=== PATIENT | male | born 1930 | race Caucasian/White ===

== ENCOUNTER 2017-01-05 07:56 | Emergency (ER) | payer MEDICARE, BC ==
[2017-01-05 08:07] VITALS: BP 142/62
--- NOTE | 2017-01-05 08:31 | UC ---
Eye Complaint HPI - HPI Summary HPI Summary: 86 yo male with right upper eyelid pain and redness x 2 days hurts to touch no d/c hx DM hx macular degeneration - History of Current Complaint Chief Complaint: UCEye Stated Complaint: EYE ISSUE Time Seen by Provider: 01/05/17 08:14 - Allergies/Home Medications Allergies/Adverse Reactions: Allergies Allergy/AdvReac Type Severity Reaction Status Date / Time No Known Allergies Allergy Verified 01/05/17 08:07 PMH/Surg Hx/FS Hx/Imm Hx Previously Healthy: Yes Endocrine History: Diabetes Cardiovascular History: Hypertension, Other Other Cardiovascular History: cardiomyopathy Respiratory History: COPD - Surgical History Surgical History: Yes Surgery Procedure, Year, and Place: T&A 17 YRS OF AGE- [facility]. APPENDECTOMY 2006- [place], [place]. RIGHT INGUINAL HERNIA REPAIR - [facility]. VASECTOMY - DR JUAREZ'S OFFICE. CATARACTS. TOOTH EXTRACTION. EYE LID SURGERY - Family History Known Family History: Positive: Hypertension, Diabetes - Social History Alcohol Use: None Alcohol Amount: taste of scotch Substance Use Type: None Smoking Status (MU): Former Smoker Type: Cigarettes Amount Used/How Often: 1/4-1/2 PPD FOR 20 YRS Length of Time of Smoking/Using Tobacco: 10 Have You Smoked in the Last Year: No When Did the Patient Quit Smoking/Using Tobacco: 1970 - Immunization History Most Recent Influenza Vaccination: 2015 Most Recent Tetanus Shot: remote Most Recent Pneumonia Vaccination: current Review of Systems Constitutional: Negative Skin: Negative Eyes: Negative ENT: Negative Respiratory: Negative Cardiovascular: Negative Gastrointestinal: Negative Genitourinary: Negative Motor: Negative Neurovascular: Negative Musculoskeletal: Negative Neurological: Negative Psychological: Negative All Other Systems Reviewed And Are Negative: Yes Physical Exam Triage Information Reviewed: Yes Appearance: Well-Appearing, No Pain Distress, Well-Nourished Vital Signs: Initial Vital Signs Temp 98.1 F 01/05/17 08:01 Pulse 77 01/05/17 08:01 Resp 16 01/05/17 08:01 BP 142/62 01/05/17 08:01 Pulse Ox 100 01/05/17 08:01 Eyes: Positive: Conjunctiva Clear, Other: - right upper lid sty (temopral aspect ) with upper lid cellulitis ENT: Positive: Hearing grossly normal. Negative: Nasal congestion, Nasal drainage, Trismus, Muffled/hoarse voice Neck: Positive: Supple, Nontender Respiratory: Positive: Lungs clear, Normal breath sounds, No respiratory distress, No accessory muscle use Cardiovascular: Positive: RRR, No Murmur Abdomen Description: Positive: Nontender, No Organomegaly Musculoskeletal: Positive: ROM Intact, No Edema Neurological: Positive: Alert Skin Exam: Normal Eye Complaint Course/Dx - Differential Dx/Diagnosis Provider Diagnoses: right upper eyelid stye with lid cellulitis Discharge - Discharge Plan Condition: Stable Disposition: HOME Prescriptions: Cephalexin CAP* [Keflex CAP*] 500 mg PO TID #21 cap Patient Education Materials: Cellulitis (ED), Stye (ED) Referrals: Chuck Jennings MD [Primary Care Provider] - Additional Instructions: lid cellulitis warm compresses recheck in 2-3 days if not improved
== END 2017-01-05 08:30 | disposition home or self-care (01) ==
LOC: UCEAST 07:56
DX: Z87.891 Personal history of nicotine dependence (principal); H00.011 Hordeolum externum right upper eyelid; H00.031 Abscess of right upper eyelid; E11.9 Type 2 diabetes mellitus without complications
CPT/HCPCS: 99212; G0463

== ENCOUNTER 2017-08-28 08:16 | Observation (INO) | payer MEDICARE, OTHER ==
[2017-08-28] MEDS ORDERED: NS 0.9% 1000 ML* 1,000 ML IV SCH (08:45)
[2017-08-28 09:07] LABS: ABS Basophils 0 10^3/ul (0-0.2); ABS Eosinophils 0.3 10^3/ul (0-0.6); ABS Lymphocytes 1.8 10^3/ul (1.0-4.8); ABS Monocytes 0.7 10^3/ul (0-0.8); ABS Neutrophils 5.9 10^3/ul (1.5-7.7); ABS Nucleated RBC 0 10^3/ul; Eosinophil % 3.3 % (0-6); Hematocrit 35 % (42-52); Hemoglobin 11.9 g/dl (14.0-18.0); Lymphocyte % 20.8 % (25-47); Mean Corpuscular HGB Conc 34 g/dl (31-36); Mean Corpuscular Hemoglobin 30 pg (27-31); Mean Corpuscular Volume 88 fL (80-94); Mean Platelet Volume 10 um3 (7.4-10.4); Nucleated Red Blood Cells % 0; Platelet Count 224 10^3/ul (150-450); Red Blood Count 3.98 10^6/ul (4.0-5.4); Red Cell Distribution Width 15 % (10.5-15); White Blood Count 8.8 10^3/ul (3.5-10.8)
--- NOTE | 2017-08-28 09:16 | RAD ---
INDICATION: Chest pain and tightness COMPARISON: Chest x-ray dated April 20, 2016 TECHNIQUE: Single AP portable view of the chest was obtained. FINDINGS: Image quality is compromised due to the relative inferiority of a portable chest x-ray. The heart and mediastinum exhibit normal size and contour. There is coarse atherosclerotic calcification overlying the arch of the aorta. The lungs are grossly clear. There is no evidence of a large pleural effusion. Visualized bones are normal for the patient's age. IMPRESSION: No radiographic evidence for acute cardiopulmonary abnormality on this portable chest x-ray.
[2017-08-28 09:19] LABS: EGFR Non-African American 76.1 (>60)
[2017-08-28 09:21] LABS: INR 0.87 (0.77-1.02)
[2017-08-28] MEDS ORDERED: Diltiazem IV* 5 MG/ML 5 ML VIAL (for loading dose/IV Push) (25 MG) IV SLOW PU ONE (09:21)
[2017-08-28] MEDS ORDERED: Diltiazem DRIP* 100 MG/100 ML ADDV.BAG IVPB ONE (09:21)
[2017-08-28] MEDS ORDERED: Furosemide TAB* 20 MG PO ONE (12:14)
--- NOTE | 2017-08-28 12:18 | ED ---
Matt Deal Angela, scribed for Dionisio Pelayo MD on 08/28/17 at 0841 . HPI Chest Pain - HPI Summary HPI Summary: This pt is a 87 y/o male presenting to [facility] c/o chest tightness since 22:00 last night. 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 Pt reports he thought he had indigestion after he ate the cookies. He notes he feels SOB and "winded" since last night. 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 He notes he was unable to sleep last night secondary to chest tightness. He rates his chest tightness 3-4 out of 10 in severity. Pt additionally reports he has a cough. Denies nausea, abd pain, LE swelling, calf pain. His meat carver is Dr. Polo. He notes hx of leaking mitral valve. Usually takes baby aspirin every day. Since he has an upcoming eye surgery he was told to stop taking them. Today he took bystolic (which he takes once a day, has taken it for 1 year now ) and 1 full aspirin. - History of Current Complaint Chief Complaint: EDChestPainROMI Hx Obtained From: Patient Onset/Duration: Started Hours Ago, Still Present Timing: Lasting Hours Current Severity: Mild Pain Intensity: 3 Pain Scale Used: 0-10 Numeric Chest Pain Location: Diffuse Chest Pain Radiates: No Character: Tightness Aggravating Factor(s): Nothing Alleviating Factor(s): Nothing Associated Signs and Symptoms: Positive: Chest Pain, Shortness of Breath, Cough. Negative: Nausea, Abdominal Pain, Calf Pain/Swelling - Allergy/Home Medications Allergies/Adverse Reactions: Allergies Allergy/AdvReac Type Severity Reaction Status Date / Time No Known Allergies Allergy Verified 08/28/17 08:24 Home Medications: Home Medications Albuterol HFA INHALER* [Ventolin HFA Inhaler*] 2 puff INH Q4H PRN 08/28/17 [ History Confirmed 08/28/17] Fluticasone/Vilanterol MDI(NF) [Breo Ellipta MDI 200/25(NF)] 1 puff INH DAILY [History Confirmed 08/28/17] Metformin ER (NF) 250 mg PO DAILY 08/28/17 [History Confirmed 08/28/17] Berkey-3 Fatty Acids (Nf) [Fish Oil (NF)] 1,000 mg PO DAILY 08/28/17 [History Confirmed 08/28/17] PMH/Surg Hx/FS Hx/Imm Hx Endocrine/Hematology History: Reports: Hx Diabetes - ON METFORMIN Denies: Hx Thyroid Disease Cardiovascular History: Reports: Hx Hypertension - ON MEDICATION, 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", Other Cardiovascular Problems/Disorders Denies: Hx Pacemaker/ICD Respiratory History: Reports: Hx Asthma - ALLERGIES, Hx Chronic Obstructive Pulmonary Disease (COPD), Hx Seasonal Allergies GI History: Reports: Hx Gastroesophageal Reflux Disease, Hx Irritable Bowel - years ago Denies: Hx Ulcer, Other GI Disorders History: Reports: Hx Benign Prostatic Hyperplasia, Hx Kidney Stones, Other Problems/Disorders - BPH Denies: Hx Dialysis, Hx Renal Disease Musculoskeletal History: Reports: Hx Arthritis - LOWER BACK, HIPS Denies: Hx Osteoporosis Sensory History: Reports: Hx Contacts or Glasses Denies: Hx Hearing Aid, Hx Hearing Problem Opthamlomology History: Reports: Hx Contacts or Glasses Neurological History: Denies: Hx Migraine, Hx Spinal Cord Injury, Hx Transient Ischemic Attacks ( TIA) Psychiatric History: Denies: Hx Panic Disorder - Surgical History Surgery Procedure, Year, and Place: T&A 16 YRS OF AGE- [facility]. APPENDECTOMY 2006- [place], [place]. RIGHT INGUINAL HERNIA REPAIR - [facility]. VASECTOMY - DR JUAREZ'S OFFICE. CATARACTS. TOOTH EXTRACTION. EYE LID SURGERY Hx Anesthesia Reactions: No Infectious Disease History: No Infectious Disease History: Reports: Hx Shingles - 4 years ago Denies: Hx Hepatitis, Hx Human Immunodeficiency Virus (HIV), Hx of Known/ Suspected MRSA, Traveled Outside the [place] in Last 30 Days - Family History Known Family History: Positive: Hypertension, Diabetes - Social History Alcohol Use: None Alcohol Amount: taste of scotch Substance Use Type: Reports: None Hx Tobacco Use: No Smoking Status (MU): Former Smoker Type: Cigarettes Amount Used/How Often: 1/4-1/2 PPD FOR 20 YRS Length of Time of Smoking/Using Tobacco: 10 Have You Smoked in the Last Year: No Review of Systems Negative: Fever Positive: Chest Pain Positive: Shortness Of Breath, Cough Negative: Abdominal Pain, Nausea Negative: Edema Skin: Negative Neurological: Negative All Other Systems Reviewed And Are Negative: Yes Physical Exam - Summary Physical Exam Summary: General: well-appearing, no pain distress Skin: warm, color reflects adequate perfusion, dry Head: normal Eyes: EOMI, HEATHER ENT: normal Neck: supple, nontender Respiratory: CTA, breath sounds present Cardiovascular: tachycardic and irregularly irregular rhythm Abdomen: soft, nontender Bowel: present Musculoskeletal: normal, strength/ROM intact Neurological: normal, sensory/motor intact, A&O x3 Psychological: affect/mood appropriate Triage Information Reviewed: Yes Vital Signs On Initial Exam: Initial Vitals Temp Pulse Resp BP Pulse Ox 98.3 F 130 19 168/88 98 08/28/17 08:19 08/28/17 08:19 08/28/17 08:19 08/28/17 08:19 08/28/17 08:19 Vital Signs Reviewed: Yes Diagnostics - Vital Signs Vital Signs Temp Pulse Resp BP Pulse Ox 08/28/17 08:19 98.3 F 130 19 168/88 98 - Laboratory Lab Results: Lab Results 08/28/17 08/28/17 08/28/17 Range/Units 08:35 08:35 08:35 WBC (3.5-10.8) 10^3/ul RBC (4.0-5.4) 10^6/ul Hgb (14.0-18.0) g/dl Hct (42-52) % MCV (80-94) fL MCH (27-31) pg MCHC (31-36) g/dl RDW (10.5-15) % Plt Count (150-450) 10^3/ul MPV (7.4-10.4) um3 Neut % (Auto) (38-83) % Lymph % (Auto) (25-47) % [place] % (Auto) (0-7) % Eos % (Auto) (0-6) % Baso % (Auto) (0-2) % Absolute Neuts (auto) (1.5-7.7) 10^3/ul Absolute Lymphs (auto) (1.0-4.8) 10^3/ul Absolute Monos (auto) (0-0.8) 10^3/ul Absolute Eos (auto) (0-0.6) 10^3/ul Absolute Basos (auto) (0-0.2) 10^3/ul Absolute Nucleated RBC 10^3/ul Nucleated RBC % INR (Anticoag Therapy) 0.87 (0.77-1.02) APTT 25.8 L (26.0-36.3) seconds D-Dimer, Quantitative < 200 (Less Than 230) ng/mL Sodium 136 (133-145) mmol/L Potassium 4.3 (3.5-5.0) mmol/L Chloride 102 (101-111) mmol/L Carbon Dioxide 26 (22-32) mmol/L Anion Gap 8 (2-11) mmol/L BUN 14 (6-24) mg/dL Creatinine 0.94 (0.67-1.17) mg/dL Est GFR ( Amer) 97.9 (>60) Est GFR (Non-Af Amer) 76.1 (>60) BUN/Creatinine Ratio 14.9 (8-20) Glucose 141 H (70-100) mg/dL Lactic Acid (0.5-2.0) mmol/L Calcium 9.0 (8.6-10.3) mg/dL Magnesium 2.1 (1.9-2.7) mg/dL Total Bilirubin 0.40 (0.2-1.0) mg/dL AST 30 (13-39) U/L ALT 36 (7-52) U/L Alkaline Phosphatase 41 (34-104) U/L Total Creatine Kinase 114 (10-223) U/L CK-MB (CK-2) 5.7 (0.6-6.3) ng/mL Troponin I 0.03 (<0.04) ng/mL C-Reactive Protein 14.89 H (< 5.00) mg/L B-Natriuretic Peptide 1081 H ( - 100) pg/mL Total Protein 6.2 L (6.4-8.9) g/dL Albumin 3.7 (3.2-5.2) g/dL Globulin 2.5 (2-4) g/dL Albumin/Globulin Ratio 1.5 (1-3) Lipase < 10 L (11.0-82.0) U/L TSH 2.98 (0.34-5.60) mcIU/mL 08/28/17 08/28/17 Range/Units 08:35 08:35 WBC 8.8 (3.5-10.8) 10^3/ul RBC 3.98 L (4.0-5.4) 10^6/ul Hgb 11.9 L (14.0-18.0) g/dl Hct 35 L (42-52) % MCV 88 (80-94) fL MCH 30 (27-31) pg MCHC 34 (31-36) g/dl RDW 15 (10.5-15) % Plt Count 224 (150-450) 10^3/ul MPV 10 (7.4-10.4) um3 Neut % (Auto) 67.9 (38-83) % Lymph % (Auto) 20.8 L (25-47) % [place] % (Auto) 7.6 H (0-7) % Eos % (Auto) 3.3 (0-6) % Baso % (Auto) 0.4 (0-2) % Absolute Neuts (auto) 5.9 (1.5-7.7) 10^3/ul Absolute Lymphs (auto) 1.8 (1.0-4.8) 10^3/ul Absolute Monos (auto) 0.7 (0-0.8) 10^3/ul Absolute Eos (auto) 0.3 (0-0.6) 10^3/ul Absolute Basos (auto) 0 (0-0.2) 10^3/ul Absolute Nucleated RBC 0 10^3/ul Nucleated RBC % 0 INR (Anticoag Therapy) (0.77-1.02) APTT (26.0-36.3) seconds D-Dimer, Quantitative (Less Than 230) ng/mL Sodium (133-145) mmol/L Potassium (3.5-5.0) mmol/L Chloride (101-111) mmol/L Carbon Dioxide (22-32) mmol/L Anion Gap (2-11) mmol/L BUN (6-24) mg/dL Creatinine (0.67-1.17) mg/dL Est GFR ( Amer) (>60) Est GFR (Non-Af Amer) (>60) BUN/Creatinine Ratio (8-20) Glucose (70-100) mg/dL Lactic Acid 1.8 (0.5-2.0) mmol/L Calcium (8.6-10.3) mg/dL Magnesium (1.9-2.7) mg/dL Total Bilirubin (0.2-1.0) mg/dL AST (13-39) U/L ALT (7-52) U/L Alkaline Phosphatase (34-104) U/L Total Creatine Kinase (10-223) U/L CK-MB (CK-2) (0.6-6.3) ng/mL Troponin I (<0.04) ng/mL C-Reactive Protein (< 5.00) mg/L B-Natriuretic Peptide ( - 100) pg/mL Total Protein (6.4-8.9) g/dL Albumin (3.2-5.2) g/dL Globulin (2-4) g/dL Albumin/Globulin Ratio (1-3) Lipase (11.0-82.0) U/L TSH (0.34-5.60) mcIU/mL Result Diagrams: 08/28/17 08:35 08/28/17 08:35 Lab Statement: Any lab studies that have been ordered have been reviewed, and results considered in the medical decision making process. - Radiology Chest XR Xray Interpretation: No Acute Changes - IMPRESSION: No radiographic evidence for acute cardiopulmonary abnormalitiy on this portable chest x-ray. Dr. Pelayo has reviewed this radiology report. Radiology Interpretation Completed By: Radiologist - EKG 08:28 Cardiac Rate: Tachycardia EKG Rhythm: Atrial Fibrillation - at 129 bpm Re-Evaluation - Re-Evaluation First Eval Re-Evaluation Time: 10:41 Comment: I reviewed the lab and XR results with the pt. Chest Pain Course/Dx - Course Course Of Treatment: BP noted and advised to follow up with PCP. Medications reviewed. I discussed pt care with Dr. Gonzalez, hospitalist, and Dr. Lora, meat carver. DISCUSSED WITH DR LORA WHO RECOMMENDED ADMISSION. CRITICAL CARE TIME LESS THAN 30 MINUTES. - Diagnoses Provider Diagnoses: New onset a-fib, Chest pain, CHF (congestive heart failure) - Provider Notifications Discussed Care Of Patient With: Cintia Gonzalez Time Discussed With Above Provider: 11:00 Instructed by Provider To: Other - I discussed pt care with Dr. Gonzalez, hospitalist. [11:46] I spoke with Dr. Lora, meat carver. Discharge - Discharge Plan Condition: Stable Disposition: ADMITTED TO [facility] Referrals: Chuck Jennings MD [Primary Care Provider] - The documentation as recorded by the Matt olivia Angela accurately reflects the service I personally performed and the decisions made by me, Dionisio Pelayo MD.
[2017-08-28] MEDS ORDERED: Albuterol HFA INHALER* 8 gm MDI INH PRN (15:01)
[2017-08-28] MEDS ORDERED: Acetaminophen TAB* 325 MG PO PRN (15:03)
--- NOTE | 2017-08-28 17:36 | ECHO ---
Patient: RG SALVADOR [facility] Rec#: [id number] : 1930 Date: 08/28/2017 Age: 87y Height: 172.72 cm / 68.0 in Weight: 75.75 kg / 167.0 lbs Sex: M BSA: 1.89 Room#: 441 Admit Date#: 08/28/2017 Type: Inpatient Referring: Cintia Gonzalez DO Reading: Dayday Lora MD Parking Line Painter: Lakia Rod CC: Chuck Jennings MD CC: Monica Polo MD Transthoracic Echocardiogram Indication: A-fib BP: 130/75 HR: 87 Rhythm: NSR Findings History: DM,HTN,leaky mitral valve,GERD,IBS,TIA. Technical Comments: The study quality is good. Completed at 1612. Left Ventricle: The left ventricular chamber size is normal. Mild concentric left ventricular hypertrophy is observed. Moderate global hypokinesis of the left ventricle is observed. There is mild to moderately decreased left ventricular systolic function. The estimated ejection fraction is 30-35%. Normal left ventricular diastolic filling is observed. Left Atrium: The left atrium is mildly dilated. Right Ventricle: The right ventricular cavity size is normal. The right ventricular global systolic function is normal. Right Atrium: The right atrium is mildly dilated. Aortic Valve: The aortic valve is trileaflet. There is mild aortic regurgitation. There is no evidence of aortic stenosis. Mitral Valve: The mitral valve leaflets are mildly thickened. There is moderate to severe mitral regurgitation. There is no evidence of mitral stenosis. Tricuspid Valve: The tricuspid valve leaflets are normal. There is mild to moderate tricuspid regurgitation. There is evidence of borderline pulmonary hypertension. There is no tricuspid stenosis. Pulmonic Valve: The pulmonic valve appears normal. There is trace to mild pulmonic regurgitation. There is no pulmonic stenosis. Pericardium: The pericardium appears normal. Aorta: There is moderate dilatation of the ascending aorta. There is no dilatation of the aortic arch. There is moderate dilatation of the aortic root. Pulmonary Artery: The main pulmonary artery appears normal. Venous: The inferior vena cava appears normal in size. There is a greater than 50% respiratory change in the inferior vena cava dimension. Conclusions Moderate global hypokinesis of the left ventricle is observed. There is mild to moderately decreased left ventricular systolic function. The estimated ejection fraction is 30-35%. There is mild aortic regurgitation. There is moderate to severe mitral regurgitation. There is mild to moderate tricuspid regurgitation. There is evidence of borderline pulmonary hypertension. The pericardium appears normal. Compared to study of 02/28/17, the LV function is slightly worse and MR is slightly worse Measurements Name Value Normal Range RVIDd (AP) 2D 2.2 cm (0.9 - 2.6) RVDdMajor (2D) 2.9 cm (2.2 - 4.4) RAd ISD 4CH 5.6 cm (3.4 - 4.9) RA (A4C)W 3.6 cm (2.9 - 4.6) IVSd (2D) 1.2 cm (0.6 - 1) LVPWd (2D) 1.1 cm (0.6 - 1) LVIDd (2D) 4.9 cm (3.6 - 5.4) LVIDs (2D) 4 cm - LV FS (2D) 18 % (25 - 45) Aortic Annulus 2.4 cm (1.4 - 2.6) Ao root diameter (2D) 4.3 cm (2.1 - 3.5) Ascending Ao 4.8 cm (2.1 - 3.4) Aortic arch 2.9 cm (1.8 - 3.4) Descending Ao 0.5 cm - LA dimension (AP) 2D 4.1 cm (2.3 - 3.8) LAd ISD 4CH 6.1 cm (2.9 - 5.3) LA ISD 4CH W 4.9 cm (2.5 - 4.5) Name Value Normal Range LA ESV SP 4CH (A/L) 80 ml - LA ESV SP 2CH (A/L) 93 ml - LA ESV BP (A/L) 87 ml - LA ESV BP (A/L) index 46.12 ml/m2 - LA ESV SP 4CH (MOD) 76 ml - LA ESV SP 2CH (MOD) 86 ml - Name Value Normal Range MV E-wave Vmax 1.1 m/sec - MV deceleration time 171 msec - MV A-wave Vmax 0.5 m/sec - MV E:A ratio 2.19 ratio - LV septal e' Vmax 0.05 m/sec - LV lateral e' Vmax 0.05 m/sec - LV E:e' septal ratio 22 ratio - LV E:e' lateral ratio 22 ratio - Name Value Normal Range AV Vmax 1.2 m/sec - AV VTI 23.6 cm - AV peak gradient 6.04 mmHg - AV mean gradient 3.25 mmHg - LVOT Vmax 1 m/sec - LVOT VTI 19.2 cm - LVOT peak gradient 3.71 mmHg - LVOT mean gradient 1.74 mmHg - AR PHT 497 msec - AR peak gradient 44.64 mmHg - Name Value Normal Range MR Vmax 5.1 m/sec - MR VTI 173 cm - MR flow (PISA) 193.82 ml/sec - MR ERO 3.8 cm2 - MR PISA radius 0.9 cm - Name Value Normal Range TR Vmax 2.8 m/sec - TR peak gradient 31 mmHg - RAP 3 mmHg - RVSP 33 mmHg - IVC diameter 1.6 cm - Name Value Normal Range PV Vmax 0.6 m/sec - PV peak gradient 1.32 mmHg -
[2017-08-28] MEDS: Albuterol/Ipratropium NEB.SOL* Albuterol 2.5 MG/Ipratropium 0.5 MG 3 ML INH SCH ×2 (18:12→18:14)
[2017-08-28] MEDS ORDERED: Atorvastatin* 40 MG TAB PO SCH (21:00)
[2017-08-28] MEDS ORDERED: Diltiazem DRIP* 100 MG/100 ML ADDV.BAG IVPB SCH (21:00)
[2017-08-28] MEDS ORDERED: Diltiazem IV VIAL* 125 MG in NS 0.9% 100 ML* 100 ML IV SCH ×2 (21:00→23:00)
[2017-08-28] MEDS: Apixaban* 2.5 MG TAB PO SCH (21:16)
[2017-08-28] MEDS: Dronedarone TAB* 400 MG PO SCH (21:16)
--- NOTE | 2017-08-28 22:23 | CONS ---
CC: Dr. Monica Polo * CARDIOLOGY CONSULTATION: DATE OF CONSULT: 08/28/17 INDICATION FOR CONSULTATION: Atrial fibrillation. HISTORY OF PRESENT ILLNESS: The patient is an 87-year-old gentleman with a history of nonischemic cardio-myopathy, who came to the emergency room because of shortness of breath and mild congestive heart failure. In the emergency room , he was found to be in atrial fibrillation with rapid ventricular response. The patient was started on a diltiazem drip and converted back to normal sinus rhythm on his own. The patient states that he takes his blood pressure on a daily basis. Yesterday , his heart rate and blood pressure were normal. Earlier this morning when he took his blood pressure, his blood pressure was normal at 140/80; however, his heart rate read a 120. He did not believe this and tried to take his pulse radially, but was unable to get his pulse. Throughout the morning, he started feeling more short of breath and then decided to come to the emergency room. PAST MEDICAL HISTORY: Significant for nonischemic cardiomyopathy, hypertension , diabetes, gastroesophageal reflux disease, aortic aneurysm. PAST SURGICAL HISTORY: Appendectomy, tonsillectomy. OUTPATIENT MEDICATIONS: 1. Irbesartan 150 mg a day. 2. 2.5 mg a day. 3. Metformin 1000 mg q.h.s. 4. Aspirin 81 mg a day. 5. Atorvastatin 40 mg a day. 6. Finasteride 5 mg a day. 7. Multivitamin a day. 8. Omeprazole 20 mg a day. ALLERGIES: No known drug allergies. FAMILY HISTORY: Positive for Alzheimer's disease. His mother at 104 years of age. SOCIAL HISTORY: He is a previous smoker, but quit many years ago. He drinks 1 glass of wine a day. 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 He is accompanied by his daughter. PHYSICAL EXAM: Height is 5 feet and 8 inches, weight is 165 pounds. Temperature 98.3, heart rate 81, respiratory rate 20, oxygen saturation 95% on 2 L, blood pressure 128/78. Sclerae anicteric. Oropharynx is pink without erythema. Carotids are 2+ without bruits. JVD is normal. Thyroid is normal. Cardiac Exam: S1, S2 without any murmurs, rubs, or gallops. PMI is normal. Lungs are clear to auscultation bilateral. There is no dullness to percussion. Abdomen is soft, nontender, nondistended with normoactive bowel sounds. Extremities show no edema. He has 2+ pulses throughout. The patient is awake, alert, and oriented. He moves all 4 extremities equally. DIAGNOSTIC STUDIES/LAB DATA: CBC within normal limits. Chemistry is within normal limits. AST and ALT are normal. BNP is elevated at 1081. CRP is elevated at 14. TSH 2.98. EKG in the emergency room was atrial fibrillation with rapid ventricular response. On the floor, his EKG shows normal sinus rhythm with LVH. IMPRESSION: This is an 87-year-old gentleman with a history of nonischemic cardiomyopathy, who came to the hospital because of shortness of breath. He was found to be in mild congestive heart failure. He was also found to be in atrial fibrillation with rapid ventricular response. He converted to normal sinus rhythm on his own. Currently, the patient has no symptoms. He feels much better now that he is back in normal sinus rhythm. RECOMMENDATIONS: For now, my recommendation is to start antiarrhythmic therapy and will start Multaq 400 mg b.i.d. Because of his age and his renal function, the patient could be started on amiodarone 200 mg b.i.d., but we will start with Multaq for now and Dr. Polo can follow that up. Because of his age and his atrial fibrillation, the patient should be on anticoagulation. The patient will be started on Eliquis 2.5 mg b.i.d. The patient will be observed overnight. If no further problems, the patient will follow up with Dr. Polo as an outpatient in 3 to 4 weeks. [id number]/[facility] #: [id number]
--- NOTE | 2017-08-29 00:04 | HP ---
CC: Dr. Jennings; Dr. Polo * HISTORY AND PHYSICAL: DATE OF ADMISSION: 08/28/17 PRIMARY CARE PROVIDER: Dr. Jennings. WILDERNESS GUIDE: Dr. Polo. CHIEF COMPLAINT: Chest discomfort. HISTORY OF PRESENT ILLNESS: Mr. Estrada is an 87-year-old male, who states that yesterday evening, he was watching the [employer] basketball game and while doing so, he does state that he ate what he describes as too many [employer]. He described these as being the Thin Mints. He began to have upset stomach. He felt an indigestion-type feeling in his upper abdomen and chest. He took [place] and an antacid without any relief. He states that he slept very poorly to not sleeping at all last night. In the morning, the patient took his blood pressure due to feeling unwell and noted that the blood pressure seemed normal; however, his pulse rate was elevated at 120. He began to feel "weird." He again had this indigestion feeling more so in the chest. He also describes a tightness within his chest. Because of the tightness in the chest, he presented to the emergency room. The patient does state that in addition to eating what he described as too many Thin Mints, he also had 1 beer on the evening prior to admission. Additionally, he admits to drinking several cups of half-caff coffee yesterday. PAST MEDICAL HISTORY: 1. Type 2 diabetes. 2. COPD/asthma. 3. Macular degeneration. 4. Nonischemic cardiomyopathy. PAST SURGICAL HISTORY: 1. Eyelid surgery. 2. Tonsillectomy. 3. Appendectomy. 4. Inguinal hernia surgery, the patient is unclear which side. MEDICATIONS: 1. [place]-3 fatty acid 1000 mg p.o. daily. 2. Breo Ellipta 200/25 one puff inhaled daily. 3. Albuterol HFA 2 puffs inhaled q.4 hours p.r.n. shortness of breath. 4. Spiriva 1 puff inhaled daily. 5. Bystolic 2.5 mg p.o. daily. 6. Aspirin 81 mg p.o. daily. 7. Omeprazole 20 mg p.o. daily. 8. Multivitamin 1 tab p.o. daily. 9. Metformin ER 250 mg p.o. daily. 10. Irbesartan 150 mg p.o. daily. 11. Align 4 mg p.o. daily. 12. Lipitor 40 mg p.o. q.h.s. 13. DuoNeb 1 neb inhaled q.4 hours p.r.n. shortness of breath. ALLERGIES: No known drug allergies. FAMILY HISTORY: Mom at the age of 104, she had macular degeneration and coronary disease. Dad at the age of 76. He also had coronary disease and Alzheimer's. The patient had 2 brothers, one from lung cancer, one from metastatic thyroid cancer. SOCIAL HISTORY: The patient is a former smoker. He states he quit several decades ago. He drinks alcohol on occasion. 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 He is x2. He has 5 children. His daughter, Annika, is his healthcare proxy. REVIEW OF SYSTEMS: A complete 11-system review of systems is obtained. Pertinent positives and negatives are as per HPI and otherwise negative. PHYSICAL EXAMINATION GENERAL: The patient is a well-developed elderly male, who appears younger than his stated age, sitting up in the stretcher, in no acute distress. VITAL SIGNS: Blood pressure 130/75, pulse 83, respirations 17, temp 98.3, O2 sat 98% on room air. HEENT: Pupils are equal and round. Extraocular muscles are intact. Oropharynx is clear. Oral mucosa is moist. The patient has a bridge on top and bottom. There is no submandibular, cervical, or supraclavicular adenopathy. PULMONARY: Lungs are clear to auscultation bilaterally. CARDIAC: Normal S1, S2. Regular rate and rhythm. I do not appreciate any murmurs. There is no lower extremity edema. ABDOMEN: Bowel sounds are present. Abdomen is soft, nontender, nondistended. MUSCULOSKELETAL: There is no cyanosis or clubbing of the digits. There is full active range of motion of all 4 extremities. NEURO: Cranial nerves II through XII are grossly intact. Sensation is intact to light touch throughout. Strength is 5/5 and symmetric to both upper and lower extremities bilaterally. PSYCH: The patient is alert. He is oriented x3. Affect appears appropriate. SKIN: Warm and dry. There are no rashes. DIAGNOSTIC STUDIES/LAB DATA: WBC 8.8, hemoglobin 11.9, hematocrit 35, platelets 224. INR is 0.87, D-dimer less than 200. Sodium 136, potassium 4.3, chloride 102, CO2 26, BUN 14, creatinine 0.94, glucose 141, lactic acid 1.8, calcium 9.0, magnesium 2.1. Bilirubin 0.4, AST 30, ALT 36, alk phos 41. CPK 114, CK-MB 5.7. Troponin 0.03, followed up 0.02. CRP 14.89. BNP 1081. Albumin 3.7. Lipase less than 10. TSH 2.98. EKG on presentation to the emergency room revealed atrial fibrillation with rapid ventricular response, slight ST depressions in the lateral leads. Chest x-ray: No radiographic evidence for acute cardiopulmonary abnormality. ASSESSMENT AND PLAN: Mr. Estrada is an 87-year-old male, who has a history of what appears to be a nonischemic cardiomyopathy, hypertension, and type 2 diabetes, who presents to the emergency room with complaints of chest tightness and was found to be in atrial fibrillation. The patient spontaneously converted to normal sinus rhythm in the ER. 1. Atrial fibrillation with rapid ventricular response. The patient does describe having palpitations and tightness in his chest wall and atrial fibrillation. He has not described this until the day of admission. Question is he may have been going in and out of atrial fibrillation; however, as the patient is able to identify that he felt unwell in the atrial fibrillation, I suspect this is not the case. The patient will be in seen in consultation by Dr. Lora. For now, the patient will continue on his Bystolic. He will need to begin anticoagulation and this discussion will need to be had. Transthoracic echocardiogram will be ordered. The patient will have another troponin to rule out acute coronary syndrome. I question whether or not his atrial fibrillation may be related to caffeine intake given significant amount of chocolate he ate and the amount of coffee he drank yesterday. We will a no- to low-caffeine diet. 2. Hypertension. The patient's blood pressure is under good control. He will be maintained on his usual home medication regimen. This will be monitored. 3. Type 2 diabetes. The patient's most recent hemoglobin A1c that we have in our system was 6.8% in September 2015. His blood sugar in the emergency room today was slightly elevated at 141. He will continue on his metformin at his current dose. Fingersticks will be obtained a.c., h.s., and we will monitor his blood sugars. I am going to hold off on a lispro sliding scale for now; however, if his sugars are markedly elevated, this can be added and his metformin dose can be modified. 4. Nonischemic cardiomyopathy. The patient will continue his Bystolic and losartan. He will be having a repeat echocardiogram today. His most recent echo from February 2017 did show improvement from an echo obtained in July 2016. 5. DVT prophylaxis. According to the Adult Thrombosis Prophylaxis Risk Factor Assessment Guide, the patient has a total risk factor score of 4, making him high risk as he will likely be started on full anticoagulation. This will act as a DVT prophylaxis. 6. Code status is full. Again, the patient indicates that his daughter, Annika, is his healthcare proxy. TIME SPENT: Sixty-five minutes was spent admitting this patient. [id number]/[facility] #: [id number] CHAVEZ
[2017-08-29] MEDS: Albuterol/Ipratropium NEB.SOL* Albuterol 2.5 MG/Ipratropium 0.5 MG 3 ML INH SCH ×3 (00:08→08:59)
--- NOTE | 2017-08-29 05:34 | PN ---
Progress Note - Progress Note Date of Service: 08/29/17 Note: Patient went back into rapid afib, diltiazem drip was resumed and titrated to 10 mg/hr. Went back in NSR several hours later, drip d/c and PO diltiazem started.
[2017-08-29] MEDS ORDERED: Diltiazem TAB* 30 MG PO SCH (06:00)
[2017-08-29] MEDS ORDERED: Omeprazole CAP* 20 MG PO SCH (07:30)
[2017-08-29] MEDS: Tiotropium CAP.INH* CAP.INH/18 MCG (USE ORDER SET !) INH SCH ×2 (08:32→08:59)
[2017-08-29] MEDS ORDERED: Albuterol/Ipratropium NEB.SOL* Albuterol 2.5 MG/Ipratropium 0.5 MG 3 ML INH PRN (08:40)
[2017-08-29] MEDS: Apixaban* 2.5 MG TAB PO SCH (08:50)
[2017-08-29] MEDS: Dronedarone TAB* 400 MG PO SCH (08:50)
[2017-08-29] MEDS ORDERED: Multivitamins/Minerals TAB PO SCH (09:00)
[2017-08-29] MEDS ORDERED: CMCS:Nebivolol TAB (NF) 2.5 MG TAB PO SCH (09:00)
[2017-08-29] MEDS ORDERED: Spiriva Inhaler DEVICE* 1 EACH DEVICE INH ONE (09:00)
[2017-08-29] MEDS ORDERED: Fluticasone/Vilanterol MDI(NF) 200/25 MDI INH SCH (09:00)
[2017-08-29] MEDS ORDERED: Aspirin EC Low Dose* 81 MG TAB.EC PO SCH (09:00)
[2017-08-29] MEDS ORDERED: Losartan TAB* 25 MG PO SCH (09:00)
[2017-08-29] MEDS ORDERED: Metformin ER (NF) 500 MG TAB PO SCH (09:00)
--- NOTE | 2017-08-29 11:44 | PN ---
Subjective Date of Service: 08/29/17 Interval History: Pt is feeling well. He denies any SOB or pain. No palpitations at this time. He states he also did not feel palpitations last night when he went back into [facility]. Objective Active Medications: Acetaminophen (Tylenol Tab*) 650 mg PO Q4H PRN PRN Reason: PAIN Last Admin: 08/28/17 15:16 Dose: 650 mg Albuterol (Ventolin Hfa Inhaler*) 2 puff INH Q4H PRN PRN Reason: SOB/WHEEZING Albuterol/Ipratropium (Duoneb (Albuterol 2.5 Mg/Ipratropium 0.5 Mg)) 1 neb INH Q2H PRN PRN Reason: SOB/WHEEZING Apixaban (Eliquis) 2.5 mg PO BID [facility] Last Admin: 08/29/17 08:50 Dose: 2.5 mg Aspirin (Aspirin Ec Low Dose*) 81 mg PO QAM [facility] Last Admin: 08/29/17 08:50 Dose: 81 mg Atorvastatin Calcium (Lipitor*) 40 mg PO 2100 [facility] Last Admin: 08/28/17 21:16 Dose: 40 mg Diltiazem HCl (Cardizem Tab*) 30 mg PO Q6HR [facility] Last Admin: 08/29/17 06:07 Dose: 30 mg Dronedarone (Multaq Tab*) 400 mg PO BID [facility] Last Admin: 08/29/17 08:50 Dose: 400 mg Fluticasone/Vilanterol (Breo Ellipta Mdi 200/25(Nf)) 1 puff INH DAILY [facility] Last Admin: 08/29/17 08:33 Dose: Not Given Losartan Potassium (Cozaar Tab*) 50 mg PO QAM [facility] Last Admin: 08/29/17 08:50 Dose: 50 mg Metformin HCl (Metformin Er (Nf)) 250 mg PO DAILY [facility] Last Admin: 08/29/17 08:48 Dose: Not Given Multivitamins/Minerals (Theragran/Minerals Tab*) [facility] Admin: 08/29/17 08:50 Dose: 1 tab Nebivolol (Bystolic Tab (Nf)) 2.5 mg PO DAILY [facility] Last Admin: 08/29/17 08:50 Dose: 2.5 mg Omeprazole (Prilosec Cap*) 20 mg PO DAILY@0730 [facility] Last Admin: 08/29/17 06:07 Dose: 20 mg Tiotropium Rotan (Spiriva Cap.Inh*) 1 cap INH DAILY [facility] Last Admin: 08/29/17 08:59 Dose: 1 cap Vital Signs - 8 hr 08/29/17 08/29/17 08/29/17 03:40 04:00 04:30 Temperature 98.9 F Pulse Rate Respiratory 20 Rate Blood Pressure 114/68 121/83 (mmHg) O2 Sat by Pulse Oximetry 08/29/17 08/29/17 08/29/17 05:00 05:01 07:17 Temperature 98.6 F Pulse Rate 108 78 Respiratory 20 Rate Blood Pressure 106/82 133/76 (mmHg) O2 Sat by Pulse 97 98 Oximetry 08/29/17 09:10 Temperature Pulse Rate 75 Respiratory 16 Rate Blood Pressure (mmHg) O2 Sat by Pulse 98 Oximetry Oxygen Devices in Use Now: None Appearance: Elderly male sitting up on the edge of the bed, NAD Eyes: No Scleral Icterus Ears/Nose/Mouth/Throat: Mucous Membranes Moist Respiratory: Symmetrical Chest Expansion and Respiratory Effort, Clear to Auscultation Cardiovascular: NL Sounds; No Murmurs; No JVD, RRR, No Edema Abdominal: NL Sounds; No Tenderness; No Distention Extremities: No Clubbing, Cyanosis Skin: No Rash or Ulcers, No Nodules or Sclerosis Neurological: Alert and Oriented x 3 Result Diagrams: 08/28/17 08:35 08/28/17 08:35 Additional Lab and Data: Lab Results 08/28/17 08/28/17 08/28/17 Range/Units 08:35 08:35 08:35 WBC (3.5-10.8) 10^3/ul RBC (4.0-5.4) 10^6/ul Hgb (14.0-18.0) g/dl Hct (42-52) % MCV (80-94) fL MCH (27-31) pg MCHC (31-36) g/dl RDW (10.5-15) % Plt Count (150-450) 10^3/ul MPV (7.4-10.4) um3 Neut % (Auto) (38-83) % Lymph % (Auto) (25-47) % [place] % (Auto) (0-7) % Eos % (Auto) (0-6) % Baso % (Auto) (0-2) % Absolute Neuts (auto) (1.5-7.7) 10^3/ul Absolute Lymphs (auto) (1.0-4.8) 10^3/ul Absolute Monos (auto) (0-0.8) 10^3/ul Absolute Eos (auto) (0-0.6) 10^3/ul Absolute Basos (auto) (0-0.2) 10^3/ul Absolute Nucleated RBC 10^3/ul Nucleated RBC % INR (Anticoag Therapy) 0.87 (0.77-1.02) APTT 25.8 L (26.0-36.3) seconds D-Dimer, Quantitative < 200 (Less Than 230) ng/mL Sodium 136 (133-145) mmol/L Potassium 4.3 (3.5-5.0) mmol/L Chloride 102 (101-111) mmol/L Carbon Dioxide 26 (22-32) mmol/L Anion Gap 8 (2-11) mmol/L BUN 14 (6-24) mg/dL Creatinine 0.94 (0.67-1.17) mg/dL Est GFR ( Amer) 97.9 (>60) Est GFR (Non-Af Amer) 76.1 (>60) BUN/Creatinine Ratio 14.9 (8-20) Glucose 141 H (70-100) mg/dL Lactic Acid (0.5-2.0) mmol/L Calcium 9.0 (8.6-10.3) mg/dL Magnesium 2.1 (1.9-2.7) mg/dL Total Bilirubin 0.40 (0.2-1.0) mg/dL AST 30 (13-39) U/L ALT 36 (7-52) U/L Alkaline Phosphatase 41 (34-104) U/L Total Creatine Kinase 114 (10-223) U/L CK-MB (CK-2) 5.7 (0.6-6.3) ng/mL Troponin I 0.03 (<0.04) ng/mL C-Reactive Protein 14.89 H (< 5.00) mg/L B-Natriuretic Peptide 1081 H ( - 100) pg/mL Total Protein 6.2 L (6.4-8.9) g/dL Albumin 3.7 (3.2-5.2) g/dL Globulin 2.5 (2-4) g/dL Albumin/Globulin Ratio 1.5 (1-3) Lipase < 10 L (11.0-82.0) U/L TSH 2.98 (0.34-5.60) mcIU/mL 08/28/17 08/28/17 Range/Units 08:35 08:35 WBC 8.8 (3.5-10.8) 10^3/ul RBC 3.98 L (4.0-5.4) 10^6/ul Hgb 11.9 L (14.0-18.0) g/dl Hct 35 L (42-52) % MCV 88 (80-94) fL MCH 30 (27-31) pg MCHC 34 (31-36) g/dl RDW 15 (10.5-15) % Plt Count 224 (150-450) 10^3/ul MPV 10 (7.4-10.4) um3 Neut % (Auto) 67.9 (38-83) % Lymph % (Auto) 20.8 L (25-47) % [place] % (Auto) 7.6 H (0-7) % Eos % (Auto) 3.3 (0-6) % Baso % (Auto) 0.4 (0-2) % Absolute Neuts (auto) 5.9 (1.5-7.7) 10^3/ul Absolute Lymphs (auto) 1.8 (1.0-4.8) 10^3/ul Absolute Monos (auto) 0.7 (0-0.8) 10^3/ul Absolute Eos (auto) 0.3 (0-0.6) 10^3/ul Absolute Basos (auto) 0 (0-0.2) 10^3/ul Absolute Nucleated RBC 0 10^3/ul Nucleated RBC % 0 INR (Anticoag Therapy) (0.77-1.02) APTT (26.0-36.3) seconds D-Dimer, Quantitative (Less Than 230) ng/mL Sodium (133-145) mmol/L Potassium (3.5-5.0) mmol/L Chloride (101-111) mmol/L Carbon Dioxide (22-32) mmol/L Anion Gap (2-11) mmol/L BUN (6-24) mg/dL Creatinine (0.67-1.17) mg/dL Est GFR ( Amer) (>60) Est GFR (Non-Af Amer) (>60) BUN/Creatinine Ratio (8-20) Glucose (70-100) mg/dL Lactic Acid 1.8 (0.5-2.0) mmol/L Calcium (8.6-10.3) mg/dL Magnesium (1.9-2.7) mg/dL Total Bilirubin (0.2-1.0) mg/dL AST (13-39) U/L ALT (7-52) U/L Alkaline Phosphatase (34-104) U/L Total Creatine Kinase (10-223) U/L CK-MB (CK-2) (0.6-6.3) ng/mL Troponin I (<0.04) ng/mL C-Reactive Protein (< 5.00) mg/L B-Natriuretic Peptide ( - 100) pg/mL Total Protein (6.4-8.9) g/dL Albumin (3.2-5.2) g/dL Globulin (2-4) g/dL Albumin/Globulin Ratio (1-3) Lipase (11.0-82.0) U/L TSH (0.34-5.60) mcIU/mL Assess/Plan/Problems-Billing Mr Estrada is a 87 yo M who has a h/o non-ischemic CM, Type II DM and HTN who presented to the ER with c/o chest tightness and rapid pulse and was found to be in rapid afib. - Patient Problems (1) Atrial fibrillation with RVR Current Visit: Yes Status: Acute Code(s): I48.91 - UNSPECIFIED ATRIAL FIBRILLATION SNOMED Code(s): 874542023995384 Comment: The patient converted to NSR in the ER but went back into afib overnight. He was placed on a diltiazem drip. He converted again to NSR around 0530 this AM. Will initiate metoprolol 12.5mg BID today. Stop oral diltiazem. Continue multaq and eliquis per Dr. Lora. Follow up with Dr Polo in the next 2-3 weeks. (2) HTN (hypertension) Current Visit: Yes Status: Chronic Code(s): I10 - ESSENTIAL (PRIMARY) HYPERTENSION SNOMED Code(s): 07085820 Comment: BP is under good control. Continue current medication regimen. (3) Type 2 diabetes mellitus Current Visit: Yes Status: Chronic Comment: Continue metformin. Sugars are under fair control. (4) COPD (chronic obstructive pulmonary disease) Current Visit: Yes Status: Acute Code(s): J44.9 - CHRONIC OBSTRUCTIVE PULMONARY DISEASE, UNSPECIFIED SNOMED Code(s): 26872517 Comment: No signs of exacerbation. Continue spiriva and prn albuterol and duonebs. (5) Hyperlipidemia Current Visit: Yes Status: Chronic Code(s): E78.5 - HYPERLIPIDEMIA, UNSPECIFIED SNOMED Code(s): 73169228 Comment: Continue atorvastatin. (6) DVT prophylaxis Current Visit: Yes Status: Acute Code(s): FBC6031 - SNOMED Code(s): 762540866 Comment: Tee (7) Full code status Current Visit: Yes Status: Acute Code(s): Z78.9 - OTHER SPECIFIED HEALTH STATUS SNOMED Code(s): 080475685
[2017-08-29] MEDS ORDERED: Metoprolol Tartrate TAB* 25 MG PO SCH (12:00)
[2017-08-29 12:06] VITALS: BP 142/71
--- NOTE | 2017-08-30 21:47 | DS ---
CC: Dr. Jennnigs; Dr. Polo * DISCHARGE SUMMARY: DATE OF ADMISSION: 08/28/17 DATE OF DISCHARGE: 08/29/17 PRIMARY CARE PHYSICIAN: Dr. Jennings. STAPLING MACHINE OPERATOR: Dr. Polo. PRINCIPAL DIAGNOSIS: Paroxysmal atrial fibrillation. SECONDARY DIAGNOSES: 1. Chronic obstructive pulmonary disease. 2. Hyperlipidemia. 3. Type 2 diabetes. 4. Hypertension. DISCHARGE MEDICATIONS: 1. [place]-3 fatty acid 1000 mg p.o. daily. 2. Breo Ellipta 200/25 one puff inhaled daily. 3. Albuterol 2 puffs inhaled q.4 hours p.r.n. shortness of breath. 4. Spiriva 1 puff inhaled daily. 5. Aspirin 81 mg p.o. daily. 6. Omeprazole 20 mg p.o. daily. 7. Multivitamin 1 tab p.o. daily. 8. Metformin ER 250 mg p.o. daily. 9. Irbesartan 150 mg p.o. daily. 10. Align 4 mg p.o. daily. 11. Lipitor 40 mg p.o. q.h.s. 12. DuoNeb 1 neb inhaled q.4 hours p.r.n. shortness of breath. 13. Metoprolol tartrate 12.5 mg p.o. b.i.d. 14. Dronedarone 400 mg p.o. b.i.d. 15. Eliquis 2.5 mg p.o. b.i.d. HOSPITAL COURSE: Mr. Estrada is an 87-year-old male who presented to the emergency room on 08/28/17 with complaints of chest pain. He was found to be in rapid atrial fibrillation. While in the emergency room, the patient received diltiazem IV and spontaneously converted to normal sinus rhythm. The patient was admitted to obtain echocardiogram and initiate anticoagulation therapy. The patient had his transthoracic echocardiogram performed on the afternoon of 08/28/17. This revealed an EF of 30% to 35% with normal diastolic filling. Moderate global hypokinesis of the left ventricle is noted. Compared to a study of 02/28/17, the LV function was slightly worse and the MR is slightly worse. The patient was seen in consultation by Dr. Lora, who recommended initiating Multaq and Eliquis, which were started. On the evening of 08/28/17, the patient again went into rapid atrial fibrillation. He was started on diltiazem drip. He spontaneously converted again to normal sinus rhythm in the morning of 08/29/17. At that point, he was started on oral diltiazem. Dr. Lora again saw the patient and recommended initiating beta- sly therapy in addition to the Multaq and Eliquis. The diltiazem was discontinued. The patient's Bystolic that he had been on previously was discontinued and he was started on metoprolol 12.5 mg p.o. twice daily in addition to Multaq. The patient has been instructed to return to the emergency room if he develops chest pain, rapid atrial fibrillation, or shortness of breath. He has also been instructed to contact Dr. Polo's office if he goes back into atrial fibrillation though with a controlled rate. At this point, the patient is feeling quite well and stable for discharge home. FOLLOW-UP CONCERNS: The patient is being discharged to home today, 08/29/17. ACTIVITY LEVEL: As tolerated. DIET: No added salt. CONDITION ON DISCHARGE: Stable. TIME SPENT: 35 minutes were spent discharging this patient. [id number]/[facility] #: [id number] MTDD
== END 2017-08-29 12:34 | disposition home or self-care (01) ==
LOC: ED 08:16 → MEDTELE 13:33
PROVIDERS: ADMIT Hospitalist; ATTEND Hospitalist
DX: I48.0 Paroxysmal atrial fibrillation (principal); J44.9 Chronic obstructive pulmonary disease, unspecified; E11.9 Type 2 diabetes mellitus without complications; I10 Essential (primary) hypertension; E78.5 Hyperlipidemia, unspecified; R07.9 Chest pain, unspecified; R06.02 Shortness of breath; Z79.82 Long term (current) use of aspirin; Z86.79 Personal history of other diseases of the circulatory system
CPT/HCPCS: 36415; 71045; 80053; 82550; 82553; 83605; 83690; 83735; 83880; 84443; 84484; 85025; 85379; 85610; 85730; 86140; 93005; 93306; 94640; 94760; 96374; 96375; 99284; A9270-GY; G0378

== ENCOUNTER 2017-09-07 19:46 | Emergency (ER) | payer MEDICARE, OTHER ==
--- OUTSIDE RECORDS SUMMARY | 2017-09-07 19:54 | XMS REPORT ---
:1930 External Reference #:[id number] Author Organization [facility] Address [address] [place] [id number] Phone [phone] Care Team Providers Name Role Phone Chuck Jennings MD Care Team Information Blade Changer Unavailable Chuck Jennings MD Primary Care Physician Unavailable Payers Type Date Identification Numbers Payment Provider Subscriber Medicare Primary Effective: Policy Number: [employer] [place] Estrada 1995 [id number] keshia [email or web address] PayID: [id number] [address] [place] [address] Medigap Part B Effective: 2017 Policy Number: [id number] [employer] [place] Estrada Group Number: [id number] [address] PayID: [id number] [place] [address] Problems Date Description Provider Status Onset: 06/13/2012 Essential hypertension Active Onset: 06/13/2012 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 Active asthmaticus Onset: 06/13/2012 Chronic rhinitis Sarah Ovalle M.D. Active Onset: 06/13/2012 Disorder of the larynx Sarah Ovalle M.D. Active Onset: 10/05/2016 Uncomplicated moderate persistent Sarah Ovalle M.D. Active asthma Onset: 04/20/2016 Cough Sarah Ovalle M.D. Active Onset: 01/21/2016 Moderate persistent asthma with Sarah Ovalle M.D. Active (acute) exacerbation Onset: 06/26/2015 Uncomplicated moderate persistent Magdalena Man M.D. Active asthma Onset: 06/26/2015 Allergic rhinitis due to animals Magdalena Man M.D. Active Onset: 05/14/2014 Allergic rhinitis Sarah Ovalle M.D. Active Onset: 05/14/2014 Allergic rhinitis due to pollen Sarah Ovalle M.D. 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 Home Environment There is no basement Home Environment Does not use a dehumidifier Home Environment Water Source: [facility] Home Environment Does not have an air conditioner Home Environment There are draperies in the home Home Environment The home is not christa Home Environment The floors are wood Home Environment Uses hot water heating Home Environment Lives in a newer 1st floor apartment in the [facility] Smoke-Free Home is smoke-free Pets None 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 needed shortness of breath, cough, wheeze or 20 min prior to activity/pl aying trumpet Ventolin HFA 10/28/ Active Aerosol 108(90Base 2units 2 every 4 2016 ) mcg/Act hours as George-Jam needed for smita, cough, [employer] COORDINATOR-C wheeze or shortness of breath Irbesartan / Active Tablets 150mg 1 PO Q Day Unknown 0000 Atorvastatin / Active Tablets 40mg 1 Tab PO Unknown Calcium 0000 QHS Omeprazole / Active Capsules 20mg 1 Tab PO Q Unknown 0000 DR Day Metformin HCL / Active Tablets ER 500mg 2 Tabs PO Unknown ER 0000 24HR With Dinner Vitamin D High / Active Capsules 1000Unit 4 PO Qday Unknown Potency 0000 Bystolic / Active Tablets 5mg 1 tab Unknown 0000 daily. Cinnamon / Active Capsules 500mg 2 caps Unknown 0000 daily. Fish Oil / Active Capsules 1000mg 1 cap Unknown 0000 daily. Breo Ellipta / Active Aerosol 200-25mcg/ 1units 1 puff J45.40 Sarah 0000 Inh inhaled McNairn, once daily M.D. Vitamin C / Active Tablets 1200mg daily Unknown 0000 Spiriva / Active Capsules 18mcg as needed. Unknown Handihaler 0000 Melatonin ER / Active Tablets ER 5mg 1 tab at Unknown 0000 night. Sweet 3 / Active Capsules 1000mg Unknown 0000 Medications Administered in Office Medication Date Status Form Strength Qnty SIG Indications Ordering Provider Injection Administered Injection Allergy 018 Injection Injection Administered Injection Allergy 018 Injection Injection Administered Injection Allergy 018 Injection Injection Administered Injection Allergy 017 Injection Injection Administered Injection Allergy 017 Injection Injection Administered Injection Allergy 017 Injection Injection Administered Injection Sarah Maty Ovalle M.D. Injection Administered Injection Allergy 017 Injection Injection Administered Injection Sarah Maty Ovalle M.D. Injection Administered Injection Allergy 017 Injection Injection Administered Injection Allergy 017 Injection Injection Administered Injection Allergy 017 Injection Injection Administered Injection Allergy 017 Injection Injection Administered Injection Allergy 017 Injection Injection Administered Injection Sarah Maty Ovalle M.D. Injection Administered Injection Allergy 017 Injection Injection Administered Injection Sarah Maty Ovalle M.D. Injection Administered Injection Allergy 017 Injection Injection Administered Injection Allergy 017 Injection Injection Administered Injection Sarah Maty Ovalle M.D. Injection Administered Injection Allergy 017 Injection Injection Administered Injection Allergy 017 Injection Injection Administered Injection Sarah Maty Ovalle M.D. Injection Administered Injection Allergy 017 Injection Injection Administered Injection Allergy 017 Injection Injection Administered Injection Allergy 017 Injection Injection Administered Injection Allergy 017 Injection Injection Administered Injection Allergy 017 Injection Injection Administered Injection Allergy 017 Injection Injection Administered Injection Allergy 016 Injection Injection Administered Injection Allergy 016 Injection Injection Administered Injection Allergy 016 Injection Injection Administered Injection Allergy 016 Injection Injection Administered Injection Allergy 016 Injection Injection Administered Injection Allergy 016 Injection Injection Administered Injection Allergy 016 Injection Injection Administered Injection Allergy 016 Injection Injection Administered Injection Allergy 016 Injection Injection Administered Injection Allergy 016 Injection Injection Administered Injection Allergy 016 Injection Injection Administered Injection Allergy 016 Injection Injection Administered Injection Allergy 016 Injection Injection Administered Injection Allergy 016 Injection Injection Administered Injection Allergy 016 Injection Injection Administered Injection Allergy 016 Injection Injection Administered Injection Allergy 016 Injection Injection Administered Injection Allergy 016 Injection Injection Administered Injection Allergy 016 Injection Injection Administered Injection Allergy 016 Injection Injection Administered Injection Allergy 016 Injection Injection Administered Injection Allergy 016 Injection Injection Administered Injection Allergy 016 Injection Injection Administered Injection Allergy 016 Injection Injection Administered Injection Allergy 016 Injection Injection Administered Injection Allergy 016 Injection Injection Administered Injection Allergy 016 Injection Injection Administered Injection Allergy 016 Injection Injection Administered Injection Allergy 016 Injection Injection Administered Injection Allergy 015 Injection Injection Administered Injection Allergy 015 Injection Injection Administered Injection Allergy 015 Injection Injection Administered Injection Allergy 015 Injection Injection Administered Injection Allergy 015 Injection Injection Administered Injection Allergy 015 Injection Injection Administered Injection Allergy 015 Injection Injection Administered Injection Allergy 015 Injection Injection Administered Injection Allergy 015 Injection Injection Administered Injection Allergy 015 Injection Injection Administered Injection Allergy 015 Injection Injection Administered Injection Allergy 015 Injection Injection Administered Injection Allergy 015 Injection Injection Administered Injection Allergy 015 Injection Injection Administered Injection Allergy 015 Injection Injection Administered Injection Allergy 015 Injection Injection Administered Injection Allergy 015 Injection Injection Administered Injection Allergy 015 Injection Injection Administered Injection Allergy 015 Injection Injection Administered Injection Allergy 015 Injection Injection Administered Injection Allergy 015 Injection Injection Administered Injection Allergy 015 Injection Injection Administered Injection Allergy 015 Injection Injection Administered Injection Allergy 015 Injection Injection Administered Injection Allergy 015 Injection Injection Administered Injection Allergy 015 Injection Injection Administered Injection Allergy 015 Injection Celestone/Ra Administered Injection Sarah isone 015 [facility], [id number] 1 M.D. cc Injection Administered Injection Allergy 015 Injection Injection Administered Injection Allergy 015 Injection Injection Administered Injection Allergy 015 Injection Injection Administered Injection Allergy 015 Injection Injection Administered Injection Allergy 015 Injection Injection Administered Injection Allergy 015 Injection Injection Administered Injection Allergy 015 Injection Injection Administered Injection Allergy 014 Injection Injection Administered Injection Allergy 014 Injection Injection Administered Injection Allergy 014 Injection Injection Administered Injection Allergy 014 Injection Injection Administered Injection Allergy 014 Injection Injection Administered Injection Allergy 014 Injection Injection Administered Injection Allergy 014 Injection Injection Administered Injection Allergy 014 Injection Injection Administered Injection Allergy 014 Injection Injection Administered Injection Allergy 014 Injection Injection Administered Injection Allergy 014 Injection Injection Administered Injection Allergy 014 Injection Injection Administered Injection Allergy 014 Injection Injection Administered Injection Allergy 014 Injection Injection Administered Injection Allergy 014 Injection Injection Administered Injection Allergy 014 Injection Injection Administered Injection Allergy 014 Injection Injection Administered Injection Allergy 014 Injection Injection Administered Injection Allergy 014 Injection Injection Administered Injection Allergy 014 Injection Injection Administered Injection Allergy 014 Injection Injection Administered Injection Allergy 014 Injection Injection Administered Injection Allergy 014 Injection Injection Administered Injection Allergy 014 Injection Injection Administered Injection Allergy 014 Injection Injection Administered Injection Allergy 014 Injection Injection Administered Injection Allergy 014 Injection Injection Administered Injection Allergy 014 Injection Injection Administered Injection Allergy 014 Injection Injection Administered Injection Allergy 014 Injection Injection Administered Injection Sarah Jacqui Ovalle M.D. Injection Administered Injection Allergy 014 Injection Injection Administered Injection Allergy 014 Injection Injection Administered Injection Allergy 013 Injection Injection Administered Injection Allergy 013 Injection Injection Administered Injection Allergy 013 Injection Injection Administered Injection Allergy 013 Injection Injection Administered Injection Allergy 013 Injection Injection Administered Injection Allergy 013 Injection Injection Administered Injection Allergy 013 Injection Injection Administered Injection Allergy 013 Injection Injection Administered Injection Allergy 013 Injection Injection Administered Injection Allergy 013 Injection Injection Administered Injection Allergy 013 Injection Injection Administered Injection Allergy 013 Injection Injection Administered Injection Allergy 013 Injection Injection Administered Injection Allergy 013 Injection Injection Administered Injection Allergy 013 Injection Injection Administered Injection Allergy 013 Injection Injection Administered Injection Allergy 013 Injection Injection Administered Injection Allergy 013 Injection Injection Administered Injection Allergy 013 Injection Injection Administered Injection Allergy 013 Injection Injection Administered Injection Allergy 013 Injection Injection Administered Injection Allergy 013 Injection Injection Administered Injection Allergy 013 Injection Injection Administered Injection Allergy 013 Injection Injection Administered Injection Allergy 013 Injection Injection Administered Injection Allergy 013 Injection Injection Administered Injection Allergy 013 Injection Injection Administered Injection Allergy 013 Injection Injection Administered Injection Allergy 013 Injection Injection Administered Injection Allergy 013 Injection Injection Administered Injection Allergy 013 Injection Injection Administered Injection Allergy 013 Injection Injection Administered Injection Allergy 013 Injection Injection Administered Injection Sarah Ovalle M.D. Injection Administered Injection Sarah Ovalle M.D. Injection Administered Injection Sarah Ovalle M.D. Injection Administered Injection Sarah Ovalle M.D. Immunizations CPT Code Status Date Vaccine Lot # [id number] Given 03/12/2015 Influenza Vaccine 69587 Given 04/21/2014 Influenza Vaccine 38844 Given 09/11/2011 Pneumococcal Vaccine 39471 Given Unknown Pneumococcal Vaccine 25803 Given Unknown Influenza Vaccine 89316 Given Unknown Influenza Vaccine 41255 Given Unknown Influenza Vaccine Vital Signs Date Vital Result Comment 08/23/2017 Height 67.5 inches 5'7.50" Weight 165.00 lb Weight in kg's 74.844 Respiratory Rate 22 /min Heart Rate 86 /min O2 % BldC Oximetry 96 % BP Systolic 142 mmHg BP Diastolic 74 mmHg Asthma Control Test 16 BMI (Body Mass Index) 25.5 kg/m2 04/13/2017 Height 67.5 inches 5'7.50" Weight 165.00 lb Weight in kg's 74.844 Respiratory Rate 20 /min Heart Rate 76 /min O2 % BldC Oximetry 97 % BP Systolic 136 mmHg BP Diastolic 63 mmHg BMI (Body Mass Index) 25.5 kg/m2 10/05/2016 Height 67.5 inches 5'7.50" Weight 166.00 lb Weight in kg's 75.298 Respiratory Rate 20 /min Heart Rate 69 /min O2 % BldC Oximetry 97 % BP Systolic 146 mmHg BP Diastolic 72 mmHg Asthma Control Test 21 BMI (Body Mass Index) 25.6 kg/m2 06/29/2016 Height 67.5 inches 5'7.50" Weight 166.00 lb Weight in kg's 75.298 Respiratory Rate 16 /min Heart Rate 90 /min O2 % BldC Oximetry 98 % BP Systolic 141 mmHg BP Diastolic 73 mmHg Asthma Control Test 23 BMI (Body Mass Index) 25.6 kg/m2 05/13/2016 Height 67.5 inches 5'7.50" Weight 173.00 lb Weight in kg's 78.473 Respiratory Rate 16 /min Heart Rate 84 /min O2 % BldC Oximetry 98 % BP Systolic 135 mmHg BP Diastolic 65 mmHg Asthma Control Test 20 BMI (Body Mass Index) 26.7 kg/m2 04/20/2016 Height 67.5 inches 5'7.50" Weight 170.00 lb Weight in kg's 77.112 Respiratory Rate 20 /min Heart Rate 87 /min O2 % BldC Oximetry 97 % BP Systolic 141 mmHg BP Diastolic 79 mmHg Asthma Control Test 15 BMI (Body Mass Index) 26.2 kg/m2 03/10/2016 Height 67.5 inches 5'7.50" Weight 169.00 lb Weight in kg's 76.658 Respiratory Rate 18 /min Heart Rate 86 /min O2 % BldC Oximetry 96 % BP Systolic 138 mmHg BP Diastolic 68 mmHg Asthma Control Test 21 BMI (Body Mass Index) 26.1 kg/m2 01/21/2016 Height 67.5 inches 5'7.50" Weight 168.00 lb Weight in kg's 76.205 Respiratory Rate 18 /min Heart Rate 83 /min Body Temperature 98.5 F O2 % BldC Oximetry 98 % BP Systolic 140 mmHg BP Diastolic 67 mmHg Asthma Control Test 21 BMI (Body Mass Index) 25.9 kg/m2 11/25/2015 Height 67.5 inches 5'7.50" Weight 174.00 lb Weight in kg's 78.926 Respiratory Rate 16 /min Heart Rate 80 /min O2 % BldC Oximetry 98 % BP Systolic 149 mmHg BP Diastolic 70 mmHg BMI (Body Mass Index) 26.8 kg/m2 09/25/2015 Height 67.5 inches 5'7.50" Weight 177.00 lb Weight in kg's 80.287 Respiratory Rate 20 /min Heart Rate 84 /min O2 % BldC Oximetry 98 % BP Systolic 156 mmHg BP Diastolic 79 mmHg Asthma Control Test 23 BMI (Body Mass Index) 27.3 kg/m2 06/26/2015 Height 67 inches 5'7" Weight 177.00 lb Weight in kg's 80.287 Respiratory Rate 16 /min Heart Rate 76 /min O2 % BldC Oximetry 97 % BP Systolic 153 mmHg BP Diastolic 79 mmHg Asthma Control Test 23 BMI (Body Mass Index) 27.7 kg/m2 12/17/2014 Height 67 inches 5'7" Weight 176.00 lb Weight in kg's 79.834 Respiratory Rate 20 /min Heart Rate 74 /min O2 % BldC Oximetry 96 % BP Systolic 159 mmHg BP Diastolic 79 mmHg Asthma Control Test 22 BMI (Body Mass Index) 27.6 kg/m2 10/01/2014 Height 67 inches 5'7" Weight 180.00 lb Weight in kg's 81.648 Respiratory Rate 16 /min Heart Rate 75 /min O2 % BldC Oximetry 96 % BP Systolic 158 mmHg BP Diastolic 78 mmHg Asthma Control Test 23 BMI (Body Mass Index) 28.2 kg/m2 05/14/2014 Height 67 inches 5'7" Weight 173.00 lb Weight in kg's 78.473 Respiratory Rate 16 /min Heart Rate 72 /min O2 % BldC Oximetry 98 % BP Systolic 140 mmHg BP Diastolic 70 mmHg Asthma Control Test 22 BMI (Body Mass Index) 27.1 kg/m2 02/13/2013 Height 67 inches 5'7" Weight 173.00 lb Weight in kg's 78.473 Heart Rate 85 /min O2 % BldC Oximetry 97 % BP Systolic 142 mmHg BP Diastolic 70 mmHg BMI (Body Mass Index) 27.1 kg/m2 01/30/2013 Height 68 inches 5'8" Weight 171.00 lb Weight in kg's 77.566 Respiratory Rate 18 /min Heart Rate 78 /min O2 % BldC Oximetry 97 % BP Systolic 138 mmHg BP Diastolic 82 mmHg BMI (Body Mass Index) 26.0 kg/m2 01/23/2013 Height 68 inches 5'8" Weight 171.00 lb Weight in kg's 77.566 Respiratory Rate 18 /min Heart Rate 88 /min O2 % BldC Oximetry 98 % BP Systolic 136 mmHg BP Diastolic 80 mmHg BMI (Body Mass Index) 26.0 kg/m2 07/06/2012 Height 68 inches 5'8" Weight 180.00 lb Weight in kg's 81.648 Respiratory Rate 18 /min Heart Rate 85 /min O2 % BldC Oximetry 97 % BP Systolic 118 mmHg BP Diastolic 80 mmHg BMI (Body Mass Index) 27.4 kg/m2 06/13/2012 Height 66 inches 5'6" Weight 183.00 lb Weight in kg's 83.009 Respiratory Rate 16 /min Heart Rate 84 /min O2 % BldC Oximetry 97 % BP Systolic 135 mmHg BP Diastolic 80 mmHg BMI (Body Mass Index) 29.5 kg/m2 Results Description No Information Procedures Date CPT Code Description Status 08/23/2017 07875 Pulmonary Function Test Completed 08/16/2017 21893 Injection Completed 07/14/2017 24400 Injection Completed 06/14/2017 39031 Injection Completed 05/17/2017 89696 Injection Completed 04/13/2017 59013 Injection Completed 04/13/2017 61036 Pre PFT Completed 03/24/2017 68528 Injection Completed 03/10/2017 08645 Extract 1-10 Completed 03/10/2017 63172 Injection Completed 03/10/2017 12085 Injection Completed 02/24/2017 73920 Injection Completed 02/24/2017 66653 Injection Completed 02/10/2017 18587 Injection Completed 01/27/2017 03680 Injection Completed 01/06/2017 22333 Injection Completed 12/23/2016 07762 Injection Completed 12/09/2016 69494 Injection Completed 12/09/2016 18263 Injection Completed 11/25/2016 66108 Injection Completed 11/25/2016 96035 Injection Completed 11/16/2016 54017 Injection Completed 11/09/2016 25383 Injection Completed 11/09/2016 54200 Injection Completed 11/02/2016 85330 Injection Completed 11/02/2016 26810 Extract 1-10 Completed 10/28/2016 96186 Injection Completed 10/28/2016 37508 Injection Completed 10/19/2016 46699 Injection Completed 10/05/2016 26361 Injection Completed 10/05/2016 28139 Pre PFT Completed 09/21/2016 59677 Injection Completed 08/05/2016 41736 Injection Completed 06/29/2016 41374 Injection Completed 06/29/2016 64177 Pre PFT Completed 06/08/2016 94562 Injection Completed 05/25/2016 72942 Injection Completed 05/13/2016 05214 Injection Completed 05/04/2016 11873 Injection Completed 04/20/2016 68707 Ippb Completed 04/20/2016 76830 Pre PFT Completed 03/23/2016 59249 Injection Completed 03/10/2016 66240 Injection Completed 03/10/2016 59313 Pre PFT Completed 03/02/2016 02152 Injection Completed 02/29/2016 09070 Extract 1-10 Completed 02/24/2016 47342 Injection Completed 02/17/2016 72206 Injection Completed 02/10/2016 78060 Injection Completed 01/21/2016 15035 Pre PFT Completed 01/15/2016 88041 Injection Completed 01/08/2016 24357 Injection Completed 01/01/2016 83042 Injection Completed 12/23/2015 34797 Injection Completed 12/16/2015 99342 Injection Completed 12/09/2015 56484 Injection Completed 12/02/2015 61642 Injection Completed 11/25/2015 39467 Injection Completed 11/12/2015 46387 Extract 1-10 Completed 11/11/2015 86362 Injection Completed 11/06/2015 56513 Injection Completed 10/23/2015 30081 Injection Completed 10/09/2015 99265 Injection Completed 09/25/2015 63190 Injection Completed 09/25/2015 98395 Pre PFT Completed 09/16/2015 95309 Injection Completed 09/02/2015 58967 Injection Completed 08/05/2015 07546 Injection Completed 07/22/2015 49243 Injection Completed 07/08/2015 50898 Injection Completed 06/26/2015 60044 Pre PFT Completed 06/22/2015 39422 Extract 1-10 Completed 06/17/2015 33345 Injection Completed 06/03/2015 36563 Injection Completed 05/20/2015 77860 Injection Completed 05/06/2015 98563 Injection Completed 04/08/2015 59437 Injection Completed 04/01/2015 78645 Injection Completed 03/25/2015 14274 Injection Completed 03/18/2015 77215 Injection Completed 03/11/2015 37023 Injection Completed 03/04/2015 64504 Extract 1-10 Completed 03/04/2015 98346 Injection Completed 02/27/2015 49834 Injection Completed 02/18/2015 24571 Injection Completed 02/11/2015 93490 Injection Completed 02/06/2015 71050 Injection Completed 01/28/2015 14212 Injection Completed 01/21/2015 86252 Injection Completed 01/14/2015 62514 Injection Completed 01/07/2015 48043 Injection Completed 12/31/2014 71965 Injection Completed 12/24/2014 49478 Injection Completed 12/17/2014 01861 Extract 1-10 Completed 12/17/2014 45891 Injection Completed 12/03/2014 23064 Injection Completed 11/26/2014 07499 Injection Completed 11/19/2014 87075 Injection Completed 11/12/2014 37826 Injection Completed 11/05/2014 06357 Injection Completed 10/29/2014 10959 Injection Completed 10/22/2014 74614 Injection Completed 10/01/2014 98359 Pulmonary Function Test Completed 09/24/2014 89108 Injection Completed 09/05/2014 07019 Injection Completed 08/20/2014 18756 Injection Completed 08/12/2014 47945 Extract 1-10 Completed 08/08/2014 16700 Injection Completed 07/23/2014 09218 Injection Completed 07/09/2014 04413 Injection Completed 06/27/2014 07356 Injection Completed 06/11/2014 27739 Injection Completed 05/30/2014 12690 Injection Completed 05/14/2014 25299 Injection Completed 05/14/2014 35627 Pre PFT Completed 04/30/2014 19226 Injection Completed 04/16/2014 63261 Injection Completed 04/02/2014 40339 Injection Completed 03/26/2014 59162 Injection Completed 03/14/2014 90372 Extract 1-10 Completed 03/12/2014 24223 Injection Completed 03/05/2014 49223 Injection Completed 02/26/2014 33048 Injection Completed 02/19/2014 84352 Injection Completed 02/12/2014 93219 Injection Completed 01/29/2014 16827 Injection Completed 01/24/2014 20375 Injection Completed 01/15/2014 90462 Injection Completed 01/01/2014 74948 Injection Completed 12/27/2013 48653 Extract 1-10 Completed 12/27/2013 20812 Injection Completed 12/18/2013 28526 Injection Completed 12/11/2013 78864 Injection Completed 11/27/2013 82193 Injection Completed 11/20/2013 61364 Injection Completed 11/13/2013 00665 Injection Completed 11/06/2013 66901 Injection Completed 10/30/2013 06113 Injection Completed 10/23/2013 25513 Injection Completed 10/09/2013 36034 Injection Completed 09/25/2013 99330 Injection Completed 09/11/2013 82486 Injection Completed 08/28/2013 31482 Injection Completed 08/16/2013 76077 Injection Completed 08/02/2013 58388 Extract 1-10 Completed 08/02/2013 92508 Injection Completed 07/03/2013 44621 Injection Completed 06/19/2013 02162 Injection Completed 06/07/2013 73488 Injection Completed 05/22/2013 34414 Injection Completed 05/08/2013 63108 Injection Completed 04/24/2013 45525 Injection Completed 04/10/2013 53488 Injection Completed 03/27/2013 76147 Injection Completed 03/13/2013 72922 Injection Completed 02/27/2013 65974 Injection Completed 02/13/2013 72027 Injection Completed 02/13/2013 26638 Oxygen Level - Pulse Oximiter Completed 01/30/2013 93300 Pre PFT Completed 01/30/2013 76006 Spirometry Review & Interpret Completed 01/30/2013 76704 Oxygen Level - Pulse Oximiter Completed 01/30/2013 30410 Injection Completed 01/23/2013 25958 Injection Completed 01/23/2013 51705 Oxygen Level - Pulse Oximiter Completed 01/16/2013 87807 Injection Completed 01/09/2013 23534 Injection Completed 01/02/2013 73537 Injection Completed 12/26/2012 41103 Injection Completed 12/19/2012 37467 Injection Completed 12/12/2012 36422 Injection Completed 12/05/2012 21095 Injection Completed 11/28/2012 35145 Injection Completed 11/21/2012 75804 Injection Completed 11/14/2012 91436 Injection Completed 11/07/2012 69948 Injection Completed 10/31/2012 81276 Injection Completed 10/24/2012 66278 Injection Completed 10/17/2012 22382 Injection Completed 10/10/2012 85227 Injection Completed 10/03/2012 76419 Injection Completed 09/26/2012 91090 Injection Completed 09/19/2012 45034 Injection Completed 09/12/2012 29129 Injection Completed 09/05/2012 58681 Injection Completed 08/29/2012 82335 Injection Completed 08/22/2012 71675 Injection Completed 08/15/2012 36249 Injection Completed 08/08/2012 51016 Injection Completed 08/01/2012 21270 Injection Completed 07/25/2012 87421 Injection Completed 07/23/2012 61265 Extract 1-10 Completed 07/06/2012 06637 Skin Tests Id Completed 07/06/2012 92134 Oxygen Level - Pulse Oximiter Completed 06/27/2012 10918 Skin Test Scratch # Of Units ____ Completed 06/13/2012 67538 Oxygen Level - Pulse Oximiter Completed 06/13/2012 36514 Pulmonary Function Test Completed Encounters Type Date Location Provider CPT E/M Dx Office Visit 04/13/2017 10:00a ADRIENNE Fermin 94622 J30.89 J30.81 J30.2 J30.1 J45.40 Office Visit 10/05/2016 9:20a More Ovalle M.D. 72909 J45.40 J30.1 J30.2 J30.81 Z68.25 Office Visit 06/29/2016 9:20a Otto MedranoD. 76907 J45.40 Z68.26 J30.1 J30.2 Z68.25 Office Visit 05/13/2016 9:40a More Ovalle M.D. 23143 J45.40 R05 J30.89 J30.81 Z68.26 Office Visit 04/20/2016 9:00a More Ovalle M.D. 04157 R05 J45.40 J30.1 J30.2 J30.81 Z68.26 Office Visit 03/10/2016 9:00a More Ovalle M.D. 09918 J45.40 J45.41 J30.89 J30.2 J30.81 Z68.26 Office Visit 01/21/2016 11:40a More Ovalle M.D. 94265 J45.41 J30.1 J30.2 J30.81 Z68.25 Office Visit 11/25/2015 11:00a More Man M.D. 48562 J30.89 J30.81 J30.2 J30.1 J45.40 Z68.26 Office Visit 09/25/2015 11:00a More Man M.D. 96677 J30.89 J30.81 J30.2 J30.1 J45.40 Z68.27 Office Visit 06/26/2015 8:40a More Man M.D. 81925 J30.1 J30.81 J30.2 J45.40 Z68.27 Office Visit 12/17/2014 11:20a More Ovalle M.D. 51756 493.00 477.0 477.8 V85.23 Office Visit 10/01/2014 8:40a More Ovalle M.D. 44778 493.00 477.8 477.0 Office Visit 05/14/2014 10:40a More Ovalle M.D. 53839 477.0 477.8 493.00 Office Visit 02/13/2013 11:00a More Carrillo RPA-C 10136 477.8 477.0 493.00 Office Visit 01/23/2013 11:00a [place] Chhaya Sweeney SILVA Carrillo-C 86769 477.8 477.0 493.00 Office Visit 07/18/2012 11:20a [place] Sarah Ovalle M.D. 66501 786.2 477.0 477.8 Office Visit 06/13/2012 2:20p [place] Sarah Ovalle M.D. 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 PRE-PFT performed, reviewed, appears decreased from previous IBBP Xopenex 1.25 given and 'POST' performed with improved air entry but no change on the spirometry Add prednisone 5 mg tabs 8 daily for 5 days (that is 40 mg per day) Continue the other inhalers, BREO, 1 puff once daily SPIRIVA, 1 puffs once daily Ventolin as needed Appt with Dr Ross's office Monday 09/04
[2017-09-07 20:11] VITALS: BP 137/67
[2017-09-07] MEDS ORDERED: Erythromycin OPTH OINT* APPLIC OINT LEFT EYE ONE (20:50)
--- NOTE | 2017-09-07 20:53 | UC ---
Eye Complaint HPI - History of Current Complaint Chief Complaint: UCEye Stated Complaint: EYE IRRITATION Time Seen by Provider: 09/07/17 20:36 Pain Intensity: 2 - Allergies/Home Medications Allergies/Adverse Reactions: Allergies Allergy/AdvReac Type Severity Reaction Status Date / Time No Known Allergies Allergy Verified 09/07/17 20:11 Home Medications: Home Medications Ubidecarenone [Coq-10] 09/07/17 [History] PMH/Surg Hx/FS Hx/Imm Hx - Surgical History Surgical History: Yes Surgery Procedure, Year, and Place: T&A 17 YRS OF AGE- [facility] [place]. APPENDECTOMY 2006- [place], [place]. RIGHT INGUINAL HERNIA REPAIR - [facility]. VASECTOMY - DR JUAREZ'S OFFICE. CATARACTS. TOOTH EXTRACTION. EYE LID SURGERY - Family History Known Family History: Positive: Hypertension, Diabetes - Social History Alcohol Use: Daily Alcohol Amount: 1 BEER OR 1 GLASS WINE DAILY Substance Use Type: None Smoking Status (MU): Former Smoker Type: Cigarettes Amount Used/How Often: 1/4-1/2 PPD FOR 20 YRS Length of Time of Smoking/Using Tobacco: 10 Have You Smoked in the Last Year: No When Did the Patient Quit Smoking/Using Tobacco: 1970 - Immunization History Most Recent Influenza Vaccination: 2015 Most Recent Tetanus Shot: remote Most Recent Pneumonia Vaccination: current Physical Exam Vital Signs: Initial Vital Signs Temp 98.3 F 09/07/17 20:06 Pulse 81 09/07/17 20:06 Resp 16 09/07/17 20:06 BP 137/67 09/07/17 20:06 Pulse Ox 98 09/07/17 20:06 Eye Complaint Course/Dx - Course Course Of Treatment: warm compress, eye ointment three times a day follow with pcp - Differential Dx/Diagnosis Provider Diagnoses: sty os Discharge - Sign-Out/Discharge Documenting (check all that apply): Discharge - Discharge Plan Condition: Stable Disposition: HOME Patient Education Materials: Stye (ED), Warm Compress or Soak (ED) Referrals: Chuck Jennings MD [Primary Care Provider] - If Needed - Billing Disposition and Condition Condition: STABLE Disposition: HOME
== END 2017-09-07 21:07 | disposition home or self-care (01) ==
LOC: UCEAST 19:46
DX: H00.026 Hordeolum internum left eye, unspecified eyelid (principal); Z87.891 Personal history of nicotine dependence
CPT/HCPCS: 99212; A9270-GY; G0463

== ENCOUNTER 2018-08-18 15:15 | Emergency (ER) | payer MEDICARE, OTHER ==
[2018-08-18 15:25] VITALS: BP 120/75
--- NOTE | 2018-08-18 15:57 | UC ---
Respiratory Complaint HPI - HPI Summary HPI Summary: 88-year-old male comes in with chief complaint of a cough and shortness of breath for 2 weeks. Patient reports that he saw his primary care doctor 1 week ago. He reports having been on antibiotic for 7 days once a day. Patient has to sit up at night to help avoid the cough. Patient reports that he has had congestive heart failure in the past. No edema no chest pain. Has a history of atrial fibrillation, he has not felt any palpitations or fast heart rate. He does have COPD. He has used his inhalers and he feels that helps with the shortness of breath. - History of Current Complaint Chief Complaint: UCRespiratory Stated Complaint: COUGH Time Seen by Provider: 08/18/18 15:18 Pain Intensity: 16 - Allergies/Home Medications Allergies/Adverse Reactions: Allergies Allergy/AdvReac Type Severity Reaction Status Date / Time No Known Allergies Allergy Verified 08/18/18 15:25 PMH/Surg Hx/FS Hx/Imm Hx Previously Healthy: Yes Cardiovascular History: Cardiac Disease, Congestive Heart Failure, Atrial Fibrillation Respiratory History: COPD - Surgical History Surgical History: Yes Surgery Procedure, Year, and Place: T&A 17 YRS OF AGE- [facility]. APPENDECTOMY 2006- [place], [place]. RIGHT INGUINAL HERNIA REPAIR - [facility]. VASECTOMY - DR JUAREZ'S OFFICE. CATARACTS. TOOTH EXTRACTION. EYE LID SURGERY-NO METAL - Family History Known Family History: Positive: Hypertension, Diabetes - Social History Alcohol Use: Daily Alcohol Amount: 1 BEER OR 1 GLASS WINE DAILY Substance Use Type: None Smoking Status (MU): Former Smoker Type: Cigarettes Amount Used/How Often: 1/4-1/2 PPD FOR 20 YRS Length of Time of Smoking/Using Tobacco: 10 Have You Smoked in the Last Year: No When Did the Patient Quit Smoking/Using Tobacco: 1970 - Immunization History Most Recent Influenza Vaccination: 2015 Most Recent Tetanus Shot: remote Most Recent Pneumonia Vaccination: current Review of Systems All Other Systems Reviewed And Are Negative: Yes Constitutional: Positive: Negative Skin: Positive: Negative Eyes: Positive: Negative ENT: Negative: Sore Throat Respiratory: Positive: Shortness Of Breath, Cough Cardiovascular: Positive: Negative. Negative: Palpitations, Chest Pain Motor: Positive: Negative Neurovascular: Positive: Negative Musculoskeletal: Positive: Negative. Negative: Calf Tenderness, Edema Neurological: Positive: Negative Psychological: Positive: Negative Is Patient Immunocompromised?: No Physical Exam Triage Information Reviewed: Yes Appearance: No Pain Distress, Well-Nourished, Ill-Appearing - mild Vital Signs: Initial Vital Signs Temp 98.4 F 08/18/18 15:19 Pulse 98 08/18/18 15:19 Resp 16 08/18/18 15:19 BP 120/75 08/18/18 15:19 Pulse Ox 96 08/18/18 15:19 Vital Signs Reviewed: Yes Eye Exam: Normal Eyes: Positive: Conjunctiva Clear ENT: Positive: Pharynx normal, Other - b/l cerumen impaction Neck exam: Normal Neck: Positive: Supple Respiratory: Positive: No respiratory distress, No accessory muscle use, Rhonchi Cardiovascular: Positive: RRR Musculoskeletal Exam: Normal Musculoskeletal: Positive: Strength Intact, ROM Intact, No Edema, Other: - no calf tenderness Neurological Exam: Normal Neurological: Positive: Alert, Muscle Tone Normal Psychological Exam: Normal Psychological: Positive: Age Appropriate Behavior Skin Exam: Normal Respiratory Course/Dx - Course Course Of Treatment: Ears were irrigated by nursing with removal of cerumen. We discussed the chest x-ray results. At the left base there was question of scarring infection or atelectasis. This was seen on past chest x-ray. It appears that the patient's been treated with Ag azithromycin which he finished about 3 days ago. He has no pedal edema no calf tenderness. On palpation his heart rate is regular. Patient reports when he is in rapid atrial fibrillation he can tell. No CHF seen on chest x-ray. He does have COPD. Plan at this time is to treat with Levaquin for possible pneumonia with failed treatment of a azithromycin. We will also treat with 5 days of prednisone. Patient was not sure if he had an albuterol inhaler at home so I prescribed that also. He'll follow-up his primary care physician. We discussed that if he develops chest pain shortness of breath or she felt worse or not improved he needed to go the emergency department for further evaluation. - Differential Dx/Diagnosis Provider Diagnosis: Impacted cerumen of both ears, COPD (chronic obstructive pulmonary disease), Pneumonia Discharge - Sign-Out/Discharge Documenting (check all that apply): Patient Departure All imaging exams completed and their final reports reviewed: Yes - Discharge Plan Condition: Stable Disposition: HOME Prescriptions: Albuterol HFA INHALER* [Ventolin HFA Inhaler*] 2 puff INH Q4H PRN #1 mdi PRN Reason: Wheezing Levofloxacin TAB* [Levaquin TAB*] 750 mg PO DAILY #5 tab predniSONE TAB* [Deltasone 20 MG TAB*] 40 mg PO DAILY #10 tab Patient Education Materials: Cerumen Impaction (ED), COPD (Chronic Obstructive Pulmonary Disease) (ED), Community Acquired Pneumonia (ED) Referrals: Chuck Jennings MD [Primary Care Provider] - Additional Instructions: FOLLOW UP WITH YOUR DOCTOR. USE THE RESCUE INHALER, ALBUTEROL, 2 PUFFS EVERY 4 HOURS NEEDED. GO TO THE EMERGENCY DEPARTMENT FOR ANY WORSENING OF YOUR CONDITION; FEVER, SHORTNESS OF BREATH, CHEST PAIN, YOU FEEL ILL OR QUESTIONS OR CONCERNS. - Billing Disposition and Condition Condition: STABLE Disposition: Home
== END 2018-08-18 17:06 | disposition home or self-care (01) ==
LOC: UCEAST 15:15
DX: H61.23 Impacted cerumen, bilateral (principal); J44.9 Chronic obstructive pulmonary disease, unspecified; J18.9 Pneumonia, unspecified organism; I50.9 Heart failure, unspecified; I48.91 Unspecified atrial fibrillation; Z79.01 Long term (current) use of anticoagulants; Z87.891 Personal history of nicotine dependence
CPT/HCPCS: 71046; 99213; G0463

== ENCOUNTER 2018-08-21 09:44 | Emergency (ER) | payer MEDICARE, OTHER ==
[2018-08-21 10:24] VITALS: BP 120/58
--- NOTE | 2018-08-21 10:37 | UC ---
General HPI - HPI Summary HPI Summary: 88 yo gentleman c/o cough x approx one week. Seen in [facility] 08/18/18, had cxr, ears flushed. Started levaquin, pred taper. Tessalon perles, neb tx. [place] great one night, but then last night coughed a lot. - History of Current Complaint Chief Complaint: UCRespiratory Stated Complaint: COUGH Time Seen by Provider: 08/21/18 10:32 Hx Obtained From: Patient Pain Intensity: 2 - Allergy/Home Medications Allergies/Adverse Reactions: Allergies Allergy/AdvReac Type Severity Reaction Status Date / Time No Known Allergies Allergy Verified 08/21/18 10:27 PMH/Surg Hx/FS Hx/Imm Hx - Surgical History Surgical History: Yes Surgery Procedure, Year, and Place: T&A 17 YRS OF AGE- [facility]. APPENDECTOMY 2006- [place], [place]. RIGHT INGUINAL HERNIA REPAIR - [facility]. VASECTOMY - DR JUAREZ'S OFFICE. CATARACTS. TOOTH EXTRACTION. EYE LID SURGERY-NO METAL - Family History Known Family History: Positive: Hypertension, Diabetes - Social History Alcohol Use: Daily Alcohol Amount: 1 BEER OR 1 GLASS WINE DAILY Substance Use Type: None Smoking Status (MU): Former Smoker Type: Cigarettes Amount Used/How Often: 1/4-1/2 PPD FOR 20 YRS Length of Time of Smoking/Using Tobacco: 10 Have You Smoked in the Last Year: No When Did the Patient Quit Smoking/Using Tobacco: 1971 Household Exposure Type: Cigarettes - Immunization History Most Recent Influenza Vaccination: 2015 Most Recent Tetanus Shot: remote Most Recent Pneumonia Vaccination: current Physical Exam Triage Information Reviewed: Yes Appearance: Well-Appearing, Well-Nourished Vital Signs: Initial Vital Signs Temp 97.7 F 08/21/18 10:19 Pulse 92 08/21/18 10:19 Resp 18 08/21/18 10:19 BP 120/58 08/21/18 10:19 Pulse Ox 99 08/21/18 10:19 Vital Signs Reviewed: Yes Eye Exam: Normal Course/Dx - Course Course Of Treatment: Pt has been taking tessalon perles at home. Also has nebulizer with medications at home, has not been using it much, will start. Taking levaquin, prednisone taper. CXR from 08/18/18 reviewed ([facility]). Repeat cxr considered but based on exam findings, previous very recent report, will hold off for now. Neb tx x 1 here. Feels better. Will check blood work, f/u Dr. Szymanski this week. Questions as posed answered to the best of my ability. Reviewed last echocardiogram ([facility]). EF appr 35%. No pnd / orthopnea reported. No crackles. EKG reviewed SR at 86 bpm, LAE, LAD, nosp repo ab lat leads. Similar 08/2017. Feels better after neb tx. 11:10am August - Diagnoses Provider Diagnosis: COPD with acute bronchitis Discharge - Sign-Out/Discharge Documenting (check all that apply): Patient Departure All imaging exams completed and their final reports reviewed: No Studies - Discharge Plan Condition: Stable Disposition: HOME Patient Education Materials: Acute Bronchitis (ED), COPD (Chronic Obstructive Pulmonary Disease) (ED) Referrals: Chuck Jennings MD [Primary Care Provider] - Additional Instructions: Follow up with Dr. Lehman on August at 11:10am. Arrive a few minutes early if paperwork needs to be done. Blood work ordered today. Bring these instructions with you to your appoinment. Go go the Emergency Department for worse or new problems. - Billing Disposition and Condition Condition: STABLE Disposition: Home
[2018-08-21] MEDS ORDERED: Albuterol/Ipratropium NEB.SOL* Albuterol 2.5 MG/Ipratropium 0.5 MG 3 ML INH ONE (11:10)
[2018-08-21 16:17] LABS: ABS Basophils 0 10^3/ul (0-0.2); ABS Eosinophils 0.1 10^3/ul (0-0.6); ABS Lymphocytes 1.8 10^3/ul (1.0-4.8); ABS Neutrophils 6.8 10^3/ul (1.5-7.7); ABS Nucleated RBC 0 10^3/ul; Eosinophil % 0.7 %; Hematocrit 34 % (42-52); Hemoglobin 11.6 g/dl (14.0-18.0); Lymphocyte % 18.2 %; Mean Corpuscular HGB Conc 34 g/dl (31-36); Mean Corpuscular Hemoglobin 30 pg (27-31); Mean Corpuscular Volume 89 fL (80-94); Mean Platelet Volume 9.7 fL (7.4-10.4); Nucleated Red Blood Cells % 0; Platelet Count 251 10^3/ul (150-450); Red Cell Distribution Width 15 % (10.5-15); White Blood Count 9.7 10^3/ul (3.5-10.8)
[2018-08-21 16:23] LABS: Calcium 9.2 mg/dL (8.6-10.3); Potassium 4.1 mmol/L (3.5-5.0)
[2018-08-21 16:28] LABS: BUN/Creatinine Ratio 16.3 (8-20); C Reactive Protein 55.06 mg/L (<8.01); EGFR African American 81.7 (>60); EGFR Non-African American 67.6 (>60)
--- NOTE | 2018-08-22 07:24 | UC ---
- Progress Note Progress Note: Please follow up with patient to see how he is feeling. If he is still coughing or short of breath please have him follow up with his PCP or return to urgent care. He has slightly abnormal labs which could be in the setting of his cough and could be improving with his current management. But if he is not feeling better with antibiotics and steroids he should follow up with a provider. Course/Dx - Diagnoses Provider Diagnoses: COPD with acute bronchitis Discharge - Sign-Out/Discharge Documenting (check all that apply): Post-Discharge Follow Up All imaging exams completed and their final reports reviewed: No Studies - Discharge Plan Condition: Stable Disposition: HOME Patient Education Materials: Acute Bronchitis (ED), COPD (Chronic Obstructive Pulmonary Disease) (ED) Referrals: Chuck Jennings MD [Primary Care Provider] - Additional Instructions: Follow up with Dr. Lehman on , August 23 2018 at 11:10am. Arrive a few minutes early if paperwork needs to be done. Blood work ordered today. Bring these instructions with you to your appoinment. Go go the Emergency Department for worse or new problems. - Billing Disposition and Condition Condition: STABLE Disposition: Home
== END 2018-08-21 11:50 | disposition home or self-care (01) ==
LOC: UCEAST 09:44
DX: J44.9 Chronic obstructive pulmonary disease, unspecified (principal); J20.9 Acute bronchitis, unspecified; Z87.891 Personal history of nicotine dependence
CPT/HCPCS: 36415; 80048; 83735; 83880; 85025; 86140; 93005; 99212; A9270-GY; G0463

== ENCOUNTER 2018-10-12 17:12 | Inpatient (IN) | payer MEDICARE, OTHER ==
--- OUTSIDE RECORDS SUMMARY | 2018-10-12 17:38 | XMS REPORT | Continuity of Care Document ---
:1930 External Reference #:[id number] Author Name Era Coulter Care Team Providers Name Role Phone Chuck Painting MD Primary Care Physician Unavailable Payers Date Identification Numbers Payment Provider Subscriber Effective: 1996 Policy Number: [id number] Medicare Indio Estrada PayID: [id number] [address] [place] [address] Expires: 2017 Policy Number: [id number] [facility] Insurance Indio Estrada PayID: [id number] [address] [place] [address] Effective: 2016 Policy Number: [id number] [employer]ets Indio Estrada Expires: 2017 PayID: [id number] [address] [address] [place] [address] Effective: 2011 Policy Number: [id number] [employer] Indio Estrada Expires: 2016 PayID: [id number] [address] [address] [place] [address] Effective: 2017 Policy Number: [id number] [facility] Indio Estrada Group Number: [id number] [address] PayID: [id number] [place] [address] Advance Directives Description No Information Available Problems Active Problems Provider Date Abnormal results of cardiovascular function Monica Polo M.D. Onset: 2013 studies Aneurysm of thoracic aorta Monica Polo M.D. Onset: 02/09/2015 Essential hypertension Monica Polo M.D. Onset: 05/06/2015 Peptic reflux disease Monica Polo M.D. Onset: 05/06/2015 Cardiomyopathy, unspecified Monica Polo M.D. Onset: 05/06/2015 Cough Jeane Ross MD Onset: 05/16/2016 Asthma without status asthmaticus Jeane Ross MD Onset: 05/16/2016 Allergic rhinitis Jeane Ross MD Onset: 05/16/2016 Full thickness rotator cuff tear Hector Triplett MD Onset: 06/07/2016 Localized, primary osteoarthritis of the Hector Triplett MD Onset: 06/07/2016 shoulder region Preoperative cardiovascular examination Monica Polo M.D. Onset: 07/19/2016 Localized, primary osteoarthritis of the Luther Borja M.D. Onset: 08/22/2016 pelvic region and thigh Aortic valve disorder Monica Polo M.D. Onset: 12/08/2016 Other cardiomyopathies Monica Polo M.D. Onset: 12/08/2016 Mitral valve disorder Monica Polo M.D. Onset: 03/14/2017 Paroxysmal atrial fibrillation Monica Polo M.D. 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 Tobacco Use Start: Unknown Former Cigarette End: Unknown Smoker Tobacco Use Start: Unknown Quit in ETOH Use Consumes 1 glass of wine per day ETOH Use consumes 3 beers per week Tobacco Use Start: Unknown Patient is a former End: Unknown smoker Recreational Drug Use Denies Drug Use Tobacco Use Start: Unknown Light tobacco smoker less 1PPD throughout (10 or fewer teenage years, cigarettes/day) college Smoking Status Reviewed: 10/04/18 Light tobacco smoker less 1PPD throughout (10 or fewer teenage years, cigarettes/day) college Exercise Type/Frequency Exercises regularly Breathing exercise daily Exercise Type/Frequency Jogs 5 times a week Allergies, Adverse Reactions, Alerts Active Allergies Reaction Severity Comments Date NKDA 12/08/2016 Tree 10/19/2015 Pollen 10/19/2015 Inactive Allergies NKDA 09/18/2013 Medications Active Medications SIG Qnty Indications Ordering Date Provider Spiriva Respimat 1 puff every day 12gm Lydia 09/19/2018 DEEPTHI Gibson 2.5mcg/Act Aerosol Metoprolol Succinate 1/2 tab by mouth 30tabs I48.0 Samantha Liz, 2018 ER at bedtime N.P. 25mg Tablets ER 24HR Multaq 1 by mouth twice 180tabs Monica Polo, 08/23/2018 400mg Tablets a day M.D. Furosemide 1 tablet by mouth 60tabs I50.42 Monica Polo, 09/12/2017 20mg Tablets every monday, M.D. monday and monday. Spironolactone 1 tablet today 90tabs I50.42 Monica Polo, 09/12/2017 25mg and tomorrow then M.D. Tablets 1 tablet by mouth monday, , monday and monday. (alternating with lasix) Cane Patients Choice Straight Cane 1units Suraj F 12/20/2016 MD Eulalia [facility] Breo Ellipta one inhalation 60units Lydia daily DEEPTHI Gibson 200-25mcg/Inh Aerosol [place] Vinegar 1 1/2 tsp in Unknown water daily Eliquis 1 tablet by mouth 180tabs Monica Polo, 2.5mg Tablets twice a day. M.D. blood thinner. Fish Oil 1 by mouth d Unknown 1000mg Capsules Mucinex ER one by mouth Unknown 600mg every 12 hours for cough as needed Align Probiotic daily Unknown 4mg Preservision Areds 2 po qd Russel De Guzman MD Obdulio Capsules Coq10 1 cap po daily Unknown 100mg Multivitamins 1 by mouth every Unknown Capsules day Melatonin 1 by mouth every Unknown 5mg Capsules night at bedtime Turmeric/Curcumin 1 by mouth every Unknown 500mg day Capsules Cinnamon 2 po qd Unknown 1000mg Tablets Cetirizine HCL 1 by mouth qhs 30tabs Unknown 10mg Tablets Metformin HCL 1 tablet by mouth 180tabs Unknown 500mg daily Tablets Omeprazole 1 by mouth every 30caps Unknown 20mg day Capsules DR Irbesartan 1/2 tab by mouth 60tabs Monica Polo, 150mg daily, hs M.D. Tablets Ventolin HFA 2 puffs by mouth 18units Unknown four times a day 108(90Base) mcg/Act as needed Aerosol History Medications Metoprolol Tartrate 1/2 tab by mouth 90tabs I48.0 Samantha Liz, 2017 - twice a day pt N.P. 09/05/2018 25mg Tablets takes only the evening dose because of dizziness pt open to taking succinate each evening instead Kelp as directed Unknown 05/13/2016 - Tablets 09/17/2017 Albuterol Sulfate 1 vial via Unknown 05/13/2016 - nebulizer 4 times 11/16/2016 (2.5mg/3ML) 0.083% daily as needed Nebulizer [place] 1 by mouth daily Unknown - (pt not taking) 04/06/2017 Capsules Vitamin B12 1 by mouth every Unknown - 1000mcg day 09/18/2018 Tablets ER Saw Stanley 1 by mouth po Unknown - 450mg daily 09/14/2017 Capsules Benzonatate take one or two Unknown - 100mg capsules every 8 09/18/2018 Capsules hours as needed for cough. Fluticasone 2 sprays each Unknown - Propionate nostril qd. 07/03/2018 50mcg/Act Suspension Ipratropium [place] spray 1-2 sprays Unknown - in each nostril 08/22/2018 0.03% Solution before meals as needed Multaq 1 by mouth twice 90tabs Monica Polo, - 400mg Tablets per day M.D. 08/23/2018 Metoprolol Tartrate 1/2 by mouth twice Unknown - a day 09/17/2017 25mg Tablets Vitamin C 1 by mouth every Unknown - 1000mg day 08/21/2018 Tablets Erythromycin apply tid Unknown - 2% Gel 09/18/2018 Iodine Tincture topically qd Unknown - 2% 08/22/2018 Tincture Jesus Alexander prn Unknown - 200:1 09/18/2018 Tadalafil Unknown - 20mg Tablets 08/22/2018 Levofloxacin one tablet daily Unknown - 750mg for 5 days. 09/04/2018 Tablets Prednisone 40 mg oral daily Unknown - 20mg Tablets 08/29/2018 Alendronate Sodium take 1 tablet by Unknown - 70mg mouth dily 08/10/2018 Tablets Ipratropium 1 unit every 4 Unknown - [place]/Albuterol hours as needed 09/18/2018 Sulfate 0.5-2.5(3)mg/3ML Solution Bystolic 1/2 by mouth every 45tabs Monica Polo, - 5mg Tablets day M.D. 10/13/2017 Align 1 by mouth every 30caps Unknown - 4mg Capsules day 01/14/2015 Dymista 1 spray ea nostril Unknown - 137-50mcg/Act twice a day prn 04/06/2017 Suspension Accu-Check Multiclix for fsbg's bid Unknown - 11/16/2016 Lancets Atorvastatin Calcium 1 by mouth every 90tabs Unknown - day 09/08/2017 40mg Tablets Finasteride 1 by mouth every 30tabs Unknown - 5mg Tablets day 10/18/2015 Vitamin D 4 tablets by mouth 30tabs Unknown - 1000Unit everyday 01/13/2015 Tablets Spiriva Handihaler 2 inhalation off 1 90caps Unknown - cap by mouth every 09/19/2018 18mcg Capsules morning pt no longer uses this dosage form unsure of current dose form Glucometer Unknown - 11/16/2016 Cialis 1 tablet po every 15tabs Unknown - 10mg Tablets day as needed 11/30/2015 Tai Aspirin Ec Low 1 tablet po daily Unknown - Dose 09/28/2018 81mg Singulair 1 by mouth every 90tabs Unknown - 10mg Tablets day 11/16/2016 Vitamin D 1 po daily Unknown - 1000Units 04/06/2017 Prostate Health 1 po qd Unknown - 07/30/2017 Capsules Chromium Picolinate 1 po qd (pt not Unknown - taking) 04/06/2017 200mcg Tablets Lzu-Iyr-Tuhk-D daily Unknown - Tablets 09/10/2017 Breo Ellipta Inhale One puff Unknown - Into Lungs Once 08/22/2018 100-25mcg/Inh Aerosol Daily [place] 3 1 po twice daily Unknown - 09/11/2017 Medications Administered in Office Medication SIG Qnty Indications Ordering Provider Date Depomedrol 40MG Luther Borja M.D. 04/23/2018 Injection Depomedrol 40MG Suraj Esteban MD 11/16/2017 Injection Depomedrol 40MG Suraj Esteban MD 01/09/2017 Injection Depomedrol 40MG Suraj Esteban MD 11/08/2016 Injection Technetium TC 99M Phil Wiseman DO [facility] 08/05/2016 Tetrofosmin, Per Unit Dose Up To 40 Millicuries Injection Depomedrol 40MG Suraj Esteban MD 06/14/2016 Injection Technetium TC 99M Eduardo Rocha M.D., 01/27/2015 Tetrofosmin, Per Unit Dose [facility] Up To 40 Millicuries Injection Technetium TC 99M Moniac Polo M.D. 01/27/2015 Tetrofosmin, Per Unit Dose Up To 40 Millicuries Injection Technetium TC 99M Monica Polo M.D. 04/25/2013 Tetrofosmin, Per Unit Dose Up To 40 Millicuries Injection Immunizations Description No Information Available Vital Signs Date Vital Result Comment 10/04/2018 10:37am Height 60 inches 5'0" Heart Rate 98 /min BP Systolic 124 mmHg BP Diastolic 60 mmHg Respiratory Rate 18 /min Body Temperature 98.1 F Pain Level 2 09/28/2018 3:04pm Height 60 inches 5'0" Weight 161.00 lb with shoes Heart Rate 80 /min BP Systolic Sitting 114 mmHg Lue reg cuff BP Diastolic Sitting 66 mmHg Lue reg cuff BP Systolic Standing 110 mmHg Lue reg cuff BP Diastolic Standing 70 mmHg Lue reg cuff Respiratory Rate 16 /min BMI (Body Mass Index) 31.4 kg/m2 Ejection Fraction 40-45% date 12/29/17 ECHO 09/19/2018 10:28am Height 60 inches 5'0" Weight 163.12 lb Heart Rate 84 /min BP Systolic Sitting 124 mmHg Lue regular cuff BP Diastolic Sitting 72 mmHg Lue regular cuff Respiratory Rate 12 /min O2 % BldC Oximetry 98 % BMI (Body Mass Index) 31.9 kg/m2 09/04/2018 3:42pm Height 60 inches 5'0" Weight 154.00 lb Heart Rate 83 /min BP Systolic Sitting 130 mmHg lue reg cuff BP Diastolic Sitting 64 mmHg lue reg cuff BP Systolic Standing 132 mmHg lue reg cuff BP Diastolic Standing 68 mmHg lue reg cuff Respiratory Rate 14 /min BMI (Body Mass Index) 30.1 kg/m2 Ejection Fraction 40-45% echo.12/29/17 08/23/2018 10:17am Height 60 inches 5'0" Weight 160.50 lb w/shoes Heart Rate 86 /min reg BP Systolic Sitting 110 mmHg Lue reg cuff BP Diastolic Sitting 50 mmHg Lue reg cuff Respiratory Rate 16 /min BMI (Body Mass Index) 31.3 kg/m2 06/28/2018 9:35am Height 60 inches 5'0" Weight 154.00 lb BP Systolic 123 mmHg BP Diastolic 62 mmHg Respiratory Rate 15 /min Pain Level 2 BMI (Body Mass Index) 30.1 kg/m2 06/13/2018 2:39pm Height 66 inches 5'6" Weight 156.00 lb BP Systolic 128 mmHg BP Diastolic 66 mmHg Respiratory Rate 20 /min Pain Level 1 BMI (Body Mass Index) 25.2 kg/m2 04/23/2018 10:38am Weight 156.00 lb Heart Rate 87 /min BP Systolic 122 mmHg BP Diastolic 62 mmHg Respiratory Rate 17 /min Body Temperature 98.1 F Pain Level 6 01/29/2018 4:14pm Weight 172.00 lb Heart Rate 66 /min BP Systolic Sitting 136 mmHg lue reg cuff BP Diastolic Sitting 70 mmHg lue reg cuff BP Systolic Standing 140 mmHg BP Diastolic Standing 70 mmHg Respiratory Rate 16 /min Ejection Fraction 40-45% 12/29/2017 echo 11/16/2017 11:50am Heart Rate 80 /min BP Systolic 140 mmHg BP Diastolic 66 mmHg Respiratory Rate 20 /min Body Temperature 96.6 F 10/13/2017 1:35pm Weight 164.00 lb with shoes Heart Rate 70 /min BP Systolic Sitting 130 mmHg Rue reg cuff BP Diastolic Sitting 60 mmHg Rue reg cuff BP Systolic Standing 130 mmHg Rue reg cuff BP Diastolic Standing 70 mmHg Rue reg cuff Respiratory Rate 16 /min 09/18/2017 10:13am Weight 160.00 lb Heart Rate 64 /min BP Systolic Sitting 126 mmHg BP Diastolic Sitting 68 mmHg Respiratory Rate 14 /min O2 % BldC Oximetry 98 % 09/15/2017 9:16am Weight 159.00 lb with shoes Heart Rate 70 /min BP Systolic Sitting 128 mmHg Rue reg cuff BP Diastolic Sitting 60 mmHg Rue reg cuff BP Systolic Standing 128 mmHg Rue reg cuff BP Diastolic Standing 70 mmHg Rue reg cuff 09/12/2017 8:39am Height 66 inches 5'6" Weight 160.00 lb Heart Rate 74 /min BP Systolic Sitting 118 mmHg Rue reg cuff BP Diastolic Sitting 72 mmHg Rue reg cuff BP Systolic Standing 122 mmHg Rue BP Diastolic Standing 70 mmHg Rue Respiratory Rate 16 /min BMI (Body Mass Index) 25.8 kg/m2 Ejection Fraction 30-35% 08/28/17 07/31/2017 3:40pm Height 67.25 inches 5'7.25" Weight 166.00 lb w/shoes Heart Rate 80 /min BP Systolic Sitting 130 mmHg LA reg cuff BP Diastolic Sitting 60 mmHg LA reg cuff BP Systolic Standing 134 mmHg LA reg cuff BP Diastolic Standing 64 mmHg LA reg cuff BMI (Body Mass Index) 25.8 kg/m2 Ejection Fraction 35-40% Echo 02/28/17 04/06/2017 10:40am Height 67.25 inches 5'7.25" Weight 166.25 lb with shoes, coat Heart Rate 78 /min BP Systolic Sitting 110 mmHg Lue reg cuff BP Diastolic Sitting 72 mmHg Lue reg cuff Respiratory Rate 14 /min O2 % BldC Oximetry 98 % On Ra BMI (Body Mass Index) 25.8 kg/m2 03/14/2017 9:26am Height 67.25 inches 5'7.25" Weight 163.00 lb with shoes Heart Rate 64 /min BP Systolic Sitting 152 mmHg Rue reg cuff BP Diastolic Sitting 70 mmHg Rue reg cuff BP Systolic Standing 146 mmHg Rue reg cuff BP Diastolic Standing 70 mmHg Rue reg cuff Respiratory Rate 16 /min BMI (Body Mass Index) 25.3 kg/m2 Ejection Fraction 35-40% 02/28/2017-echo 01/09/2017 1:29pm Height 67.25 inches 5'7.25" Weight 163.00 lb BP Systolic 124 mmHg BP Diastolic 69 mmHg Respiratory Rate 16 /min Pain Level 4 BMI (Body Mass Index) 25.3 kg/m2 12/08/2016 12:54pm Height 67.25 inches 5'7.25" Weight 162.00 lb with shoes Heart Rate 80 /min BP Systolic 124 mmHg Rue reg cuff BP Diastolic 66 mmHg Rue reg cuff BP Systolic Sitting 110 mmHg Rue reg cuff BP Diastolic Sitting 60 mmHg Rue reg cuff BP Systolic Standing 120 mmHg Lue reg cuff BP Diastolic Standing 64 mmHg Lue reg cuff Respiratory Rate 17 /min BMI (Body Mass Index) 25.2 kg/m2 Ejection Fraction 30-35% date 09/06/16 ECHO 11/08/2016 9:44am Height 67.25 inches 5'7.25" Weight 167.00 lb Heart Rate 80 /min BP Systolic 139 mmHg BP Diastolic 70 mmHg Respiratory Rate 14 /min Body Temperature 96.0 F Pain Level 4 BMI (Body Mass Index) 26.0 kg/m2 10/12/2016 9:53am Height 67.25 inches 5'7.25" Weight 167.00 lb Heart Rate 74 /min BP Systolic 141 mmHg BP Diastolic 77 mmHg Respiratory Rate 16 /min Body Temperature 97.6 F Pain Level 4 BMI (Body Mass Index) 26.0 kg/m2 08/25/2016 11:13am Height 67.25 inches 5'7.25" Weight 176.00 lb Heart Rate 72 /min BP Systolic Sitting 130 mmHg BP Diastolic Sitting 70 mmHg Respiratory Rate 16 /min O2 % BldC Oximetry 97 % BMI (Body Mass Index) 27.4 kg/m2 08/22/2016 9:27am Height 67.25 inches 5'7.25" Weight 176.00 lb Heart Rate 68 /min BP Systolic Sitting 126 mmHg BP Diastolic Sitting 68 mmHg Respiratory Rate 16 /min Body Temperature 96.5 F Pain Level 5 BMI (Body Mass Index) 27.4 kg/m2 08/09/2016 12:51pm Height 67 inches 5'7" Weight 166.00 lb with shoes BP Systolic Sitting 130 mmHg Rue reg cuff BP Diastolic Sitting 70 mmHg Rue reg cuff BP Systolic Standing 132 mmHg Rue reg cuff BP Diastolic Standing 72 mmHg Rue reg cuff BMI (Body Mass Index) 26.0 kg/m2 Ejection Fraction 25-30% date 07/27/16 ECHO 07/19/2016 10:59am Height 67 inches 5'7" Weight 165.00 lb w/ shoes Heart Rate 96 /min reg BP Systolic Sitting 142 mmHg Rue, reg cuff BP Diastolic Sitting 76 mmHg Rue, reg cuff BP Systolic Standing 134 mmHg Rue BP Diastolic Standing 80 mmHg Rue Respiratory Rate 16 /min BMI (Body Mass Index) 25.8 kg/m2 Ejection Fraction 35-40% as of 01/13/15 echo 06/14/2016 1:44pm Height 67 inches 5'7" Weight 170.00 lb Respiratory Rate 17 /min Pain Level 5 BMI (Body Mass Index) 26.6 kg/m2 06/07/2016 2:57pm Height 67 inches 5'7" Weight 170.00 lb Heart Rate 60 /min BP Systolic Sitting 122 mmHg BP Diastolic Sitting 70 mmHg Pain Level 8 BMI (Body Mass Index) 26.6 kg/m2 05/16/2016 1:26pm Height 67 inches 5'7" Weight 170.00 lb Heart Rate 80 /min BP Systolic Sitting 142 mmHg BP Diastolic Sitting 78 mmHg O2 % BldC Oximetry 95 % BMI (Body Mass Index) 26.6 kg/m2 12/15/2015 1:44pm Height 67 inches 5'7" Weight 169.50 lb w/o shoes Heart Rate 90 /min reg BP Systolic Sitting 134 mmHg Rue, reg cuff BP Diastolic Sitting 80 mmHg Rue, reg cuff BP Systolic Standing 130 mmHg Rue BP Diastolic Standing 80 mmHg Rue Respiratory Rate 16 /min BMI (Body Mass Index) 26.5 kg/m2 Ejection Fraction 35-40% as of 01/13/15 echo 12/01/2015 8:48am Height 67 inches 5'7" Weight 173.00 lb with shoes Heart Rate 80 /min BP Systolic Sitting 128 mmHg Ra reg cuff BP Diastolic Sitting 70 mmHg Ra reg cuff BP Systolic Standing 130 mmHg Ra reg cuff BP Diastolic Standing 70 mmHg Ra reg cuff Respiratory Rate 16 /min BMI (Body Mass Index) 27.1 kg/m2 Ejection Fraction 35-40% 01/13/15 10/19/2015 3:25pm Height 67 inches 5'7" Weight 178.31 lb with shoes BP Systolic Sitting 142 mmHg LA reg cuff BP Diastolic Sitting 76 mmHg LA reg cuff BP Systolic Standing 150 mmHg LA reg cuff BP Diastolic Standing 80 mmHg LA reg cuff BMI (Body Mass Index) 27.9 kg/m2 09/10/2015 1:55pm Height 67 inches 5'7" Heart Rate 84 /min BP Systolic Sitting 130 mmHg L arm regular cuff BP Diastolic Sitting 70 mmHg L arm regular cuff BP Systolic Standing 128 mmHg BP Diastolic Standing 80 mmHg Respiratory Rate 18 /min 05/06/2015 1:55pm Height 67 inches 5'7" Weight 172.00 lb w/o shoes Heart Rate 78 /min reg BP Systolic Sitting 130 mmHg Rue, reg cuff BP Diastolic Sitting 86 mmHg Rue, reg cuff BP Systolic Standing 122 mmHg Rue BP Diastolic Standing 86 mmHg Rue Respiratory Rate 18 /min BMI (Body Mass Index) 26.9 kg/m2 Ejection Fraction 35-40% as of 01/13/15 echo 02/09/2015 2:51pm Height 67 inches 5'7" Weight 175.00 lb w/ shoes Heart Rate 80 /min reg BP Systolic Sitting 138 mmHg Rue, reg cuff BP Diastolic Sitting 74 mmHg Rue, reg cuff BP Systolic Standing 134 mmHg Rue BP Diastolic Standing 70 mmHg Rue Respiratory Rate 18 /min BMI (Body Mass Index) 27.4 kg/m2 Ejection Fraction 35-40% as of 01/13/15 echo 09/20/2013 10:16am Weight 171.75 lb with out shoes Heart Rate 74 /min BP Systolic 150 mmHg Ra reg cuff BP Diastolic 90 mmHg Ra reg cuff BP Systolic Sitting 144 mmHg LA reg cuff BP Diastolic Sitting 90 mmHg LA reg cuff BP Systolic Standing 140 mmHg LA reg cuff BP Diastolic Standing 76 mmHg LA reg cuff BP Systolic Recheck 17 mmHg Results Test Date Facility Test Result H/L Range Note Basic Metabolic 09/28/2018 [facility] Sodium 137 mmol/L N 135- [address] [place] [address] [phone] Potassium 4.6 mmol/L N 3.5-5.0 Chloride 103 mmol/L N 101-111 Co2 Carbon Dioxide 27 mmol/L N 22-32 Anion Gap 7 mmol/L N 2-11 Glucose 156 mg/dL High 70-100 Blood Urea Nitrogen 19 mg/dL N 6-24 Creatinine 1.08 mg/dL N 0.67-1.17 BUN/Creatinine Ratio 17.6 N 8-20 Calcium 9.2 mg/dL N 8.6-10.3 Egfr Non- 64.7 >60 Egfr 78.3 >60 1 Basic Metabolic 10/16/2017 [facility] Sodium 136 mmol/L Low 139-[address] [place] [address] [phone] Potassium 4.1 mmol/L N 3.5-5.0 Chloride 101 mmol/L N 101-111 Co2 Carbon Dioxide 29 mmol/L N 22-32 Anion Gap 6 mmol/L N 2-11 Glucose 137 mg/dL High 70-100 Blood Urea Nitrogen 14 mg/dL N 6-24 Creatinine 0.97 mg/dL N 0.67-1.17 BUN/Creatinine Ratio 14.4 N 8-20 Calcium 9.2 mg/dL N 8.6-10.3 Egfr Non- 73.4 >60 Egfr 94.4 >60 2 Laboratory test 10/16/2017 [facility] B-Type 291 pg/mL High [address] [place] [address] Peptide BNP [phone] Magnesium 2.0 mg/dL N 1.9-2.7 4 Basic Metabolic Panel 10/03/2016 [facility] Sodium 135 mmol/L N 133-[address] [place] [address] [phone] Potassium 4.1 mmol/L N 3.5-5.0 Chloride 102 mmol/L N 101-111 Co2 Carbon Dioxide 26 mmol/L N 22-32 Anion Gap 7 mmol/L N 2-11 Glucose 125 mg/dL High 70-100 Blood Urea Nitrogen 19 mg/dL N 6-24 Creatinine 0.95 mg/dL N 0.67-1.17 BUN/Creatinine Ratio 20.0 N 8-20 Calcium 8.9 mg/dL N 8.6-10.3 Egfr Non- 75.3 N >60 Egfr 96.9 N >60 5 1 Because ethnic data is not always readily available, this report includes an eGFR for both -Americans and non- Americans. The National Kidney Disease Education Program (NKDEP) does not endorse the use of the MDRD equation for patients that are not between the ages of 18 and 70, are , have extremes of body size, muscle mass, or nutritional status, or are non- or non-. According to the National Kidney Foundation, irrespective of diagnosis, the stage of the disease is based on the level of kidney function: Stage Description GFR(mL/min/1.73 m(2)) 1 Kidney damage with normal or decreased GFR 90 2 Kidney damage with mild decrease in GFR 60-89 3 Moderate decrease in GFR 30-59 4 Severe decrease in GFR 15-29 5 Kidney failure <15 (or dialysis) 2 Because ethnic data is not always readily available, this report includes an eGFR for both -Americans and non- Americans. The National Kidney Disease Education Program (NKDEP) does not endorse the use of the MDRD equation for patients that are not between the ages of 18 and 70, are , have extremes of body size, muscle mass, or nutritional status, or are non- or non-. According to the National Kidney Foundation, irrespective of diagnosis, the stage of the disease is based on the level of kidney function: Stage Description GFR(mL/min/1.73 m(2)) 1 Kidney damage with normal or decreased GFR 90 2 Kidney damage with mild decrease in GFR 60-89 3 Moderate decrease in GFR 30-59 4 Severe decrease in GFR 15-29 5 Kidney failure <15 (or dialysis) 3 >100 to <200 pg/mL: likely compensated congestive heart failure (CHF) 200 to 400 pg/mL: likely moderate CHF >400 pg/mL: likely moderate to severe CHF 4 1-2 weeks, diuretics added. Lasix 20 mg alt aldactone 25 mg Copy Result to: CHUCK PAINTING ([id number]) 5 Because ethnic data is not always readily available, this report includes an eGFR for both -Americans and non- Americans. The National Kidney Disease Education Program (NKDEP) does not endorse the use of the MDRD equation for patients that are not between the ages of 18 and 70, are , have extremes of body size, muscle mass, or nutritional status, or are non- or non-. According to the National Kidney Foundation, irrespective of diagnosis, the stage of the disease is based on the level of kidney function: Stage Description GFR(mL/min/1.73 m(2)) 1 Kidney damage with normal or decreased GFR 90 2 Kidney damage with mild decrease in GFR 60-89 3 Moderate decrease in GFR 30-59 4 Severe decrease in GFR 15-29 5 Kidney failure <15 (or dialysis) Procedures Date Code Description Status 10/03/2018 [id number] ECHO Transthoracic, Real-Time 2D With Doppler And Completed Color Flow 09/28/2018 [id number] EKG Tracing & Interpretation Completed 09/04/2018 [id number] EKG Tracing & Interpretation Completed 04/23/2018 [id number] Inject/Drain Joint/Bursa Major W/O US Completed 01/29/2018 [id number] EKG Tracing & Interpretation Completed 12/29/2017 [id number] ECHO Transthoracic, Real-Time 2D With Doppler And Completed Color Flow 12/29/2017 [id number] ECHO Transthoracic, Real-Time 2D With Doppler And Completed Color Flow 11/16/2017 15688 Inject/Drain Joint/Bursa Major W/O US Completed 09/15/2017 [id number] EKG Tracing & Interpretation Completed 09/15/2017 [id number] EKG Tracing & Interpretation Completed 09/12/2017 80171 EKG Tracing & Interpretation Completed 08/28/2017 [id number] ECHO Transthorasic Realtime 2D W Doppler & Color Flow Completed Hosp 07/31/2017 [id number] EKG Tracing & Interpretation Completed 02/28/2017 11201 ECHO Transthoracic, Real-Time 2D With Doppler And Completed Color Flow 02/28/2017 80213 ECHO Transthoracic, Real-Time 2D With Doppler And Completed Color Flow 01/09/2017 74830 Inject/Drain Joint/Bursa Major W/O US Completed 11/08/2016 16757 Inject/Drain Joint/Bursa Major W/O US Completed 09/06/2016 [id number] ECHO Transthoracic, Real-Time 2D With Doppler And Completed Color Flow 08/17/2016 [id number] Diabetic Retinal Eye Exam Completed 08/09/2016 38340 EKG Tracing & Interpretation Completed 08/05/2016 59009 Stress Test Completed 08/05/2016 73199 Myocardial Perfusion Imaging Tomographic (Spect) Completed Multiple Studies 07/27/2016 70685 ECHO Transthoracic, Real-Time 2D With Doppler And Completed Color Flow 07/27/2016 66843 ECHO Transthoracic, Real-Time 2D With Doppler And Completed Color Flow 07/19/2016 53933 EKG Tracing & Interpretation Completed 06/14/2016 15418 Inject/Drain Joint/Bursa Major W/O US Completed 05/13/2016 55479 Diffusing Capacity Completed 05/13/2016 84873 Plethysmography Determination Lung Volumes & Per Completed Airway Resist 05/13/2016 19030 Pulmonary Function><Bronchodil Completed 10/19/2015 48160 EKG Tracing & Interpretation Completed 05/06/2015 20692 EKG Tracing & Interpretation Completed 04/27/2015 28854 EKG Tracing & Interpretation Completed 01/27/2015 61855 Stress Test Completed 01/27/2015 19984 Myocardial Perfusion Imaging Tomographic (Spect) Completed Multiple Studies 01/27/2015 75732 Myocardial Perfusion Imaging Tomographic (Spect) Completed Multiple Studies 01/13/2015 13172 ECHO Transthorasic Realtime 2D W Doppler & Color Flow Completed [facility] 10/17/2013 57310 ECHO Transthoracic, Real-Time 2D With Doppler And Completed Color Flow 09/20/2013 24563 EKG Tracing & Interpretation Completed 04/25/2013 32299 Stress Test Completed 04/25/2013 13088 Myocardial Perfusion Imaging Tomographic (Spect) Completed Multiple Studies Encounters Type Date Location Provider Dx Diagnosis Office Visit 09/28/2018 [facility] Samantha Liz, I48.0 Paroxysmal atrial 3:00p Of It Application Support Analyst N.P. fibrillation I50.42 Chronic combined systolic and diastolic hrt fail I71.2 Thoracic aortic aneurysm, without rupture I34.0 Nonrheumatic mitral (valve) insufficiency Office Visit 08/23/2018 10:30a [facility] Samantha Mak I71.2 Thoracic aortic Of It Application Support Analyst Foster, N.P. 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 shoulder M75.122 Complete rotatr-cuff tear/ruptr of left shoulder, not trauma Office Visit 06/13/2018 2:45p Orthopedic Luther Borja, S46.002A Unsp inj Services Of [place]. musc/tend the C.M.A. rotator cuff of l shoulder, init Office Visit 04/23/2018 10:30a Orthopedic Luther Borja, M75.102 Unsp rotatr- cuff Services Of [place] tear/ruptr of C.M.A. left shoulder, not trauma M75.52 Bursitis of left shoulder Office Visit 01/29/2018 4:20p [facility] Monica Polo, I50.42 Chronic combined Of Flavia [place] systolic and diastolic hrt fail I48.0 Paroxysmal atrial fibrillation I42.8 Other cardiomyopathies I71.2 Thoracic aortic aneurysm, without rupture I34.0 Nonrheumatic mitral (valve) insufficiency Office Visit 10/13/2017 [place] Samantha Mak I42.9 Cardiomyopathy, 2:00p Cardiology Of Agusto, N.P. unspecified [facility] R94.31 Abnormal electrocardiogram [ECG] [EKG] I50.42 Chronic combined systolic and diastolic hrt fail I48.0 Paroxysmal atrial fibrillation Office Visit 09/18/2017 Pulmonology And Jeane J45.909 Unspecified asthma , 10:30a Sleep Services Of MD Vandana uncomplicated [facility] J98.4 Other disorders of lung Office Visit 09/15/2017 9:30a [facility] Samantha SAquiles I48.0 Paroxysmal atrial Of [facility] Agusto, N.P. fibrillation I42.9 Cardiomyopathy, unspecified I50.42 Chronic combined systolic and diastolic hrt fail I34.0 Nonrheumatic mitral (valve) insufficiency Office Visit 09/12/2017 8:45a [facility] Monica Polo I48.0 Paroxysmal atrial Of Flavia [place] fibrillation I42.9 Cardiomyopathy, unspecified I50.42 Chronic combined systolic and diastolic hrt fail I34.0 Nonrheumatic mitral (valve) insufficiency R06.02 Shortness of breath Office Visit 08/29/2017 12:10p [facility] Dayday Young I48.0 Paroxysmal atrial Of Flavia Lora M.D. fibrillation I42.9 Cardiomyopathy, unspecified I50.9 Heart failure, unspecified Office Visit 08/29/2017 [facility] I48.91 Unspecified atrial 2:29p Assoc,tyra Gonzalez D.O. fibrillation Hospitalists I10 Essential (primary) hypertension E11.9 Type 2 diabetes mellitus without complications I42.8 Other cardiomyopathies Office Visit 08/28/2017 9:25a [facility] Dayday Young I50.9 Heart failure, Of [facility] Vinnie Lora unspecified I48.0 Paroxysmal atrial fibrillation Office Visit 08/28/2017 [facility] I48.91 Unspecified atrial 2:08p Assoc,tyra Gonzalez D.O. 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 H02.34 Blepharochalasis left upper eyelid Office Visit 04/06/2017 10:45a Pulmonology And Sleep Jeane Ross MD R05 Cough Services Of [facility] J45.998 Other asthma Office Visit 03/14/2017 9:45a [facility] Monica Polo I71.2 Thoracic aortic Of [facility] M.DAquiles aneurysm, without rupture I35.1 Nonrheumatic aortic (valve) insufficiency I34.0 Nonrheumatic mitral (valve) insufficiency I42.8 Other cardiomyopathies I10 Essential (primary) hypertension Office Visit 03/14/2017 Orthopedic Suraj Nazario 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 knee Office Visit 01/09/2017 Orthopedic Suraj Nazario M17.11 Unilateral primary 1:30p Services Of MD [place] osteoarthritis, right C.M.A. knee Office Visit 12/08/2016 [place] Monica Polo I42.8 Other 1:15p Cardiology Of [place] cardiomyopathies [facility] I71.2 Thoracic aortic aneurysm, without rupture I35.1 Nonrheumatic aortic (valve) insufficiency Office Visit 11/08/2016 9:30a Orthopedic Suraj Nazario M75.41 Impingement Services Of MD [place] syndrome of right C.M.A. shoulder S46.011D Strain of musc/tend the rotator cuff of right shoulder, subs M19.011 Primary osteoarthritis, right shoulder Office Visit 10/12/2016 Orthopedic Luther Borja, M16.12 Unilateral primary 9:45a Services Of MAquilesDAquiles osteoarthritis, left C.M.A. hip Office Visit 08/25/2016 Pulmonology And Jeane R05 Cough 11:30a Sleep Services Of MD Vandana [facility] J45.998 Other asthma Office Visit 08/22/2016 Orthopedic Luther Borja, M16.12 Unilateral primary 9:00a Services Of [place] osteoarthritis, left C.M.A. hip M25.552 Pain in left hip Office Visit 08/09/2016 [place] Monica Polo I42.9 Cardiomyopathy, 1:00p Cardiology Of M.D. unspecified It Application Support Analyst R94.31 Abnormal electrocardiogram [ECG] [EKG] R31.0 Gross hematuria Office Visit 07/19/2016 11:15a [facility] Monica Polo, I71.2 Thoracic aortic Of It Application Support Analyst M.D. aneurysm, without rupture Z01.810 Encounter for preprocedural cardiovascular examination I10 Essential (primary) hypertension R31.0 Gross hematuria R94.31 Abnormal electrocardiogram [ECG] [EKG] Office Visit 06/07/2016 2:30p Orthopedic Hector Triplett, M75.121 Complete Services Of MD cappstr-cuff C.M.A. tear/ruptr of r shoulder, not trauma M19.011 Primary osteoarthritis, right shoulder Office Visit 05/16/2016 2:00p Pulmonology And Sleep Jeane Ross MD R05 Cough Services Of It Application Support Analyst K21.0 Gastro-esophageal reflux disease with esophagitis J30.9 Allergic rhinitis, unspecified J45.998 Other asthma Office Visit 12/15/2015 2:00p [facility] Era George, I10 Essential (primary) Of It Application Support Analyst PA hypertension I71.2 Thoracic aortic aneurysm, without rupture I42.9 Cardiomyopathy, unspecified I11.9 Hypertensive heart disease without heart failure Office Visit 12/01/2015 9:00a [facility] Era George, I10 Essential (primary) Of It Application Support Analyst PA hypertension I71.2 Thoracic aortic aneurysm, without rupture I42.9 Cardiomyopathy, unspecified R07.9 Chest pain, unspecified Office Visit 10/19/2015 3:30p [facility] Monica Polo, I10 Essential (primary) Of [facility] M.D. hypertension I71.2 Thoracic aortic aneurysm, without rupture I11.9 Hypertensive heart disease without heart failure Office Visit 09/10/2015 1:45p [facility] Nurse Visit I10 Essential (primary) Of [facility] IC hypertension Office Visit 05/06/2015 2:00p [facility] Monica I42.9 Cardiomyopathy , Of [facility] Christ, unspecified M.D. R07.9 Chest pain, unspecified I10 Essential (primary) hypertension I71.2 Thoracic aortic aneurysm, without rupture K21.0 Gastro-esophageal reflux disease with esophagitis R94.31 Abnormal electrocardiogram [ECG] [EKG] [facility] R07.9 Chest pain , Assoc,pc N.P. unspecified Hospitalists I10 Essential (primary) hypertension E11.9 Type 2 diabetes mellitus without complications E78.5 Hyperlipidemia, unspecified Office Visit 04/27/2015 [facility] R07.9 Chest pain , Assoc,pc N.P. unspecified Hospitalists I10 Essential (primary) hypertension E11.9 Type 2 diabetes mellitus without complications E78.5 Hyperlipidemia, unspecified Office Visit 02/09/2015 3:00p [facility] Monica Polo, 441.2 Aneurysm Of [facility] M.D. Thoracic W/O Rupture 794.39 Cardiovascular Study Other Abnormal Office Visit 09/20/2013 [place] Monica Polo, 794.39 Cardiovascular Study 9:45a Cardiology Of M.D. Other Abnormal [facility] Plan of Treatment Future Appointment(s):10/12/2018 9:00 am - Samantha Liz, N.P. at [facility]10/04/2018 - Suraj Esteban, MDM19.012 Primary osteoarthritis, left shoulderFollow up:Follow up: As needed
--- OUTSIDE RECORDS SUMMARY | 2018-10-12 17:38 | XMS REPORT | Continuity of Care Document ---
:1930 External Reference #:[id number] Author Name Deloris Ramirez Care Team Providers Name Role Phone Chuck Painting MD Primary Care Physician Unavailable Payers Date Identification Numbers Payment Provider Subscriber Effective: 1996 Policy Number: [id number] Medicare Indio Estrada PayID: [id number] [address] [place] [address] Expires: 2017 Policy Number: [id number] [facility] Insurance Indio Estrada PayID: [id number] [address] [place] [address] Effective: 2016 Policy Number: [id number] [employer] Indio Estrada Expires: 2017 PayID: [id number] [address] [address] [place] [address] Effective: 2011 Policy Number: [id number] [employer] Indio Estrada Expires: 2016 PayID: [id number] [address] [address] [place] [address] Effective: 2017 Policy Number: [id number] [facility] Indio Estrada Group Number: [id number] [address] PayID: [id number] [place] [address] Advance Directives Description No Information Available Problems [...] teenage years, cigarettes/day) college Smoking Status Reviewed: 09/28/18 Light tobacco smoker less 1PPD throughout (10 [...] Cane 1units Suraj F 12/20/2016 MD Eulalia [facility]o Ellipta one inhalation 60units Lydia daily [...] Cinnamon 2 po qd Unknown 1000mg Tablets Tai Aspirin Ec Low 1 tablet po daily Unknown Dose 81mg Cetirizine HCL 1 by mouth qhs 30tabs [...] 11/16/2016 (2.5mg/3ML) 0.083% daily as needed Nebulizer Catie Wayne 1 by mouth daily Unknown - (pt not taking) 04/06/2017 Capsules Vitamin B12 1 by mouth every Unknown - 1000mcg day 09/18/2018 Tablets ER Saw Milroy 1 by mouth po Unknown - 450mg daily 09/14/2017 Capsules Benzonatate take one or two Unknown - 100mg capsules every 8 09/18/2018 Capsules hours as needed for cough. Fluticasone 2 sprays each Unknown - Propionate nostril qd. 07/03/2018 50mcg/Act Suspension Ipratropium Crete spray 1-2 sprays Unknown - in each [...] Ipratropium 1 unit every 4 Unknown - Crete/Albuterol hours as needed 09/18/2018 Sulfate 0.5-2.5(3)mg/3ML Solution [...] - 10mg Tablets day as needed 11/30/2015 Singulair 1 by mouth every 90tabs Unknown - 10mg Tablets day 11/16/2016 Vitamin D 1 po daily Unknown - 1000Units 04/06/2017 Prostate Health 1 po qd Unknown - 07/30/2017 Capsules Chromium Picolinate 1 po qd (pt not Unknown - taking) 04/06/2017 200mcg Tablets Ubn-Oho-Qnrz-D daily Unknown - Tablets 09/10/2017 Breo Ellipta Inhale One puff Unknown - Into Lungs Once 08/22/2018 100-25mcg/Inh Aerosol Daily [employer] 3 1 po twice daily Unknown - 09/11/2017 Medications Administered in Office Medication SIG Qnty Indications Ordering Provider Date Depomedrol 40MG Luther Borja M.D. 04/23/2018 Injection Depomedrol 40MG Suraj Esteban MD 11/16/2017 Injection Depomedrol 40MG Suraj Esteban MD 01/09/2017 Injection Depomedrol 40MG Suraj Esteban MD 11/08/2016 Injection Technetium TC 99M Phil Wiseman DO [facility] 08/05/2016 Tetrofosmin, Per Unit Dose Up To 40 Millicuries Injection Depomedrol 40MG Suraj Esteban MD 06/14/2016 Injection Technetium TC 99M Eduardo Rocha M.D., 01/27/2015 Tetrofosmin, Per Unit Dose [facility] Up To 40 Millicuries Injection Technetium TC 99M Monica Polo M.D. 01/27/2015 Tetrofosmin, Per Unit Dose Up To 40 Millicuries Injection Technetium TC 99M Monica Polo M.D. 04/25/2013 Tetrofosmin, Per Unit Dose Up To 40 Millicuries Injection Immunizations Description No Information Available Vital Signs Date Vital Result Comment 09/28/2018 3:04pm Height 60 inches 5'0" Weight [...] Result H/L Range Note Basic Metabolic 09/28/2018 [facility] Sodium 137 mmol/L N 135- [address] [place] [address] [phone] Potassium 4.6 mmol/L N 3.5-5.0 Chloride 103 mmol/L N 101-111 Co2 Carbon Dioxide 27 mmol/L N 22-32 Anion Gap 7 mmol/L N 2-11 Glucose 156 mg/dL High 70-100 Blood Urea Nitrogen 19 mg/dL N 6-24 Creatinine 1.08 mg/dL N 0.67-1.17 BUN/Creatinine Ratio 17.6 N 8-20 Calcium 9.2 mg/dL N 8.6-10.3 Egfr Non- 64.7 >60 Egfr 78.3 >60 1 Basic Metabolic 10/16/2017 [facility] Sodium 136 mmol/L Low 139-145 Panel [address] [place] [address] [phone] Potassium 4.1 mmol/L N 3.5-5.0 Chloride 101 mmol/L N 101-111 Co2 Carbon Dioxide 29 mmol/L N 22-32 Anion Gap 6 mmol/L N 2-11 Glucose 137 mg/dL High 70-100 Blood Urea Nitrogen 14 mg/dL N 6-24 Creatinine 0.97 mg/dL N 0.67-1.17 BUN/Creatinine Ratio 14.4 N 8-20 Calcium 9.2 mg/dL N 8.6-10.3 Egfr Non- 73.4 >60 Egfr 94.4 >60 2 Laboratory test 10/16/2017 [facility] B-Type 291 pg/mL High [address] [place] [address] Peptide BNP [phone] Magnesium 2.0 mg/dL N 1.9-2.7 4 Basic Metabolic Panel 10/03/2016 [facility] Sodium 135 mmol/L N 133-[address] [place] [address] [phone] Potassium 4.1 mmol/L N 3.5-5.0 Chloride 102 [...] 25 mg Copy Result to: CHUCK PAINTING ([id number]) 5 Because ethnic data is not always [...] (or dialysis) Procedures Date Code Description Status 09/04/2018 15669 EKG Tracing & Interpretation Completed 04/23/2018 97532 Inject/Drain Joint/Bursa Major W/O US Completed 01/29/2018 31080 EKG Tracing & Interpretation Completed 12/29/2017 26704 ECHO Transthoracic, Real-Time 2D With Doppler And Completed Color Flow 12/29/2017 12497 ECHO Transthoracic, Real-Time 2D With Doppler And Completed Color Flow 11/16/2017 14121 Inject/Drain Joint/Bursa Major W/O US Completed 09/15/2017 53032 EKG Tracing & Interpretation Completed 09/15/2017 45852 EKG Tracing & Interpretation Completed 09/12/2017 05908 EKG Tracing & Interpretation Completed 08/28/2017 84922 ECHO Transthorasic Realtime 2D W Doppler & Color Flow Completed Hosp 07/31/2017 94527 EKG Tracing & Interpretation Completed 02/28/2017 76631 ECHO Transthoracic, Real-Time 2D With Doppler And Completed Color Flow 02/28/2017 55396 ECHO Transthoracic, Real-Time 2D With Doppler And Completed Color Flow 01/09/2017 02497 Inject/Drain Joint/Bursa Major W/O US Completed 11/08/2016 41590 Inject/Drain Joint/Bursa Major W/O US Completed 09/06/2016 19688 ECHO Transthoracic, Real-Time 2D With Doppler And Completed Color Flow 08/17/2016 [id number] Diabetic Retinal Eye Exam Completed 08/09/2016 03351 EKG Tracing & Interpretation Completed 08/05/2016 43210 Stress Test Completed 08/05/2016 10454 Myocardial Perfusion Imaging Tomographic (Spect) Completed Multiple Studies 07/27/2016 90979 ECHO Transthoracic, Real-Time 2D With Doppler And Completed Color Flow 07/27/2016 34749 ECHO Transthoracic, Real-Time 2D With Doppler And Completed Color Flow 07/19/2016 12157 EKG Tracing & Interpretation Completed 06/14/2016 29570 Inject/Drain Joint/Bursa Major W/O US Completed 05/13/2016 98044 Diffusing Capacity Completed 05/13/2016 02891 Plethysmography Determination Lung Volumes & Per Completed Airway Resist 05/13/2016 61464 Pulmonary Function><Bronchodil Completed 10/19/2015 20307 EKG Tracing & Interpretation Completed 05/06/2015 94808 EKG Tracing & Interpretation Completed 04/27/2015 84071 EKG Tracing & Interpretation Completed 01/27/2015 50046 Stress Test Completed 01/27/2015 55558 Myocardial Perfusion Imaging Tomographic (Spect) Completed Multiple Studies 01/27/2015 07757 Myocardial Perfusion Imaging Tomographic (Spect) Completed Multiple Studies 01/13/2015 36255 ECHO Transthorasic Realtime 2D W Doppler & Color Flow Completed Hosp 10/17/2013 70418 ECHO Transthoracic, Real-Time 2D With Doppler And Completed Color Flow 09/20/2013 88569 EKG Tracing & Interpretation Completed 04/25/2013 51268 Stress Test Completed 04/25/2013 34754 Myocardial Perfusion Imaging Tomographic (Spect) Completed Multiple Studies Encounters Type Date Location Provider Dx Diagnosis Office Visit 08/23/2018 [facility] Samantha Liz, I71.2 Thoracic aortic 10:30a Of [employer] N.P. 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 shoulder M75.122 Complete rotatr-cuff tear/ruptr of left shoulder, not trauma Office Visit 06/13/2018 2:45p Orthopedic Luther Borja, S46.002A Unsp inj Services Of [place] musc/tend the C.M.A. rotator cuff of l shoulder, init Office Visit 04/23/2018 10:30a Orthopedic Luther Borja M75.102 Unsp rotatr- cuff Services Of [place] tear/ruptr of C.M.A. left shoulder, not trauma M75.52 Bursitis of left shoulder Office Visit 01/29/2018 4:20p [facility] Monica Polo, I50.42 Chronic combined Of Flavia M.DAquiles systolic and diastolic hrt fail I48.0 Paroxysmal atrial fibrillation I42.8 Other cardiomyopathies I71.2 Thoracic aortic aneurysm, without rupture I34.0 Nonrheumatic mitral (valve) insufficiency Office Visit 10/13/2017 [facility] Samantha SAquiles I42.9 Cardiomyopathy, 2:00p Cardiology Of Agusto, N.P. unspecified [employer] R94.31 Abnormal electrocardiogram [ECG] [EKG] I50.42 Chronic combined systolic and diastolic hrt fail I48.0 Paroxysmal atrial fibrillation Office Visit 09/18/2017 Pulmonology And Jeane J45.909 Unspecified asthma , 10:30a Sleep Services Of MD Vandana uncomplicated [employer] J98.4 Other disorders of lung Office Visit 09/15/2017 9:30a [facility] Samantha SAquiles I48.0 Paroxysmal atrial Of Flavia Liz, N.P. fibrillation I42.9 Cardiomyopathy, unspecified I50.42 Chronic combined systolic and diastolic hrt fail I34.0 Nonrheumatic mitral (valve) insufficiency Office Visit 09/12/2017 8:45a [facility] Monica Polo I48.0 Paroxysmal atrial Of Flavia [place] fibrillation I42.9 Cardiomyopathy, unspecified I50.42 Chronic combined systolic and diastolic hrt fail I34.0 Nonrheumatic mitral (valve) insufficiency R06.02 Shortness of breath Office Visit 08/29/2017 12:10p [facility] Dayday Young I48.0 Paroxysmal atrial Of Flavia Lora M.D. fibrillation I42.9 Cardiomyopathy, unspecified I50.9 Heart failure, unspecified Office Visit 08/29/2017 [facility] Cintia I48.91 Unspecified atrial 2:29p Assoc,tyra Gonzalez D.O. fibrillation Hospitalists I10 Essential (primary) hypertension E11.9 Type 2 diabetes mellitus without complications I42.8 Other cardiomyopathies Office Visit 08/28/2017 [facility] Cintia I48.91 Unspecified atrial 2:08p Assoc,tyra Gonzalez D.O. fibrillation Hospitalists I10 Essential (primary) hypertension E11.9 Type 2 diabetes mellitus without complications I42.8 Other cardiomyopathies Office Visit 08/28/2017 9:25a [facility] Dayday Young I50.9 Heart failure, Of Flavia Lroa M.D. 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 right knee Office Visit 03/14/2017 More Polo I71.2 Thoracic aortic 9:45a Cardiology Of [place] aneurysm, without [employer] rupture I35.1 Nonrheumatic aortic (valve) insufficiency I34.0 Nonrheumatic mitral (valve) insufficiency I42.8 Other cardiomyopathies I10 Essential (primary) hypertension Office Visit 01/09/2017 Orthopedic Suraj Nazario M17.11 Unilateral primary 1:30p Services Of MD Eul[place] osteoarthritis, right C.M.A. knee Office Visit 12/08/2016 More Polo I42.8 Other 1:15p Cardiology Of [place] cardiomyopathies [facility] I71.2 Thoracic aortic aneurysm, without rupture I35.1 Nonrheumatic aortic (valve) insufficiency Office Visit 11/08/2016 9:30a Orthopedic Suraj Nazraio M75.41 Impingement Services Of MD Eul[place] syndrome of right C.M.A. 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 hip Office Visit 08/25/2016 Pulmonology And Jeane R05 Cough 11:30a Sleep Services Of MD Vandana [facility] J45.998 Other asthma Office Visit 08/22/2016 Orthopedic Luther Borja, M16.12 Unilateral primary 9:00a Services Of [place] osteoarthritis, left C.M.A. hip M25.552 Pain in left hip Office Visit 08/09/2016 [facility] Monica Polo, I42.9 Cardiomyopathy, 1:00p Cardiology Of M.D. unspecified [employer] R94.31 Abnormal electrocardiogram [ECG] [EKG] R31.0 Gross hematuria Office Visit 07/19/2016 11:15a [facility] Monica Polo, I71.2 Thoracic aortic Of [employer] M.D. aneurysm, without rupture Z01.810 Encounter for preprocedural cardiovascular examination I10 Essential (primary) hypertension R31.0 Gross hematuria R94.31 Abnormal electrocardiogram [ECG] [EKG] Office Visit 06/07/2016 2:30p Orthopedic Hector Triplett, M75.121 Complete Services Of MD sampson C.M.A. 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 hypertension I71.2 Thoracic aortic aneurysm, without rupture I11.9 Hypertensive heart disease without heart failure Office Visit 09/10/2015 1:45p [facility] Nurse Visit I10 Essential (primary) Of [employer] IC hypertension Office Visit 05/06/2015 2:00p [facility] Monica I42.9 Cardiomyopathy , Of [employer] Christ, unspecified M.D. R07.9 Chest pain, unspecified I10 Essential (primary) hypertension I71.2 Thoracic aortic aneurysm, without rupture K21.0 Gastro-esophageal reflux disease with esophagitis R94.31 Abnormal electrocardiogram [ECG] [EKG] Office Visit 04/28/2015 12:33p [facility] Arinatomi Maldonado, R07.9 Chest pain , Assoc,pc N.P. unspecified Hospitalists I10 Essential (primary) hypertension E11.9 Type 2 diabetes mellitus without complications E78.5 Hyperlipidemia, unspecified Office Visit 04/27/2015 12:32p [facility] Arina Maldonado, R07.9 Chest pain , Assoc,pc N.P. unspecified Hospitalists I10 Essential (primary) hypertension E11.9 Type 2 diabetes mellitus without complications E78.5 Hyperlipidemia, unspecified Office Visit 02/09/2015 3:00p [facility] Monica Polo, 441.2 Aneurysm Of [facility] M.DAquiles Thoracic W/O Rupture 794.39 Cardiovascular Study Other Abnormal Office Visit 09/20/2013 [facility] Monica Polo, 794.39 Cardiovascular Study 9:45a Cardiology Of M.Hannah Other Abnormal [facility] Plan of Treatment Future Appointment(s):10/12/2018 9:00 am - Samantha iLz N.P. at [facility]10/03/2018 9:00 am - Traveling ECHO [facility] at [facility]10/04/2018 10:30 am - Suraj Esteban MD at Orthopedic [facility].09/28/2018 - Samantha Liz N.P.I48.0 Paroxysmal atrial fibrillationFollow up:reschedule echo OV LBS 2m after echoRecommendations: Continue Multaq 1 tab twice daily DECREASE Irbesartan to 1/2 tab by mouth at bedtime.I50.42 Chronic combined systolic (congestive) and diastolic ( jyazdcT01.2 Thoracic aortic aneurysm, without dejhcveZ61.0 Nonrheumatic mitral ( valve) insufficiency
--- OUTSIDE RECORDS SUMMARY | 2018-10-12 17:38 | XMS REPORT | Continuity of Care Document ---
:1930 External Reference #:[id number] Author Name Monika Coulter Care Team Providers Name Role Phone Chuck Painting MD Primary Care Physician Unavailable Payers Date Identification Numbers Payment Provider Subscriber Effective: 1996 Policy Number: [id number] Medicare Indio Estrada PayID: [id number] [address] [place] [address] Expires: 2017 Policy Number: [id number] [employer] Indio Estrada PayID: [id number] [address] [place] [address] Effective: 2016 Policy Number: [id number] [employer] Indio Estrada Expires: 2017 PayID: [id number] [address] [address] [place] [address] Effective: 2011 Policy Number: [id number] [employer] Indio Estrada Expires: 2016 PayID: [id number] [address] [address] [place] [address] Effective: 2017 Policy Number: [id number] [facility] Indio Estarda Group Number: [id number] [address] PayID: [id number] [place] [address] Advance Directives Description No Information Available Problems [...] teenage years, cigarettes/day) college Smoking Status Reviewed: 10/12/18 Light tobacco smoker less 1PPD throughout (10 or fewer teenage years, cigarettes/day) college Exercise Type/Frequency Exercises regularly Breathing exercise daily Exercise Type/Frequency Jogs 5 times a week Allergies, Adverse Reactions, Alerts Active Allergies Reaction Severity Comments Date NKDA 12/08/2016 Tree 10/19/2015 Pollen 10/19/2015 Inactive Allergies NKDA 09/18/2013 Medications Active Medications SIG Qnty Indications Ordering Date Provider Entresto take 1 tab by 60tabs I50.42 Samantha Liz, 10/12/2018 24-26mg mouth twice daily N.P. Tablets Spiriva Respimat 1 puff every day 12gm [...] M.D. monday and monday. Spironolactone 1 tablet by mouth 90tabs I50.42 Monica Polo, 09/12/2017 25mg monday, M.D. Tablets , monday and monday. (alternating with lasix) Cane Patients Choice Straight Cane 1units Suraj F 12/20/2016 MD Eulalia [facility] Breo Ellipta one inhalation 60units Lydia daily DEEPTHI Gibson 200-25mcg/Inh Aerosol [place] Vinegar 1 1/2 tsp in Unknown water daily Eliquis 1 tablet by mouth 180tabs Monica Polo, 2.5mg Tablets twice a day. M.D. blood thinner. Fish Oil 2 by mouth d Unknown 1000mg Capsules Mucinex ER one by mouth Unknown 600mg every 12 hours for cough as needed Align Probiotic daily Unknown 4mg Preservision Areds 2 po qd Russel De Guzman MD Obdulio Capsules Coq10 3 cap po daily Unknown 100mg Multivitamins 1 [...] every 30caps Unknown 20mg day Capsules DR Elke HFA 2 puffs by mouth 18units Unknown [...] 11/16/2016 (2.5mg/3ML) 0.083% daily as needed Nebulizer Cascade 3 1 po twice daily Unknown - 09/11/2017 [place] 1 by mouth daily Unknown - (pt not taking) 04/06/2017 Capsules Vitamin B12 1 by mouth every Unknown - 1000mcg day 09/18/2018 Tablets ER Saw Spearfish 1 by mouth po Unknown - 450mg daily 09/14/2017 Capsules Benzonatate take one or two Unknown - 100mg capsules every 8 09/18/2018 Capsules hours as needed for cough. Fluticasone 2 sprays each Unknown - Propionate nostril qd. 07/03/2018 50mcg/Act Suspension Ipratropium [place] spray 1-2 sprays Unknown - in each [...] Ipratropium 1 unit every 4 Unknown - [place]/Albuterol hours as needed 09/18/2018 Sulfate 0.5-2.5(3)mg/3ML Solution Bystolic 1/2 by mouth every 45tabs Monica Polo, - 5mg Tablets day M.D. 10/13/2017 Align 1 by mouth every 30caps Unknown - 4mg Capsules day 01/14/2015 Dymista 1 spray ea nostril Unknown - 137-50mcg/Act twice a day prn 04/06/2017 Suspension Irbesartan 1/2 tab by mouth 60tabs Monica Polo, - 150mg daily, hs M.D. 10/12/2018 Tablets Accu-Check Multiclix for fsbg's bid Unknown - [...] not Unknown - taking) 04/06/2017 200mcg Tablets Hkb-Byr-Rbfd-D daily Unknown - Tablets 09/10/2017 Breo Ellipta Inhale One puff Unknown - Into Lungs Once 08/22/2018 100-25mcg/Inh Aerosol Daily Medications Administered in Office Medication SIG Qnty Indications Ordering Provider Date Depomedrol 40MG Luther Borja M.D. 04/23/2018 Injection Depomedrol 40MG Suraj Esteban MD 11/16/2017 Injection Depomedrol 40MG Suraj Esteban MD 01/09/2017 Injection Depomedrol 40MG Suraj Esteban MD 11/08/2016 Injection Technetium TC 99M Phil Wiseman DO [facility] 08/05/2016 Tetrofosmin, Per Unit Dose Up To 40 Millicuries Injection Depomedrol 40MG Suraj Esteban MD 06/14/2016 Injection Technetium TC 99M Eduardo Rocha M.D., 01/27/2015 Tetrofosmin, Per Unit Dose [facility] Up To 40 Millicuries Injection Technetium TC 99M Monica Polo M.D. 01/27/2015 Tetrofosmin, Per Unit Dose Up To 40 Millicuries Injection Technetium TC 99M Monica Polo M.D. 04/25/2013 Tetrofosmin, Per Unit Dose Up To 40 Millicuries Injection Immunizations Description No Information Available Vital Signs Date Vital Result Comment 10/12/2018 8:54am Height 60 inches 5'0" Weight 161.00 lb with shoes Heart Rate 74 /min BP Systolic Sitting 118 mmHg lue reg cuff BP Diastolic Sitting 60 mmHg lue reg cuff BP Systolic Standing 124 mmHg lue reg cuff BP Diastolic Standing 64 mmHg lue reg cuff Respiratory Rate 18 /min BMI (Body Mass Index) 31.4 kg/m2 Ejection Fraction 35-40% cho. 10/03/18 10/04/2018 10:37am Height 60 inches 5'0" Heart [...] Result H/L Range Note Basic Metabolic 09/28/2018 [facility] Sodium 137 mmol/L N 135- [address] [place] [address] [phone] Potassium 4.6 mmol/L N 3.5-5.0 Chloride 103 mmol/L N 101-111 Co2 Carbon Dioxide 27 mmol/L N 22-32 Anion Gap 7 mmol/L N 2-11 Glucose 156 mg/dL High 70-100 Blood Urea Nitrogen 19 mg/dL N 6-24 Creatinine 1.08 mg/dL N 0.67-1.17 BUN/Creatinine Ratio 17.6 N 8-20 Calcium 9.2 mg/dL N 8.6-10.3 Egfr Non- 64.7 >60 Egfr 78.3 >60 1 Basic Metabolic 10/16/2017 [facility] Sodium 136 mmol/L Low 139-[address] [place] [address] [phone] Potassium 4.1 mmol/L N 3.5-5.0 Chloride 101 mmol/L N 101-111 Co2 Carbon Dioxide 29 mmol/L N 22-32 Anion Gap 6 mmol/L N 2-11 Glucose 137 mg/dL High 70-100 Blood Urea Nitrogen 14 mg/dL N 6-24 Creatinine 0.97 mg/dL N 0.67-1.17 BUN/Creatinine Ratio 14.4 N 8-20 Calcium 9.2 mg/dL N 8.6-10.3 Egfr Non- 73.4 >60 Egfr 94.4 >60 2 Laboratory test 10/16/2017 [facility] B-Type 291 pg/mL High [address] [place] [address] Peptide BNP [phone] Magnesium 2.0 mg/dL N 1.9-2.7 4 Basic Metabolic Panel 10/03/2016 [facility] Sodium 135 mmol/L N 133-[address] [place] [address] [phone] Potassium 4.1 mmol/L N 3.5-5.0 Chloride 102 [...] 25 mg Copy Result to: CHUCK PAINTING ([id number]) 5 Because ethnic data is not always [...] dialysis) Procedures Date Code Description Status 10/03/2018 21527 ECHO Transthoracic, Real-Time 2D With Doppler And Completed Color Flow 10/03/2018 89059 ECHO Transthoracic, Real-Time 2D With Doppler And Completed Color Flow 09/28/2018 02948 EKG Tracing & Interpretation Completed 09/04/2018 45796 EKG Tracing & Interpretation Completed 04/23/2018 04860 Inject/Drain Joint/Bursa Major W/O US Completed 01/29/2018 63328 EKG Tracing & Interpretation Completed 12/29/2017 67418 ECHO Transthoracic, Real-Time 2D With Doppler And Completed Color Flow 12/29/2017 81850 ECHO Transthoracic, Real-Time 2D With Doppler And Completed Color Flow 11/16/2017 42069 Inject/Drain Joint/Bursa Major W/O US Completed 09/15/2017 86004 EKG Tracing & Interpretation Completed 09/15/2017 30770 EKG Tracing & Interpretation Completed 09/12/2017 45337 EKG Tracing & Interpretation Completed 08/28/2017 65223 ECHO Transthorasic Realtime 2D W Doppler & Color Flow Completed Hosp 07/31/2017 62005 EKG Tracing & Interpretation Completed 02/28/2017 04084 ECHO Transthoracic, Real-Time 2D With Doppler And Completed Color Flow 02/28/2017 25331 ECHO Transthoracic, Real-Time 2D With Doppler And Completed Color Flow 01/09/201768485 Inject/Drain Joint/Bursa Major W/O US Completed 11/08/201609091 Inject/Drain Joint/Bursa Major W/O US Completed 09/06/2016 74916 ECHO Transthoracic, Real-Time 2D With Doppler And Completed Color Flow 08/17/2016 [id number] Diabetic Retinal Eye Exam Completed 08/09/2016 49533 EKG Tracing & Interpretation Completed 08/05/2016 31673 Stress Test Completed 08/05/2016 83978 Myocardial Perfusion Imaging Tomographic (Spect) Completed Multiple Studies 07/27/2016 25004 ECHO Transthoracic, Real-Time 2D With Doppler And Completed Color Flow 07/27/2016 72747 ECHO Transthoracic, Real-Time 2D With Doppler And Completed Color Flow 07/19/2016 29745 EKG Tracing & Interpretation Completed 06/14/201628332 Inject/Drain Joint/Bursa Major W/O US Completed 05/13/2016 32703 Diffusing Capacity Completed 05/13/2016 22989 Plethysmography Determination Lung Volumes & Per Completed Airway Resist 05/13/2016 77347 Pulmonary Function><Bronchodil Completed 10/19/2015 62829 EKG Tracing & Interpretation Completed 05/06/2015 66378 EKG Tracing & Interpretation Completed 04/27/2015 73627 EKG Tracing & Interpretation Completed 01/27/2015 52043 Stress Test Completed 01/27/2015 96940 Myocardial Perfusion Imaging Tomographic (Spect) Completed Multiple Studies 01/27/2015 30183 Myocardial Perfusion Imaging Tomographic (Spect) Completed Multiple Studies 01/13/2015 22839 ECHO Transthorasic Realtime 2D W Doppler & Color Flow Completed Hosp 10/17/2013 92173 ECHO Transthoracic, Real-Time 2D With Doppler And Completed Color Flow 09/20/2013 59985 EKG Tracing & Interpretation Completed 04/25/2013 29682 Stress Test Completed 04/25/2013 34594 Myocardial Perfusion Imaging Tomographic (Spect) Completed Multiple Studies Encounters Type Date Location Provider Dx Diagnosis Office Visit 09/28/2018 [facility] Samantha Liz, I48.0 Paroxysmal atrial 3:00p Of [employer] N.P. fibrillation I50.42 Chronic combined systolic and diastolic hrt fail I71.2 Thoracic aortic aneurysm, without rupture I34.0 Nonrheumatic mitral (valve) insufficiency Office Visit 08/23/2018 10:30a [facility] Samantha SAquiles I71.2 Thoracic aortic Of Flavia Liz N.P. 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 shoulder M75.122 Complete rotatr-cuff tear/ruptr of left shoulder, not trauma Office Visit 06/13/2018 2:45p Orthopedic Luther Borja S46.002A Unsp inj Services Of [place] musc/tend the C.M.A. rotator cuff of l shoulder, init Office Visit 04/23/2018 10:30a Orthopedic Luther Borja M75.102 Unsp rotatr- cuff Services Of [place] tear/ruptr of C.M.A. left shoulder, not trauma M75.52 Bursitis of left shoulder Office Visit 01/29/2018 4:20p [facility] Monica Polo, I50.42 Chronic combined Of Flavia [place] systolic and diastolic hrt fail I48.0 Paroxysmal atrial fibrillation I42.8 Other cardiomyopathies I71.2 Thoracic aortic aneurysm, without rupture I34.0 Nonrheumatic mitral (valve) insufficiency Office Visit 10/13/2017 [facility] Samantha SAquiles I42.9 Cardiomyopathy, 2:00p Cardiology Of Agusto N.P. unspecified [employer] R94.31 Abnormal electrocardiogram [ECG] [EKG] I50.42 Chronic combined systolic and diastolic hrt fail I48.0 Paroxysmal atrial fibrillation Office Visit 09/18/2017 Pulmonology And Jeane J45.909 Unspecified asthma , 10:30a Sleep Services Of MD Vandana uncomplicated [employer] J98.4 Other disorders of lung Office Visit 09/15/2017 9:30a [facility] Samantha S. I48.0 Paroxysmal atrial Of [employer] Agusto N.P. fibrillation I42.9 Cardiomyopathy, unspecified I50.42 Chronic combined systolic and diastolic hrt fail I34.0 Nonrheumatic mitral (valve) insufficiency Office Visit 09/12/2017 8:45a [facility] Monica Polo I48.0 Paroxysmal atrial Of Flavia [place] fibrillation I42.9 Cardiomyopathy, unspecified I50.42 Chronic combined systolic and diastolic hrt fail I34.0 Nonrheumatic mitral (valve) insufficiency R06.02 Shortness of breath Office Visit 08/29/2017 12:10p [facility] Dayday Young I48.0 Paroxysmal atrial Of Flavia Lora M.D. fibrillation I42.9 Cardiomyopathy, unspecified I50.9 Heart failure, unspecified Office Visit 08/29/2017 [facility] I48.91 Unspecified atrial 2:29p Assoc,tyra Gonzalez DAquilesOAquiles fibrillation Hospitalists I10 Essential (primary) hypertension E11.9 Type 2 diabetes mellitus without complications I42.8 Other cardiomyopathies Office Visit 08/28/2017 9:25a [facility] Dayday Young I50.9 Heart failure, Of Flavia Lora M.D. 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 knee Office Visit 01/09/2017 Orthopedic Suraj Nazario M17.11 Unilateral primary 1:30p Services Of MD [place] osteoarthritis, right C.M.A. knee Office Visit 12/08/2016 [facility] Monica Polo, I42.8 Other 1:15p Cardiology Of M.D. cardiomyopathies [employer] I71.2 Thoracic aortic aneurysm, without rupture I35.1 Nonrheumatic aortic (valve) insufficiency Office Visit 11/08/2016 9:30a Orthopedic Suraj Nazario M75.41 Impingement Services Of MD Eul[place] syndrome of right C.M.A. shoulder S46.011D Strain of musc/tend the rotator cuff of right shoulder, subs M19.011 Primary osteoarthritis, right shoulder Office Visit 10/12/2016 Orthopedic Luther Borja M16.12 Unilateral primary 9:45a Services Of MAquilesDAquiles osteoarthritis, left C.M.A. hip Office Visit 08/25/2016 Pulmonology And Jeane R05 Cough 11:30a Sleep Services Of MD Vandana [facility] J45.998 Other asthma Office Visit 08/22/2016 Orthopedic Luther Borja, M16.12 Unilateral primary 9:00a Services Of [place] osteoarthritis, left C.M.A. hip M25.552 Pain in left hip Office Visit 08/09/2016 [facility] Monica Polo, I42.9 Cardiomyopathy, 1:00p Cardiology Of M.D. unspecified [employer] R94.31 Abnormal electrocardiogram [ECG] [EKG] R31.0 Gross hematuria Office Visit 07/19/2016 11:15a [facility] Monica Polo, I71.2 Thoracic aortic Of [facility] M.D. aneurysm, without rupture Z01.810 Encounter for preprocedural cardiovascular examination I10 Essential (primary) hypertension R31.0 Gross hematuria R94.31 Abnormal electrocardiogram [ECG] [EKG] Office Visit 06/07/2016 2:30p Orthopedic Hector Triplett, M75.121 Complete Services Of MD cappstr-cuff C.M.A. tear/ruptr of r shoulder, not trauma M19.011 Primary osteoarthritis, right shoulder Office Visit 05/16/2016 2:00p Pulmonology And Sleep Jeane Ross MD R05 Cough Services Of [facility] K21.0 Gastro-esophageal reflux disease with esophagitis J30.9 Allergic rhinitis, unspecified J45.998 Other asthma Office Visit 12/15/2015 2:00p [facility] Era George, I10 Essential (primary) Of [employer] [place] hypertension I71.2 Thoracic aortic aneurysm, without rupture I42.9 Cardiomyopathy, unspecified I11.9 Hypertensive heart disease without heart failure Office Visit 12/01/2015 9:00a [facility] Era George, I10 Essential (primary) Of [employer] [place] hypertension I71.2 Thoracic aortic aneurysm, without rupture I42.9 Cardiomyopathy, unspecified R07.9 Chest pain, unspecified Office Visit 10/19/2015 3:30p [facility] Monica Polo, I10 Essential (primary) Of [employer] M.D. hypertension I71.2 Thoracic aortic aneurysm, without rupture I11.9 Hypertensive heart disease without heart failure Office Visit 09/10/2015 1:45p [facility] Nurse Visit I10 Essential (primary) Of [facility] IC hypertension Office Visit 05/06/2015 2:00p [facility] Monica I42.9 Cardiomyopathy , Of [employer] [place], unspecified M.D. R07.9 Chest pain, unspecified I10 Essential (primary) hypertension I71.2 Thoracic aortic aneurysm, without rupture K21.0 Gastro-esophageal reflux disease with esophagitis R94.31 Abnormal electrocardiogram [ECG] [EKG] Office Visit 04/28/2015 12:33p [facility] Arina Maldonado, R07.9 Chest pain , Assoc,pc N.P. unspecified Hospitalists I10 Essential (primary) hypertension E11.9 Type 2 diabetes mellitus without complications E78.5 Hyperlipidemia, unspecified Office Visit 04/27/2015 12:32p [facility] Arina Maldonado, R07.9 Chest pain , Assoc,pc N.P. unspecified Hospitalists I10 Essential (primary) hypertension E11.9 Type 2 diabetes mellitus without complications E78.5 Hyperlipidemia, unspecified Office Visit 02/09/2015 3:00p [facility] Monica Polo, 441.2 Aneurysm Of [employer] M.D. Thoracic W/O Rupture 794.39 Cardiovascular Study Other Abnormal Office Visit 09/20/2013 [facility] Monica Polo, 794.39 Cardiovascular Study 9:45a Cardiology Of T[place]ka. Other Abnormal [facility] Plan of Treatment Future Appointment(s):01/15/2019 9:45 am - Monica Polo M.D. at [facility]11/16/2018 9:00 am - Samantha Liz N.P. at [facility]10/12/2018 - Samantha Liz NAlpeshI50.42 Chronic combined systolic (congestive) and diastolic (congesNew Medication:Entresto 24-26 mg - take 1 tab by mouth twice dailyComments:Your heart function is slightly lower 35 -40%. It was 40-45% last summer. Your aortic valve and mitral valve are leaky.The pressure in your pulmonary artery is slightly up and could be from your atrial fibrillation or from asthma.Follow up:LACY Singh 1 mo OV 01/2019 LBSRecommendations:STOP irbesartan START Entresto 1 tab twice daily Have labs drawn in 10 days. If you have any increase in dizziness let us know.I48.0 Paroxysmal atrial fibrillationRecommendations:Continue multaq and eliquis.I34.0 Nonrheumatic mitral (valve) qwkkmbhacweayK75.2 Thoracic aortic aneurysm, without rupture
--- NOTE | 2018-10-12 17:53 | ED ---
Shortness of Breath - HPI Summary HPI Summary: An 88 y/o male accompanied by his daughter presents to [facility] with a chief complaint of SOB today. He also reports cough and wheezing and states that he had an asthma attack a few days ago. His SOB is worsened with movement. He claims that earlier he had pain in the left side of his chest and on his right arm above his elbow, but he denies any current CP or arm pain. He also denies fever, chills, erythema of eyes, sore throat, abdominal pain, N/V, dysuria, hematuria, myalgia, edema, rash, or dizziness. He reports sleeping on one pillow at night and not gaining any weight. Per daughter, the patient has a Hx of CHF and was at 25% capacity which was increased to 40% after seeing Dr. Polo and going to physical therapy. She notes that the patient was going to the police radio dispatcher instead of Dr. Polo. He was given Spiriva but has not filled prescriptions for his nebulizer. He has a Hx of asthma and type II DM but the patient's daughter is concerned that he is not taking his medication properly. 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 - Allergy/Home Medications Allergies/Adverse Reactions: Allergies Allergy/AdvReac Type Severity Reaction Status Date / Time No Known Allergies Allergy Verified 10/12/18 17:25 PMH/Surg Hx/FS Hx/Imm Hx Endocrine/Hematology History: Reports: Hx Diabetes - 2 Denies: Hx Thyroid Disease Cardiovascular History: Reports: Hx Hypercholesterolemia, Hx Hypertension - MILD ON MEDICATION, 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", Other Cardiovascular Problems/Disorders Denies: Hx Pacemaker/ICD Respiratory History: Reports: Hx Asthma, Hx Chronic Obstructive Pulmonary Disease (COPD), Hx Seasonal Allergies GI History: Reports: Hx Gastroesophageal Reflux Disease, Hx Irritable Bowel Denies: Hx Ulcer, Other GI Disorders History: Reports: Hx Benign Prostatic Hyperplasia, Hx Kidney Stones, Other Problems/Disorders - BPH Denies: Hx Dialysis, Hx Renal Disease Musculoskeletal History: Reports: Hx Arthritis - LOWER BACK, HIPS, Hx Osteoporosis Sensory History: Reports: Hx Cataracts, Hx Contacts or Glasses Denies: Hx Hearing Aid, Hx Hearing Problem Opthamlomology History: Reports: Hx Cataracts, Hx Contacts or Glasses Neurological History: Denies: Hx Migraine, Hx Spinal Cord Injury, Hx Transient Ischemic Attacks ( TIA) Psychiatric History: Denies: Hx Panic Disorder - Surgical History Surgery Procedure, Year, and Place: T&A 17 YRS OF AGE- [facility] [place]. APPENDECTOMY 2006- [place], [place]. RIGHT INGUINAL HERNIA REPAIR - [facility]. VASECTOMY - DR JUAREZ'S OFFICE. CATARACTS. TOOTH EXTRACTION. EYE LID SURGERY-NO METAL Hx Anesthesia Reactions: No Infectious Disease History: No Infectious Disease History: Reports: Hx Shingles - 4 years ago Denies: Hx Hepatitis, Hx Human Immunodeficiency Virus (HIV), Hx of Known/ Suspected MRSA, Traveled Outside the in Last 30 Days - Family History Known Family History: Positive: Hypertension, Diabetes - Social History Alcohol Use: Daily Alcohol Amount: 1 BEER OR 1 GLASS WINE DAILY Substance Use Type: Reports: None Hx Tobacco Use: No Smoking Status (MU): Former Smoker Type: Cigarettes Amount Used/How Often: 1/4-1/2 PPD FOR 20 YRS Length of Time of Smoking/Using Tobacco: 10 Have You Smoked in the Last Year: No Review of Systems Negative: Fever, Chills Negative: Erythema Negative: Sore Throat Positive: Chest Pain - 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 (-) Distressed Skin: Warm, Dry HENT: Normocephalic; Atraumatic Eyes: Conjunctiva normal Neck: Musculoskeletal ROM normal neck. (-) JVD, (-) Stridor, (-) Tracheal deviation Cardio: Rhythm regular, rate normal, Heart sounds normal; Intact distal pulses; The pedal pulses are 2+ and symmetric. Radial pulses are 2+ and symmetric. (-) Murmur Pulmonary/Chest wall: Effort normal. (-) Respiratory distress, (-) Wheezes, (-) Rales, (+) bibasilar crackles Abd: Soft, (-) tenderness, (-) Distension, (-) Guarding, (-) Rebound Musculoskeletal: (-) Edema Lymph: (-) Cervical adenopathy Neuro: Alert, Oriented x3 Psych: Mood and affect Normal Triage Information Reviewed: Yes Vital Signs On Initial Exam: Initial Vitals Temp Pulse Resp BP Pulse Ox 97.4 F 104 20 146/75 95 10/12/18 17:17 10/12/18 17:17 10/12/18 17:17 10/12/18 17:17 10/12/18 17:17 Vital Signs Reviewed: Yes Diagnostics - Vital Signs Vital Signs Temp Pulse Resp BP Pulse Ox 10/12/18 17:17 97.4 F 104 20 146/75 95 - Laboratory Result Diagrams: 10/12/18 17:52 10/12/18 17:52 Lab Statement: Any lab studies that have been ordered have been reviewed, and results considered in the medical decision making process. - Radiology CXR Radiology Interpretation Completed By: Radiologist Summary of Radiographic Findings: 1. SMALL BIBASILAR INFILTRATES. 2. FINDINGS CONSISTENT WITH COPD. ED physician has reviewed this imaging report. Re-Evaluation - Re-Evaluation First Eval Re-Evaluation Time: 19:53 Change: Improved Comment: CP free after NTG. CP started in left arm and migrated up to chest mid afternoon and has been constant since then. Course/Dx - Course Course Of Treatment: An 88 y/o male accompanied by his daughter presents to [facility] with a chief complaint of SOB today. He also reports cough and wheezing and states that he had an asthma attack a few days ago. His SOB is worsened with movement. He claims that earlier he had pain in the left side of his chest and on his right arm above his elbow, but he denies any current CP or arm pain. The physical exam revealed bibasilar crackles. CXR impression: 1. SMALL BIBASILAR INFILTRATES. 2. FINDINGS CONSISTENT WITH COPD. In the ED course the patient was given Lasix IV and Zithromax IV. Bloodwork and chemistries obtained. Lactic acid of 2.3 at 17:52. Case discussed with Dr. Cordero, hospitalist , who accepted the patient for admission. The patient is agreeable with this plan. - Diagnoses Provider Diagnoses: CHF exacerbation, Community acquired pneumonia - Physician Notifications Discussed Care of Patient With: Geovany Cordero Time Discussed With Above Provider: 18:45 Instructed by Provider To: Admit As Inpatient - Critical Care Time Critical Care Time: 75-104 min Discharge - Sign-Out/Discharge Documenting (check all that apply): Patient Departure - admit Patient Received Moderate/Deep Sedation with Procedure: No - Discharge Plan Condition: Fair Disposition: ADMITTED TO [facility] Referrals: Chuck Jennings MD [Primary Care Provider] - (2-3 days) Additional Instructions: RETURN TO THE EMERGENCY DEPARTMENT FOR CHANGING OR WORSENING SYMPTOMS - Attestation Statements Document Initiated by Scribe: Yes Documenting Scribe: Diaz Chacon Provider For Whom Scribe is Documenting (Include Credential): Last Alford MD Scribe Attestation: Diaz Deal, scribed for Last Alford MD on 10/12/18 at 2007.
[2018-10-12 18:03] LABS: ABS Basophils 0.1 10^3/ul (0-0.2); ABS Eosinophils 0.2 10^3/ul (0-0.6); ABS Lymphocytes 1.5 10^3/ul (1.0-4.8); ABS Neutrophils 11.5 10^3/ul (1.5-7.7); Eosinophil % 1.1 %; Hematocrit 37 % (42-52); Hemoglobin 12.3 g/dL (14.0-18.0); Lymphocyte % 10.3 %; Mean Corpuscular HGB Conc 33 g/dL (31-36); Mean Corpuscular Hemoglobin 30 pg (27-31); Mean Corpuscular Volume 89 fL (80-94); Mean Platelet Volume 9.5 fL (7.4-10.4); Platelet Count 261 10^3/uL (150-450); Red Blood Count 4.15 10^6 /uL (4.18-5.48); Red Cell Distribution Width 16 % (10.5-15); White Blood Count 14.2 10^3/uL (3.5-10.8)
[2018-10-12 18:19] LABS: Troponin I 0.03 ng/mL (<0.04)
[2018-10-12 18:20] LABS: Albumin 4.6 g/dL (3.2-5.2); Albumin/Globulin Ratio 1.6 (1-3); BUN/Creatinine Ratio 14.5 (8-20); Calcium 9.8 mg/dL (8.6-10.3); EGFR African American 76.6 (>60); EGFR Non-African American 63.3 (>60); Globulin 2.9 g/dL (2-4); Potassium 4.3 mmol/L (3.5-5.0); Total Bilirubin 0.7 mg/dL (0.2-1.0); Total Protein 7.5 g/dL (6.4-8.9)
[2018-10-12] MEDS ORDERED: Azithromycin 500 mg/250 ml NS 500 MG/250 ML BAG IVPB ONE (18:54)
[2018-10-12] MEDS ORDERED: cefTRIAXone(*) 1 GM in NS 0.9% 50 ML* 50 ML IVPB ONE (18:54)
[2018-10-12] MEDS ORDERED: Furosemide IV* 10 MG/ML VIAL (40 MG) IV SLOW PU ONE (19:00)
[2018-10-12] MEDS ORDERED: Aspirin 81 mg CHEW TAB* 81 MG TAB.CHEW PO ONE (19:04)
[2018-10-12] MEDS ORDERED: Nitroglycerin TAB 0.4 MG* 0.4 MG TAB SL ONE (19:04)
[2018-10-12] MEDS ORDERED: Nitroglycerin TAB 0.4 MG* 0.4 MG TAB ONE (19:05)
[2018-10-12] MEDS ORDERED: Aspirin 81 mg CHEW TAB* 81 MG TAB.CHEW ONE (19:05)
[2018-10-12] MEDS ORDERED: Nitro 2% OINT* (Nitroglycerin) 1 INCH/PAK PAK TOPICAL ONE (19:49)
[2018-10-12] MEDS ORDERED: Ondansetron INJ* 2 MG/ML VIAL IV PRN (21:11)
[2018-10-12] MEDS ORDERED: Nitroglycerin TAB 0.4 MG* 0.4 MG TAB SL PRN (21:11)
[2018-10-12] MEDS ORDERED: Acetaminophen TAB* 325 MG PO PRN (21:11)
[2018-10-12] MEDS ORDERED: Albuterol/Ipratropium NEB.SOL* Albuterol 2.5 MG/Ipratropium 0.5 MG 3 ML INH PRN (21:16)
[2018-10-12] MEDS: Dronedarone TAB* 400 MG PO SCH (23:25)
--- NOTE | 2018-10-13 01:17 | HP ---
CC: Dr. Jennings; Dr. Monica Polo. * ADMISSION HISTORY AND PHYSICAL: DATE OF ADMISSION: 10/12/18 PRIMARY CARE DOCTOR: Dr. Jennings. MY ATTENDING WHILE IN THE HOSPITAL: Dr. Alejandro Cordero.* (DICTATED BY LUIS MAGUIRE) OUTPATIENT METALIZING MACHINE OPERATOR AUTOMATIC: Dr. Monica Polo. CHIEF COMPLAINT: Shortness of breath x1 week. HISTORY OF PRESENT ILLNESS: Mr. 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 He states that the cough was initially very productive and then became less so as time went on and now is only intermittently productive of green sputum, but he does still cough relatively frequently. The patient has a poor recollection of events, but states that approximately a week ago he began to have worsening dyspnea on exertion, particularly with playing brass instruments. He found he is practically unable to do so. The patient went to his senior ui ux designer, was diagnosed with an asthma exacerbation, but told at that time he did not have any wheezing. The patient was given a shot of hydrocortisone and was prescribed Breo and Spiriva. The patient did not feel any improvement with this. The patient states he has eaten several very high salt meals in the last week, particularly soups from restaurants which he states are excessively salty, they do use sea salt. The patient denies swelling in his legs. The patient does have significant orthopnea. The patient went to see his salesperson pianos and organs in the morning of 10/12/18 , and at that time, he was feeling well. Did mention dyspnea on exertion to them. The patient then began to feel worse throughout the day. At some point during the day, the patient began to develop chest pain on his left side, which was reproducible with palpation, worse with movement of his arm and worse with coughing but not worse with breathing. The patient states it was not worse with exertion. The patient states that at his salesperson pianos and organs's office he was prescribed tadalafil, which he describes as tadalafil, but cannot explain why he was prescribed this. His records say he was prescribed Entresto, but he does not remember this at all. The patient went to again see his senior ui ux designer, and due to chest pain, was referred to the emergency department for further evaluation. In the emergency department, the patient continued to have chest pain and was given nitroglycerin and started on nitro patch with almost complete resolution of his chest pain, though he cannot state this has occurred after the nitroglycerin or occurred on its own. The patient states that the pain still does come back when he presses on his chest and moves his arm. The patient states he is on a diuretic, but does not know the name of it, does not know how frequently he takes it. The patient states he does urinate frequently. The patient did not remember that his recent echocardiogram showed a decreased ejection fraction. The patient had per record an abnormal stress test without ischemia, but decreased EF most recently in 2017. The patient had cardiac MRI in 2017 as well, which showed no evidence of infiltrative disease. The patient had catheterization in 2005, which showed normal coronary arteries. The patient in the emergency department was given Lasix, nitroglycerin, antibiotics, aspirin , and we were asked to evaluate the patient for admission to the hospital. The patient denies fevers and chills. PAST MEDICAL HISTORY: Heart failure, reduced ejection fraction with EF 30% to 35% , nonischemic cardiomyopathy, diabetes mellitus type 2, COPD/asthma, thoracic aortic aneurysm, macular degeneration, paroxysmal atrial fibrillation. PAST SURGICAL HISTORY: Eyelid surgery, appendectomy, inguinal hernia repair, tonsillectomy, "[employer] prostate surgery." MEDICATIONS: As per cardiology note from earlier today. 1. Spiriva 1 puff daily. 2. Metoprolol succinate 12.5 mg p.o. daily. 3. Multaq 400 mg p.o. twice a day. 4. Furosemide 20 mg 1 tab by mouth Monday, Monday, Monday. 5. Spironolactone 25 mg on the days not taking the furosemide. 6. Ventolin inhaler 1 puff 4 times a day as needed. 7. Omeprazole 10 mg p.o. daily. 8. Metformin ER 500 mg p.o. daily. 9. Cetirizine 10 mg p.o. daily. 10. Cinnamon 1000 mg p.o. daily. 11. Turmeric 500 mg p.o. daily. 12. Melatonin 5 mg p.o. by mouth at bedtime. 13. Multivitamin 1 tab p.o. daily. 14. CoQ10 300 mg p.o. daily. 15. PreserVision 2 tablets p.o. daily. 16. Align probiotic 4 mg p.o. daily. 17. Mucinex 600 mg p.o. b.i.d. 18. Fish oil 2000 mg p.o. daily. 19. Eliquis 2.5 mg p.o. twice a day. 20. Breo Ellipta 225 one halation daily. 21. Irbesartan 75 mg p.o. daily. ALLERGIES: None. FAMILY HISTORY: The patient's mother at 104 of natural causes, she had heart disease. The patient's father of coronary artery disease and Alzheimer's at 74. The patient had a brother who of lung cancer, a brother who of thyroid cancer. SOCIAL HISTORY: The patient smoked in the remote past when he was in the [employer]. The patient drinks 1 alcoholic beverage a night. The patient denies illicit drug use. 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 The patient is x2 and has 5 children. The patient's surrogate decision maker will be his daughter Annika. REVIEW OF SYSTEMS: A 14-point review of systems were reviewed, negative except as noted above in the HPI. PHYSICAL EXAMINATION GENERAL: The patient is an 88-year-old male who appears younger than stated age , sitting comfortably in bed in no acute distress. VITAL SIGNS: Temperature 97.4, pulse rate 98, respiratory rate 27, oxygen saturation 96% on room air, blood pressure 147/78. HEENT: Head: Normocephalic, atraumatic. Sclerae anicteric. No conjunctival injection. Nasal mucosa moist. Oral mucosa moist. No pharyngeal erythema, discharge, or exudate. NECK: Supple, nontender. No lymphadenopathy. No carotid bruit auscultated. No JVD. RESPIRATORY: Clear to auscultation bilaterally. No wheezes, rales or rhonchi. Good air exchange bilaterally. CARDIAC: Tachycardic. No clicks, murmurs, gallops or rubs. Pulse is 2+ in the dorsalis pedis, posterior tibialis, and radial areas. Left-sided chest pain reproducible with palpation, worse with passive movement of the left arm. ABDOMEN: Soft, nontender, nondistended. Bowel sounds present. Normoactive in all 4 quadrants. No hepatosplenomegaly. No abdominal bruits auscultated. No hepatojugular reflux. GENITOURINARY: No suprapubic or CVA tenderness. SKIN: Clean, dry, intact. No rash NEUROLOGIC: Cranial nerves II through XII intact. No focal deficits. Alert and oriented x3. PSYCHIATRIC: Pleasant and cooperative. DIAGNOSTIC STUDIES/LAB DATA: White blood cell count 14.22, hemoglobin 12.3, platelet count 261. Sodium 135, potassium 4.3, chloride 99, carbon dioxide 26, anion gap 10, BUN 16, creatinine 1.1, glucose 135, lactic acid 2.3, calcium 9.8 , bilirubin 0.7, AST 34, ALT 43, alkaline phosphatase 53, troponin I 0.03, BNP greater than 1300, protein 0.5, albumin 4.6, globulin 2.9. Studies: Chest x-ray read as small bibasilar infiltrates, finding consistent with COPD. Electrocardiogram shows normal sinus rhythm, left axis deviation, left ventricular hypertrophy, ST segment depression in the lateral leads at 1 millivolt in V5 and V6, worse than previous exam. QTc shows 0429, heart rate of 86. Repeat EKG shows possible slight improvement in the lateral ST depression, T-wave inversions are possibly worse. ASSESSMENT AND PLAN/IMPRESSION: Mr. Estrada is an 88-year-old male with past medical history significant for heart failure, reduced ejection fraction due to nonischemic cardiomyopathy, diabetes mellitus type 2, chronic obstructive pulmonary disease/asthma, paroxysmal atrial fibrillation, who presents to the emergency department with worsening shortness of breath x1 week. The patient has symptoms consistent with heart failure exacerbation, also has bibasilar infiltrates on exam, white blood cell count, cough, elevated lactic acid and tachycardia consistent with community acquired pneumonia. The patient will be admitted to the hospital and treated for heart failure exacerbation and pneumonia. 1. Shortness breath. The patient's shortness of breath is likely multifactorial. The patient has bibasilar infiltrates. It is possible these are residual from a pneumonia the patient may have had earlier this month when he had worse cough and sputum production. The patient currently has white blood cell count but received cortisone at his senior ui ux designer 2 days ago, making this difficult to interpret. The patient received antibiotics in the emergency department, this will be continued. The patient has a BNP greater than 1300. The patient was prescribed Entresto, but has not yet picked up this prescription and has no idea what it is. It is unlikely that his BNP elevation is due to sacubitril. The patient has been taking low doses of diuretics at home. The patient feels severely short of breath with exertion. We will treat the patient with IV Lasix 10 mg b.i.d., monitor daily weights, strict I and O' s. The patient's blood pressure is under good control at this time. 2. Chest pain. The patient's chest pain has atypical features being reproducible with palpation, worse with movement of his left arm, worse with coughing, but the patient's pain did go away with nitroglycerin, unclear clinical finding. However, the patient does have ST segment depression in his lateral leads, which appeared to be chronic, appeared to be worse when he has chest pain and better when it is resolved, though again this is difficult to interpret. The patient will be continued on nitroglycerin. The patient will have his beta-sly increased. The patient's troponins were initially negative. We will trend these x3. The patient was given aspirin. The patient will be continued on aspirin a day. The patient recently had a normal outpatient stress test. Inpatient stress test, if the patient continues to have chest pain, should be considered. Observation of chest pain without troponin elevation is reassuring that this does not represent acute coronary syndrome. 3. Asthma/chronic obstructive pulmonary disease. The patient was diagnosed with asthma and chronic obstructive pulmonary disease exacerbation earlier this week. The patient is not wheezing now. It is possible the patient was adequately treated for this. If the patient continues to wheeze, steroids should be considered; however, the patient will be placed on inhalers as needed at this time. The patient will be continued on his home inhalers. 4. Paroxysmal atrial fibrillation. Continue the patient's dronedarone and Eliquis, increase the patient's metoprolol for tachycardia and chest pain. 5. FEN: The patient will have a heart healthy diet without caffeine. The patient appears to be in congestive heart failure exacerbation, will not be given fluids. 6. Lactic acidosis. The patient's lactic acid is slightly elevated. The patient does have an elevated white blood cell count, tachycardia, and possible pneumonia. With the elevated lactic acid, he meets criteria for severe sepsis. The patient is not hypotensive. The patient does not need vasopressors. The patient's lactic acid normalized. The patient is perfusing well. The patient is not in septic shock. Please consider this to be patient's severe sepsis reassessment note. 7. DVT prophylaxis: The patient is to continue Eliquis. 8. Disposition: The patient will be admitted under observation to the hospital. TIME SPENT: Approximately 60 minutes was spent on the admission of this patient , 30 of which was spent [id number] with the patient obtaining history and physical and discussing treatment plan. This plan was discussed with my attending Dr. Alejandro Cordero, and he is in agreement. LUIS MAGUIRE [id number]/CPS #: [id number] [facility]
[2018-10-13 06:06] LABS: ABS Basophils 0.1 10^3/ul (0-0.2); ABS Eosinophils 0.1 10^3/ul (0-0.6); ABS Lymphocytes 1.3 10^3/ul (1.0-4.8); ABS Monocytes 0.8 10^3/ul (0-0.8); ABS Neutrophils 5.8 10^3/ul (1.5-7.7); Eosinophil % 1.7 %; Hematocrit 34 % (42-52); Hemoglobin 11.3 g/dL (14.0-18.0); Lymphocyte % 16.3 %; Mean Corpuscular HGB Conc 33 g/dL (31-36); Mean Corpuscular Hemoglobin 30 pg (27-31); Mean Corpuscular Volume 89 fL (80-94); Mean Platelet Volume 9.5 fL (7.4-10.4); Platelet Count 241 10^3/uL (150-450); Red Blood Count 3.81 10^6 /uL (4.18-5.48); Red Cell Distribution Width 15 % (10.5-15); White Blood Count 8.2 10^3/uL (3.5-10.8)
[2018-10-13 06:22] LABS: BUN/Creatinine Ratio 14.8 (8-20); EGFR African American 78.3 (>60); EGFR Non-African American 64.7 (>60); HDL Cholesterol 57.9 mg/dL; Magnesium 2.1 mg/dL (1.9-2.7); Potassium 3.9 mmol/L (3.5-5.0)
[2018-10-13] MEDS: Tiotropium CAP.INH* CAP.INH/18 MCG (USE ORDER SET !) INH SCH (07:36)
[2018-10-13] MEDS: Fluticasone/Vilanterol MDI(NF) 200/25 MDI INH SCH ×2 (07:38→07:39)
[2018-10-13 07:53] LABS: C Reactive Protein 116.01 mg/L (<8.01)
[2018-10-13] MEDS ORDERED: IRBESARTAN 150 MG PO SCH (09:00)
[2018-10-13] MEDS ORDERED: Spiriva Inhaler DEVICE* 1 EACH DEVICE INH ONE (09:00)
[2018-10-13] MEDS: Furosemide IV* 10 MG/ML VIAL (40 MG) IV SLOW PU SCH ×2 (11:01→17:22)
[2018-10-13] MEDS: Pantoprazole TAB * 40 MG TAB PO SCH (11:02)
[2018-10-13] MEDS: Apixaban* 2.5 MG TAB PO SCH ×2 (11:02→21:19)
[2018-10-13] MEDS: Dronedarone TAB* 400 MG PO SCH ×2 (11:02→17:22)
[2018-10-13] MEDS: CMCS:OMEGA-3 FATTY ACIDS (NF) 1,000 MG CAP PO SCH (11:02)
[2018-10-13] MEDS: Multivitamins/Minerals TAB PO SCH (11:02)
[2018-10-13] MEDS: Losartan TAB* 25 MG PO SCH (11:02)
[2018-10-13] MEDS: Aspirin EC TAB* 81 MG TAB.EC PO SCH (11:03)
[2018-10-13] MEDS: Metformin ER (NF) 500 MG TAB PO SCH (11:03)
--- NOTE | 2018-10-13 13:43 | PN ---
Subjective Date of Service: 10/13/18 Interval History: Pt still feeling that his lungs are "full of something", breathing is better though Objective Active Medications: Acetaminophen (Tylenol Tab*) 650 mg PO Q6H PRN PRN Reason: FEVER/PAIN Albuterol/Ipratropium (Duoneb (Albuterol 2.5 Mg/Ipratropium 0.5 Mg)) 1 neb INH Q4H PRN PRN Reason: sob Apixaban (Eliquis*) 2.5 mg PO BID [facility] Last Admin: 10/13/18 11:02 Dose: 2.5 mg Aspirin (Aspirin Ec Tab*) 81 mg PO QAM [facility] Last Admin: 10/13/18 11:03 Dose: 81 mg Atorvastatin Calcium (Lipitor*) 40 mg PO 2100 [facility] Dronedarone (Multaq Tab*) 400 mg PO BID WITH MEALS [facility] Last Admin: 10/13/18 11:02 Dose: 400 mg Fish Oil (Fish Oil (Nf)) 1,000 mg PO DAILY [facility]; Protocol Last Admin: 10/13/18 11:02 Dose: 1,000 mg Fluticasone/Vilanterol (Breo Ellipta Mdi 200/25(Nf)) 1 puff INH DAILY [facility] Last Admin: 10/13/18 07:39 Dose: Not Given Furosemide (Lasix Iv*) 20 mg IV SLOW PU 0800,1700 [facility] Last Admin: 10/13/18 11:01 Dose: 20 mg Azithromycin 250 mg/ Sodium (Chloride) 250 mls @ 250 mls/hr IVPB Q24H [facility] Ceftriaxone Sodium 1 gm/ (Sodium Chloride) 50 mls @ 200 mls/hr IVPB Q24H [facility] Losartan Potassium (Cozaar Tab*) 25 mg PO QAM [facility] Last Admin: 10/13/18 11:02 Dose: 25 mg Metformin HCl (Metformin Er (Nf)) 500 mg PO DAILY [facility] Last Admin: 10/13/18 11:03 Dose: Not Given Metoprolol Succinate (Toprol Xl Tab*) 25 mg PO BEDTIME [facility] Multivitamins/Minerals (Theragran/Minerals Tab*) 1 tab PO QAM [facility] Last Admin: 10/13/18 11:02 Dose: 1 tab Nitroglycerin (Nitroglycerin Tab 0.4 Mg*) 0.4 mg SL Q5M PRN PRN Reason: ANGINA Ondansetron HCl (Zofran Inj*) 4 mg IV Q6H PRN PRN Reason: NAUSEA Pantoprazole Sodium (Protonix Tab*) 40 mg PO DAILY [facility] Last Admin: 10/13/18 11:02 Dose: 40 mg Tiotropium Blakes[place] (Spiriva Cap.Inh*) 1 cap INH DAILY [facility] Last Admin: 10/13/18 07:36 Dose: 1 cap Vital Signs - 8 hr 10/13/18 10/13/18 10/13/18 07:12 08:00 08:20 Temperature 97.8 F Pulse Rate 85 88 Respiratory 16 20 Rate Blood Pressure 107/66 (mmHg) O2 Sat by Pulse 93 Oximetry Oxygen Devices in Use Now: None Appearance: 88 yo M in nAD, aAOx3 Eyes: No Scleral Icterus, PERRLA Ears/Nose/Mouth/Throat: NL Teeth, Lips, Gums, Mucous Membranes Moist Neck: NL Appearance and Movements; NL JVP, Trachea Midline Respiratory: Symmetrical Chest Expansion and Respiratory Effort, - - rhonchi at b/l bases Cardiovascular: NL Sounds; No Murmurs; No JVD, RRR Abdominal: NL Sounds; No Tenderness; No Distention Lymphatic: No Cervical Adenopathy Extremities: No Edema, No Clubbing, Cyanosis Skin: No Rash or Ulcers, No Nodules or Sclerosis Neurological: Alert and Oriented x 3, NL Muscle Strength and Tone Result Diagrams: 10/13/18 05:56 10/13/18 05:56 Assess/Plan/Problems-Billing Assessment: 88 yo M with h/o DM, HTN, nonischemic CM, EF 30%, mod MR , chronic systolic cHF(on Aldactone QOD alternating with Lasix QOD) presents with cough and SOB - Patient Problems (1) CHF (congestive heart failure) Comment: exacebatrion of chronic sytolic CHF Echo on 10/03/18 showed apical wall motion abn, mod MR, EF 35-40% Pt is unsure if he was taking his diuretics. As per daughter present in room - pt had been forgetful. As per med record from DR. Polo's-pt was due to have his Aldactone prescribed again this August. He does not remeber taking Lasix either. will cont IV Lasix x today and start Home meds in AM. Will need VNS at d/c to check his meds at home (2) Pneumonia Comment: community acquired cont Azithro/Ceftriaxone (3) COPD (chronic obstructive pulmonary disease) Comment: No signs of exacerbation. Continue spiriva and prn albuterol (4) HTN (hypertension) Comment: BP is under good control. Continue current medication regimen. (5) Type 2 diabetes mellitus Comment: holding metformin. cont ISS (6) DVT prophylaxis Comment: Eliquis (7) Paroxysmal atrial fibrillation Comment: in NSR now, cont Multaq Status and Disposition: inpatient
[2018-10-13] MEDS ORDERED: Metoprolol Tartrate IV* 1 MG/ML 5 ML VIAL IV PRN (17:15)
[2018-10-13] MEDS ORDERED: Metoprolol Tartrate IV* 1 MG/ML 5 ML VIAL ONE (17:16)
[2018-10-13] MEDS ORDERED: Diltiazem IV push/loading dose 5 MG/ML 5 ML vial (25 mg) IV SLOW PU ONE (17:44)
[2018-10-13] MEDS ORDERED: cefTRIAXone(*) 1 GM in NS 0.9% 50 ML* 50 ML IVPB SCH (18:00)
[2018-10-13] MEDS ORDERED: Metoprolol Succinate XL TAB* 25 MG PO SCH (21:00)
[2018-10-13] MEDS ORDERED: Atorvastatin* 40 MG TAB PO SCH (21:00)
[2018-10-13] MEDS ORDERED: Azithromycin IV(*) 250 MG in NS 0.9% 250 ML* 250 ML IVPB SCH (21:00)
[2018-10-14 05:30] LABS: ABS Eosinophils 0.3 10^3/ul (0-0.6); ABS Lymphocytes 1.5 10^3/ul (1.0-4.8); ABS Monocytes 0.7 10^3/ul (0-0.8); ABS Neutrophils 4.9 10^3/ul (1.5-7.7); Eosinophil % 4.1 %; Hematocrit 34 % (42-52); Hemoglobin 11.4 g/dL (14.0-18.0); Mean Corpuscular HGB Conc 34 g/dL (31-36); Mean Corpuscular Hemoglobin 30 pg (27-31); Mean Corpuscular Volume 89 fL (80-94); Mean Platelet Volume 9.3 fL (7.4-10.4); Platelet Count 238 10^3/uL (150-450); Red Blood Count 3.84 10^6 /uL (4.18-5.48); Red Cell Distribution Width 15 % (10.5-15); White Blood Count 7.4 10^3/uL (3.5-10.8)
[2018-10-14 05:41] LABS: BUN/Creatinine Ratio 18.6 (8-20); Calcium 8.9 mg/dL (8.6-10.3); EGFR African American 83.6 (>60); EGFR Non-African American 69.1 (>60)
[2018-10-14] MEDS: Fluticasone/Vilanterol MDI(NF) 200/25 MDI INH SCH (07:00)
[2018-10-14] MEDS: Tiotropium CAP.INH* CAP.INH/18 MCG (USE ORDER SET !) INH SCH (08:21)
[2018-10-14] MEDS ORDERED: Furosemide TAB* 20 MG PO SCH (09:00)
[2018-10-14] MEDS: CMCS:OMEGA-3 FATTY ACIDS (NF) 1,000 MG CAP PO SCH (09:48)
[2018-10-14] MEDS: Losartan TAB* 25 MG PO SCH (09:48)
[2018-10-14] MEDS: Multivitamins/Minerals TAB PO SCH (09:49)
[2018-10-14] MEDS: Pantoprazole TAB * 40 MG TAB PO SCH (09:49)
[2018-10-14] MEDS: Dronedarone TAB* 400 MG PO SCH (09:49)
[2018-10-14] MEDS: Apixaban* 2.5 MG TAB PO SCH (09:49)
[2018-10-14] MEDS: Aspirin EC TAB* 81 MG TAB.EC PO SCH (09:49)
[2018-10-14] MEDS ORDERED: Metoprolol Tartrate TAB* 25 MG PO ONE (11:53)
[2018-10-14] MEDS ORDERED: Metoprolol Tartrate TAB* 25 MG ONE (11:55)
[2018-10-14 13:32] VITALS: BP 132/69
[2018-10-14] MEDS: Metformin ER (NF) 500 MG TAB PO SCH (13:40)
--- NOTE | 2018-10-14 15:18 | DS ---
CC: Dr. Jennings; Dr. Cordero; Dr. Polo; Samantha Liz NP DISCHARGE SUMMARY: DATE OF ADMISSION: 10/12/18 DATE OF DISCHARGE: To home, 10/14/18. PRIMARY CARE PROVIDER: Dr. Jennings. CONDITION AT DISCHARGE: Stable. DISCHARGE DIAGNOSES: 1. Acute systolic congestive heart failure, which is exacerbation of chronic. 2. Community-acquired pneumonia. SECONDARY DIAGNOSES: 1. History of chronic systolic congestive heart failure with EF of 30% to 35%. 2. History of nonischemic cardiomyopathy. 3. Diabetes type 2. 4. Chronic obstructive pulmonary disease, not on oxygen. 5. History of thoracic aortic aneurysm. 6. Macular degeneration. 7. History of paroxysmal atrial fibrillation. MEDICATIONS AT DISCHARGE: Include: 1. Albuterol inhaler on a p.r.n. basis. 2. Apixaban 2.5 mg b.i.d. 3. Aspirin 81 mg daily. 4. Align 4 mg daily. 5. Cetirizine 10 mg daily. 6. Cinnamon bark 1000 mg daily. 7. Multaq 400 mg b.i.d. 8. Breo Ellipta 1 puff daily. 9. Furosemide 20 mg 3 times a day alternating with Aldactone 25 mg on days when not taking furosemid e. 10. Guaifenesin 600 mg b.i.d. 11. Irbesartan 75 mg daily. The patient is to stop irbesartan once he starts taking Entresto that w as prescribed by Dr. Polo's office. 12. Melatonin 5 mg at bedtime. 13. Metformin ER 500 mg daily. 14. Multivitamin 1 tablet daily. 15. [place]-3 fatty acid 2000 mg daily. 16. Omeprazole 10 mg daily. 17. Aldactone 25 mg as mentioned above. 18. Spiriva 1 inhalation daily. 19. Turmeric root 1 capsule daily. 20. Coenzyme Q10 one capsule daily. 21. Multivitamin with vitamin C, vitamin E, zinc and copper 2 tablets daily. 22. Doxycycline 100 mg b.i.d. for 5 days, then stop. 23. Cefdinir 300 mg b.i.d. for 5 days, then stop. 24. Metoprolol tartrate, increased dose to 25 mg at bedtime from 12.5 before. FOLLOWUP: At discharge, the patient recommended to follow up with his primary care provider in appro ximately 4 to [address] Polo in approximately 1 to 2 weeks. LABORATORY DATA AND STUDIES PERFORMED DURING THE HOSPITAL STAY: Included: On 10/14/18, sodium of 133, potassium 4.0, chloride 99, carbon dioxide 28, BUN 19, creatinine 1.02. Hemoglobin A1c was 6.4. Total cholesterol was 170, triglycerides 88, LDL of 95, and HDL of 57. Troponins throughout this patient's hospital stay were 0.03. CBC: White blood cell count of 7.4, hemoglobin of 11.4, hematocrit of 34, and platelets of 238. Portable chest x-ray obtained on admission, impression: "Small bibasilar infiltrates. Findings cons istent with COPD." The patient's C-reactive protein was 116 on 10/13/18. Microbiology tests were urine legionella antigen and Streptococcus pneumoniae urine antigen was also negative. HOSPITALIZATION COURSE: Indio Estrada is an 88-year-old male with history of paroxysmal atrial fibri llation and cardiomyopathy, who was just recently seen by Dr. Polo's physician psychological assistant, Samantha ayon for a followup of his chronic problems and was noted to have an EF of 35% to 40% documented on . The patient came into the hospital after his erosion control specialist's appointment noted the gideon ent being very dyspneic. Apparently, the patient has had problems with cough for the past several we eks. He denied any increase in weight. His C-reactive protein was markedly elevated and his brain n atriuretic peptide was over 1300 at admission. At that point, the patient also had bout of pulmonary infiltrates. He was diagnosed with both community-acquired pneumonia as well as acute exacerbation of chronic systolic CHF. Please note the patient complained of chest pain at admission, likely relat ed to CHF exacerbation since his troponins had been unremarkable during the hospital stay, and once d iuresis was started, his chest pain resolved. The patient was treated with diuretics as well as broa d-spectrum antibiotics for his pneumonia. He is a rather poor historian and was difficult for us to gather enough information to realize the patient was taking or not taking his diuretics. Eventually after I checked with the patient's pharmacy, he had been taking his Lasix and Aldactone alternating d ays as previously noted. He has not filled his Entresto that was prescribed to him on 10/12/18. By the time of discharge, the patient ambulated in the hallways without any episodes of dyspnea. He stil l has wet cough and has rhonchi at bilateral bases. He was noted to have 2 episodes of paroxysmal atrial fibrillation during the hospital stay, likely re lated to coughing. Both of those resulted after a dose of 5 mg IV Lopressor was administered. The p atgeovanna was asymptomatic during this time and his heart rate was in the 120s. Those episodes lasted m inutes. At this point, to prevent further episodes from happening, I increased the patient's Toprol- XL from 12.5 mg nightly to 25 mg nightly. The patient is also recommended to hold his irbesartan once he starts Entresto. PHYSICAL EXAM AT DISCHARGE: Blood pressure of 132/69, heart rate of 83 and regular, respiratory rate 18, oxygen saturation 100% on room air, temperature 97.5. General: The patient is a very pleasant [age]-year-old male who is in no acute distress. Alert, awake and oriented x3. HEENT: Head: Atraumati c and normocephalic. Eyes: Pupils are equal, reactive to light and accommodation. Oropharynx is martha ar. Mucosa is moist. Neck: Supple. No JVD. No bruits bilaterally. Cardiovascular: Regular rate and rhythm. No murmur. Respiratory: Faint crackles bilateral bases, otherwise clear. Abdomen: So ft, nontender. Bowel sounds are present in all 4 quadrants. Extremities: There is no edema. Pulse s are +2 bilaterally. No clubbing or cyanosis. Neuro Evaluation: Speech clear. Cranial nerves II t hrough XII grossly intact. Motor strength is 5/5 bilaterally. Please note that this is a short summa ry of the patient's hospitalization. Please refer to further medical records for details. TIME SPENT: Approximately 40 minutes was spent on the patient's discharge. [id number]/[facility] #: [id number]
== END 2018-10-14 14:42 | disposition home health service (06) | DRG 291 ==
LOC: ED 17:12 → MEDTELE 21:11 → OBSVTOIN 10-13 13:53
PROVIDERS: ADMIT Internal Medicine; ATTEND Internal Medicine
DX: I50.23 Acute on chronic systolic (congestive) heart failure (principal); J18.8 Other pneumonia, unspecified organism; J44.0 Chronic obstructive pulmonary disease with (acute) lower respiratory infection; I42.9 Cardiomyopathy, unspecified; E87.2 Acidosis; J44.9 Chronic obstructive pulmonary disease, unspecified; I11.0 Hypertensive heart disease with heart failure; I71.2 Thoracic aortic aneurysm, without rupture; E11.9 Type 2 diabetes mellitus without complications; I48.0 Paroxysmal atrial fibrillation; H35.30 Unspecified macular degeneration; Z79.01 Long term (current) use of anticoagulants; Z79.84 Long term (current) use of oral hypoglycemic drugs; Z79.51 Long term (current) use of inhaled steroids; Z79.899 Other long term (current) drug therapy; Z82.49 Family history of ischemic heart disease and other diseases of the circulatory system; Z80.1 Family history of malignant neoplasm of trachea, bronchus and lung; Z80.8 Family history of malignant neoplasm of other organs or systems; Z87.891 Personal history of nicotine dependence
CPT/HCPCS: 36415; 71045; 80048; 80053; 80061; 83036; 83605; 83735; 83880; 84484; 85025; 86140; 87899; 93005; 94640; 99284; A9270-GY; J0456; J0696; J1940; J3490

== ENCOUNTER 2020-02-21 16:43 | Observation (INO) ==
[2020-02-21 17:42] LABS: ABS Eosinophils 0.1 10^3/ul (0-0.6); ABS Lymphocytes 0.9 10^3/ul (1.0-4.8); ABS Monocytes 0.3 10^3/ul (0-0.8); ABS Neutrophils 3.7 10^3/ul (1.5-7.7); Eosinophil % 1.3 %; Hematocrit 39 % (42-52); Hemoglobin 13.1 g/dL (14.0-18.0); Lymphocyte % 18.1 %; Mean Corpuscular HGB Conc 34 g/dL (31-36); Mean Corpuscular Hemoglobin 31 pg (27-31); Mean Corpuscular Volume 93 fL (80-94); Mean Platelet Volume 9.8 fL (7.4-10.4); Platelet Count 183 10^3/uL (150-450); Red Cell Distribution Width 14 % (10-15)
[2020-02-21 18:00] LABS: ALT 17 U/L (7-52); AST 21 U/L (13-39); Albumin 4.2 g/dL (3.2-5.2); Albumin/Globulin Ratio 1.8 (1-3); Alkaline Phosphatase 54 U/L (34-104); Anion Gap 11 mmol/L (2-11); BUN/Creatinine Ratio 21.1 (8-20); Blood Urea Nitrogen 19 mg/dL (6-24); CO2 Carbon Dioxide 25 mmol/L (22-32); Chloride 99 mmol/L (101-111); EGFR African American 96.1 (>60); EGFR Non-African American 79.5 (>60); Globulin 2.3 g/dL (2-4); Glucose 149 mg/dL (70-100); Lipase < 10 U/L (11.0-82.0); Potassium 4.1 mmol/L (3.5-5.0); Sodium 135 mmol/L (135-145); Total Protein 6.5 g/dL (6.4-8.9)
[2020-02-21 18:01] LABS: Troponin I 0.01 ng/mL (<0.03)
[2020-02-21] MEDS ORDERED: Iodixanol (CONTRAST) 320 MG/ML 100 ML SDV IV ONE (18:24)
[2020-02-21] MEDS ORDERED: Metoclopramide 5 MG/ML VIAL (10 mg) IV PRN (21:13)
[2020-02-22] MEDS: Mometasone/Formoter 200/5 MDI INH SCH ×2 (00:50→09:12)
[2020-02-22 02:18] LABS: Troponin I 0.01 ng/mL (<0.03)
[2020-02-22 03:43] LABS: BUN/Creatinine Ratio 15.6 (8-20); EGFR African American 89.2 (>60); EGFR Non-African American 73.8 (>60); HDL Cholesterol 51.3 mg/dL; Potassium 3.4 mmol/L (3.5-5.0)
[2020-02-22] MEDS ORDERED: Cholecalciferol (VIT D3) 400 units TAB PO SCH (09:00)
[2020-02-22] MEDS ORDERED: SPIRIVA Respimat (tiotropium) 2.5 mcg/inh Inhaler INH SCH (09:00)
[2020-02-22] MEDS ORDERED: Potassium Chlor 10 meq TAB PO SCH (09:00)
[2020-02-22] MEDS ORDERED: Multivitamins/Minerals TAB PO SCH (09:00)
[2020-02-22 09:21] LABS: C Reactive Protein 1.95 mg/L (<8.01)
[2020-02-22] MEDS ORDERED: Potassium Chloride LIQUID 20 MEQ/15 ML LIQUID PO ONE (11:05)
[2020-02-22 12:00] VITALS: BP 134/58
[2020-02-22 13:33] LABS: Urine Appearance Clear; Urine Bilirubin Negative (Negative); Urine Blood Negative (Negative); Urine Color Yellow; Urine Glucose Negative (Negative); Urine Ketones 1+ (Negative); Urine Nitrite Negative (Negative); Urine Protein Negative (Negative); Urine Specific Gravity 1.028 (1.010-1.030); Urine Urobilinogen Negative (Negative)
== END 2020-02-22 16:56 | disposition home or self-care (01) ==
LOC: MEDTELE 16:43 → ED 16:43 → MEDTELE 22:49
PROVIDERS: ADMIT Internal Medicine; ATTEND Internal Medicine

== ENCOUNTER 2020-03-23 13:24 | Observation (INO) ==
[2020-03-23] MEDS ORDERED: NS 0.9% 1000 ml BAG 1,000 ML IV ONE (13:46)
[2020-03-23 14:00] LABS: ABS Eosinophils 0.2 10^3/ul (0-0.6); ABS Lymphocytes 0.9 10^3/ul (1.0-4.8); ABS Monocytes 0.7 10^3/ul (0-0.8); ABS Neutrophils 6.8 10^3/ul (1.5-7.7); Eosinophil % 2.7 %; Hematocrit 37 % (42-52); Hemoglobin 12.4 g/dL (14.0-18.0); Lymphocyte % 10.2 %; Mean Corpuscular HGB Conc 34 g/dL (31-36); Mean Corpuscular Hemoglobin 31 pg (27-31); Mean Corpuscular Volume 92 fL (80-94); Mean Platelet Volume 9.2 fL (7.4-10.4); Platelet Count 179 10^3/uL (150-450); Red Blood Count 3.98 10^6 /uL (4.18-5.48); Red Cell Distribution Width 14 % (10-15); White Blood Count 8.7 10^3/uL (3.5-10.8)
[2020-03-23 14:18] LABS: Troponin I 0.01 ng/mL (<0.03)
[2020-03-23 14:19] LABS: Albumin/Globulin Ratio 1.5 (1-3); BUN/Creatinine Ratio 20.6 (8-20); Calcium 9.2 mg/dL (8.6-10.3); EGFR African American 88.2 (>60); EGFR Non-African American 72.9 (>60); Globulin 2.7 g/dL (2-4); Potassium 3.9 mmol/L (3.5-5.0); Total Bilirubin 0.7 mg/dL (0.2-1.0); Total Protein 6.7 g/dL (6.4-8.9)
[2020-03-23] MEDS ORDERED: Al Hydrox/Mg Hydrox/Simet LIQ 30 ML UDC PO PRN (15:06)
[2020-03-23] MEDS ORDERED: Ondansetron 4 mg VIAL 2 MG/ML 2 ml VIAL IV PRN (15:06)
[2020-03-23 15:37] LABS: Magnesium 2.1 mg/dL (1.9-2.7)
[2020-03-23 16:33] LABS: TSH Ultra Thyroid Stim Horm 2.08 mcIU/mL (0.34-5.60)
[2020-03-23] MEDS ORDERED: Prochlorperazine 5 mg/ml 2 ml VIAL (10 mg) IV PRN (18:12)
[2020-03-23] MEDS: Mometasone/Formoter 200/5 MDI INH SCH (20:10)
[2020-03-24] MEDS: Mometasone/Formoter 200/5 MDI INH SCH (07:36)
[2020-03-24] MEDS ORDERED: SPIRIVA Respimat (tiotropium) 2.5 mcg/inh Inhaler INH SCH (09:00)
[2020-03-24] MEDS ORDERED: Aspirin EC 81 mg TAB.EC (enteric coated) PO SCH (09:00)
[2020-03-24] MEDS ORDERED: Cholecalciferol (VIT D3) 1,000 unit TAB PO SCH (09:00)
[2020-03-24 13:45] VITALS: BP 123/47
== END 2020-03-24 15:30 | disposition home or self-care (01) ==
LOC: MEDTELE 13:24 → ED 13:24
PROVIDERS: ADMIT Pediatrics; ATTEND Pediatrics